=== PATIENT | male | born 1950 | race African-American/Black ===

== ENCOUNTER 2016-12-23 09:39 | Inpatient (IN) | payer MEDICAID, OTHER ==
[~2016-12-23] VITALS: Ht 175.3 cm; Wt 86.2 kg
--- NOTE | 2016-12-23 09:32 | Emergency Room Report ---
History of Present Illness General Source: Medical Record, EMS Present Illness HPI Patient is a 66-year-old male brought in by EMS after increased heart rate. Patient had a prior history of being vent and her trach dependent. Patient was noted to have elevated heart rate which had improved by the time the patient was transferred to the hospital. Patient was noted to have a prior history of COPD as well as prior tracheostomy in the past. Patient was noted to have any fever. Allergies: Coded Allergies: No Known Allergies (Unverified , 11/23/14) Patient History Reviewed Nursing Documentation: PMH: Agreed, PSxH: Agreed Review of Systems All Other Systems: limited - by mental status Physical Exam Sp02 EP Interpretation: reviewed, normal General Appearance: normal inspection, alert, mild distress, Chronically Ill Head: atraumatic ENT: normal ENT inspection, hearing grossly normal, normal voice Neck: normal inspection, supple, no bony tend, tracheotomy Respiratory: normal inspection, no retraction, no wheezing, rhonchi Cardiovascular #1: no edema, tachycardia Gastrointestinal: normal inspection, normal bowel sounds, non tender, soft, no guarding, no hernia Genitourinary: no CVA tenderness Musculoskeletal: normal inspection, back normal, decreased range of motion, other - extension contracture bilateral lower extremities Neurologic: normal inspection, alert, responsive, speech normal Psychiatric: normal inspection, mood/affect normal Skin: no rash, other - decubitus to sacrum Medical Decision Making Diagnostic Impression: Primary Impression: PNA (pneumonia) Additional Impressions: Lactic acidosis Renal calculus ER Course Patient presented for tachycardia. Differential diagnosis included wasn't limited to sepsis, medication withdrawal, thyroid storm, anemia, pulmonary embolism among others.Because of complexity of patient's case laboratory testing and imaging studies were ordered.I laboratory testing was notable for elevated white blood count. The patient's lack gas level is minimally elevated. CT abdomen pelvis was ordered due to the patient's abdominal distention. The CT read by radiology showed nonobstructing renal stone, there bilateral lung infiltrates with questionable underlying mass. Dr. Abrahan Umana was contracted for inpatient management. Labs Test 12/23/16 09:50 12/23/16 11:09 12/23/16 11:58 White Blood Count 12.2 K/UL (4.8-10.8) Red Blood Count 4.73 M/UL (4.70-6.10) Hemoglobin 14.9 G/DL (14.2-18.0) Hematocrit 44.5 % (42.0-52.0) Mean Corpuscular Volume 94 FL (80-99) Mean Corpuscular Hemoglobin 31.6 PG (27.0-31.0) Mean Corpuscular Hemoglobin Concent 33.5 G/DL (32.0-36.0) Red Cell Distribution Width 11.8 % (11.6-14.8) Platelet Count 265 K/UL (150-450) Mean Platelet Volume 7.6 FL (6.5-10.1) Neutrophils (%) (Auto) 77.7 % (45.0-75.0) Lymphocytes (%) (Auto) 13.7 % (20.0-45.0) Monocytes (%) (Auto) 5.4 % (1.0-10.0) Eosinophils (%) (Auto) 1.8 % (0.0-3.0) Basophils (%) (Auto) 1.5 % (0.0-2.0) Sodium Level 136 mEQ/L (135-145) Potassium Level 4.7 mEQ/L (3.4-4.9) Chloride Level 95 mEQ/L (98-107) Carbon Dioxide Level 25 mEQ/L (20-30) Anion Gap 16 (5-15) Blood Urea Nitrogen 19 mg/dL (7-23) Creatinine 0.6 mg/dL (0.7-1.2) Estimat Glomerular Filtration Rate > 60 mL/min (>60) Glucose Level 122 mg/dL (74-106) Calcium Level 9.6 mg/dL (8.6-10.2) Total Bilirubin 0.7 mg/dL (0.0-1.2) Aspartate Amino Transf (AST/SGOT) 111 U/L (5-40) Alanine Aminotransferase (ALT/SGPT) 109 U/L (3-41) Alkaline Phosphatase 144 U/L (40-129) Total Protein 9.1 g/dL (6.6-8.7) Albumin 3.5 g/dL (3.5-5.2) Globulin 5.6 g/dL Albumin/Globulin Ratio 0.6 (1.0-2.7) Lipase 25 U/L (< 60) Urine Color Pale yellow Urine Appearance Turbid Urine pH 8 (4.5-8.0) Urine Specific [place] 1.010 (1.005-1.035) Urine Protein 2+ (NEGATIVE) Urine Glucose (UA) Negative (NEGATIVE) Urine Ketones Negative (NEGATIVE) Urine Occult Blood 4+ (NEGATIVE) Urine Nitrite Positive (NEGATIVE) Urine Bilirubin Negative (NEGATIVE) Urine Urobilinogen 1 MG/DL (0.0-1.0) Urine Leukocyte Esterase 3+ (NEGATIVE) Urine RBC 5-10 /HPF (0 - 0) Urine WBC 10-15 /HPF (0 - 0) Urine Squamous Epithelial Cells Occasional /LPF Urine Bacteria Moderate /HPF (NONE) Lactic Acid Level 1.60 mmol/L (0.66-2.22) EKG Diagnostic Results Rate: normal - 100 Rhythm: NSR ST Segments: no acute changes ASA given to the pt in ED: No Rhythm Strip Diag. Results EP Interpretation: yes Rhythm: NSR, no PVC's, no ectopy Status: unchanged Disposition: ADMITTED INPATIENT Condition: Serious Casey Vann December 23, 2016 09:32
[~2016-12-23 09:39] MED LIST: ACETAMINOP160 MG/52 GT; ALBUTEROL2.5 MG/3 M INH; AMIKACIN MC; ASCORBIC ACID500 M4 GT; ASPIR 8181 MG ORAL; ASPIRIN81 MG GT; BISACODYL5 MG RECTAL; CALCIUM 500 +1 EAC5 GT; CATAPRES0.1 MG GT; CEFEPIME-D1 GM/50 ML IVPB; COLACE100 MG/10 GT; CRANBERRY450 M4 GT; DIFLUCAN100 MG ORAL; DILANTIN100 MG GT; EPOGEN2000 UNIT/ SUBQ; FERROUS SU300 MG/5 M GT; FERROUS SULFAT325 MG HE; FLAGYL500 MG GT; FLEET ENEMA133 ML RECTAL; HEPARIN SO5000 UNIT2 SUBQ; HEPARIN1000 UNIT/ SUBQ; JUVEN PACKET1 EAC1 GT; LISINOPRIL10 MG GT; LISINOPRIL5 MG GT; METOPROLOL TART25 MG GT; MILK OF MA400 MG/51 ORAL; MULTI VITAMIN1 EACH GT; NEXIUM40 MG ORAL; NOVOLOG100 UNIT/3 SUBQ; NS IV; PROTONIX40 M2 GT; SULFAMETHOXAZO473 ML GT; TYLENOL650 MG/20. ORAL; VANCOMYCIN1 GM/2502 IVPB; VITAMIN C500 M1 GT; ZINC SULFATE220 M1 GT; regular insulin
[2016-12-23] MEDS ORDERED: TENORMIN25 MG GT (09:55)
[2016-12-23] MEDS ORDERED: KEPPRA500 M4 GT (09:55)
[2016-12-23] MEDS ORDERED: LOPERAMIDE2 MG GT (09:55)
[2016-12-23] MEDS ORDERED: ATIVAN0.5 MG GT (09:55)
[2016-12-23 10:25] LABS: BASOPHILS % (AUTO) 1.5 % (0.0-2.0); EOSINOPHILS % (AUTO) 1.8 % (0.0-3.0); LYMPHOCYTES % (AUTO) 13.7 % (20.0-45.0); MEAN CORPUSCULAR HEMOGLOBIN 31.6 PG (27.0-31.0); MEAN CORPUSCULAR HGB CONC 33.5 G/DL (32.0-36.0); MEAN CORPUSCULAR VOLUME 94 FL (80-99); MEAN PLATELET VOLUME 7.6 FL (6.5-10.1); MONOCYTES % (AUTO) 5.4 % (1.0-10.0); NEUTROPHILS % (AUTO) 77.7 % (45.0-75.0); PLATELET COUNT 265 K/UL (150-450); RED BLOOD COUNT 4.73 M/UL (4.70-6.10); RED CELL DISTRIBUTION WIDTH 11.8 % (11.6-14.8); WHITE BLOOD COUNT 12.2 K/UL (4.8-10.8)
[2016-12-23 10:38] LABS: ALANINE AMINOTRANSFERASE 109 U/L (3-41); ALBUMIN/GLOBULIN RATIO 0.6 (1.0-2.7); ANION GAP 16 (5-15); ASPARTATE AMINO TRANSFERASE 111 U/L (5-40); CALCIUM 9.6 mg/dL (8.6-10.2); CARBON DIOXIDE 25 mEQ/L (20-30); CHLORIDE 95 mEQ/L (98-107); CREATININE 0.6 mg/dL (0.7-1.2); GLOMERULAR FILTRATION RATE > 60 mL/min (>60); HEMOLYSIS 23; LIPASE 25 U/L (< 60); POTASSIUM 4.7 mEQ/L (3.4-4.9); SODIUM 136 mEQ/L (135-145); TOTAL PROTEIN 9.1 g/dL (6.6-8.7)
[2016-12-23 10:40] LABS: REFLEX LACTIC ACID YES OR NO YES
[2016-12-23 10:51] VITALS: BP 149/98
[2016-12-23] MEDS ORDERED: OYSTER SHELL 51 EAC1 GT (11:06)
[2016-12-23] MEDS ORDERED: PROMOD946 ML GT (11:06)
[2016-12-23 11:50] LABS: APPEARANCE,URINE TURBID; KETONES,URINE NEGATIVE (NEGATIVE); LEUKOCYTE ESTERASE ,URINE 3+ (NEGATIVE); NITRITE,URINE POSITIVE (NEGATIVE); PH,URINE 8 (4.5-8.0); PROTEIN,URINE 2+ (NEGATIVE); UROBILINOGEN,URINE 1 MG/DL (0.0-1.0)
[2016-12-23 12:05] VITALS: BP 106/75
[2016-12-23] MEDS ORDERED: Ampicillin/Sulbactam Sod 3 GM in NS 110 ML IVPB ONE (12:15)
[2016-12-23 12:23] LABS: BACTERIA,URINE MODERATE /HPF; SQUAMOUS EPITHELIAL CELL,UR OCCASIONAL /LPF (NONE/OCC)
--- NOTE | 2016-12-23 13:08 | Diagnostic Imaging Report ---
Clinical Indication: Abdominal pain with abdominal distention gastrostomy site Technique: Patient given enteric contrast. IV administration nonionic contrast. Venous phase spiral acquisition obtained through the abdomen and pelvis. Multiplanar reconstructions were generated. Total dose length product 915 mGycm. CTDIvol(s) 17 mGy. Dose reduction achieved using automated exposure control Comparison: None Findings: There is a gastrostomy in good position, balloon within the gastric body, well apposed to the abdominal wall. There is no infiltration or other abnormality of the surrounding subcutaneous fat. No gastric distention. Stomach and duodenum otherwise grossly unremarkable. Unremarkable distal esophagus. Contrast is seen throughout the entirety of the small bowel and most of the colon. No small bowel distention or small bowel wall thickening is evident. Normal appendix. No evidence of diverticulosis or diverticulitis. No free or loculated intraperitoneal air or fluid is evident. There is diastasis of the rectus abdominis tendon, with anterior protrusion of the midline bowel, but no harshad herniation. There is a Robles catheter within the bladder. The bladder has an unusual appearance, appearing somewhat elongated with a portion of it projecting over the pubic symphysis. There are also some calcifications probably within the posterior bladder wall. These are not intraluminal. The seminal vesicles are unremarkable. No pelvic mass or adenopathy. The liver demonstrates diffuse low attenuation, compatible with fatty change. No focal abnormality. It is mildly enlarged. The gallbladder, pancreas, bile are unremarkable. The spleen is borderline enlarged, measuring 13.4 cm long axis dimension. The adrenals are unremarkable. Left kidney demonstrates a nonobstructive calculus within the upper pole renal sinus. It also demonstrates a subcentimeter low-attenuation lesion in the cortex which is too small to characterize. The right kidney is unremarkable. There is no hydronephrosis. No retroperitoneal or mesenteric mass or adenopathy. There is nonspecific stranding of the fat of the bilateral buttock regions extending laterally. There is thickening of the skin and subcutaneous fat adjacent to the distal sacrum and coccyx, compatible with decubitus changes. No ulceration or definite osseous abnormality is evident. There are degenerative changes of the bilateral hips. Fairly extensive consolidation is seen at both lung bases posteriorly. There are also masslike opacities at both lung bases. No effusions. The heart is upper limits of normal in size. There is prominent pericardial fat. Impression: No acute abnormality. No abnormal findings relatable to the gastrostomy tube Diastasis of the rectus abdominis tendon resulting in anterior protrusion of abdominal contents, without harshad herniation. This probably accounts for the clinically described abdominal distention. No evidence of bowel obstruction. Fairly extensive consolidation at both lung bases posteriorly. Masslike opacities at both lung bases probably represent areas of consolidation as well, followup but is recommended to exclude underlying neoplasm Unusual appearance to the bladder, as described. Apparent posterior wall bladder mural calcifications are probably dystrophic. There is also Robles catheter in place Hypoattenuating liver, compatible with diffuse fatty change. Liver is mildly enlarged Mild decubitus changes of the retrograde sacrococcygeal fat. No harshad ulceration or evidence of osteomyelitis. Correlation with clinical findings is recommended Borderline splenomegaly Nonobstructive left upper pole renal calculus Subcentimeter low-attenuation lesion within the left renal cortex, too small to characterize, most likely benign simple cortical cysts. No further followup necessary Bilateral hip degenerative changes The CT scanner at [facility] is accredited by -- the [place] [employer] and the scans are performed using protocols designed to limit radiation exposure to as low as reasonably achievable to attain images of sufficient resolution adequate for diagnostic evaluation.
[2016-12-23] MEDS ORDERED: Unasyn 3gm Inj ONE (13:14)
[2016-12-23 13:45] VITALS: BP 132/78
[2016-12-23 13:47] VITALS: BP 162/116
[2016-12-23 16:00] VITALS: BP 123/72
[2016-12-23] MEDS ORDERED: LORazepam 0.5mg tab GT PRN (16:15)
[2016-12-23] MEDS ORDERED: Bisacodyl EC 5mg tab ORAL PRN (16:15)
[2016-12-23] MEDS ORDERED: Milk of Magnesia 30ml Ud ORAL PRN (16:15)
[2016-12-23] MEDS ORDERED: Acetaminophen 650mg/20.3ml ORAL SCH (17:00)
[2016-12-23] MEDS: Docusate 100mg/10ml Liq GT SCH (17:53)
[2016-12-23] MEDS: NovoLOG Insulin Flexpen SUBQ SCH (17:54)
[2016-12-23] MEDS ORDERED: Acetaminophen 650mg/20.3ml ORAL PRN (18:30)
[2016-12-23] MEDS ORDERED: LORazepam Inj 2mg/ml 1ml IV PRN (19:00)
[2016-12-23] MEDS: Albuterol ud Inhalation HHN SCH (19:07)
--- NOTE | 2016-12-23 19:24 | Wound Care Consultation ---
Wound Assessment Wound Assessment #1: Wound Present on Admission: Yes New Wound: No Status Change of Wound: No Wound Location Body Site Modif: mid Wound Location Body Site: sacral Wound Type: pressure ulcer Zuleika Test: Does not Zuleika Wound Thickness: Full Thickness - scar tissue Wound Length: 6.0 Wound Width: 7.0 Wound Depth: utd Percent of Wound [place]/Red: 100 Wound Drainage Amount: None Wound Drainage Odor: None/Absent Tissue Surrounding Wound: Intact Wound General Appearance: Asymptomatic, Reddened, Open to air Wound Assessment #2: Wound Number: #2 Wound Present on Admission: Yes New Wound: No Status Change of Wound: No Wound Location Body Site Modif: right Wound Location Body Site: iliac crest Wound Type: pressure ulcer Zule[place] Test: Does not Z[place]ika Wound Thickness: Full Thickness - scar tissue Wound Length: 2.0 Wound Width: 3.0 Wound Depth: utd Percent of Wound [place]/Red: 100 Wound Drainage Amount: None Wound Drainage Odor: None/Absent Tissue Surrounding Wound: Intact Wound General Appearance: Asymptomatic, Reddened Wound Comment #1 Sacral full thickness scar tissue pressure ulcer #2 Right iliac crest full thickness scar tissue pressure ulcer Recommendation -Low air loss mattress -Keep clean and dry -Turn and reposition -Optimize nutrition -Offload both heels -Heel protector on both heels -Assess and f/u accordingly for any changes STEPHANIE WASHBURN RN December 23, 2016 19:24
[2016-12-23 20:00] VITALS: BP 141/82
[2016-12-23] MEDS ORDERED: Vancomycin 1.5 GM in D5W 325 ML IVPB ONE (20:00)
[2016-12-23] MEDS ORDERED: Phenytoin 100mg cap ORAL SCH ×2 (22:00)
[2016-12-23] MEDS: Ferrous Sulfate 300 MG/5 ML UDC GT SCH (22:03)
[2016-12-23] MEDS: levETIRAcetam 500mg/5ml Liquid GT SCH (22:04)
[2016-12-23] MEDS: Heparin 5000 units/ml inj SUBQ SCH (22:05)
[2016-12-23] MEDS: Piperacillin/Tazobactam 3.375 GM in D5W 110 ML IVPB SCH (22:05)
[2016-12-23] MEDS: metroNIDAZOLE 500mg tab GT SCH (22:05)
[2016-12-23] MEDS: Pantoprazole Inj IVP SCH (22:13)
[2016-12-24] VITALS: BP 144/78
--- NOTE | 2016-12-24 01:02 | History and Physical Report ---
DATE OF ADMISSION: 12/23/2016 REASON FOR ADMISSION: Elevated heart rate and respiratory distress. HISTORY OF PRESENT ILLNESS: The patient is a 66-year-old male, brought in for evaluation due to unstable vital signs. The patient is seen and evaluated and noted to have some abdominal pain. The patient's findings discussed with the ER physician. The patient also has evidence of pneumonia and mass-like opacities at both lung bases likely representing consolidation. PAST MEDICAL HISTORY: The patient's past medical history is notable for long standing history of respiratory failure, history of chronic encephalopathy, history of tracheostomy, and history of G-tube. MEDICATIONS: Reviewed. ALLERGIES: Reviewed. SOCIAL HISTORY: The patient resides at a [facility] facility and bedbound. PHYSICAL EXAMINATION: VITAL SIGNS: Noted and reviewed. Blood pressure 123/72, pulse 85, respirations 18, sats 91%, and temperature 97.9 degrees. HEENT: Fairly negative. NECK: Supple. No adenopathy. LUNGS: Clear and symmetric. CARDIAC: S1 and S2. Regular rate and rhythm. ABDOMEN: Soft and nontender. EXTREMITIES: No edema. NEUROLOGIC: Poorly responsive. LABORATORY DATA: Reviewed. IMPRESSION: 1. Evidence of bilateral pneumonia. 2. Elevated liver enzymes of unclear significance. 3. Seizure disorder. 4. Chronic encephalopathy. 5. Tracheostomy. 6. Gastrostomy tube. RECOMMENDATIONS: 1. Ventilatory management. 2. IV antibiotics. 3. Followup cultures. 4. Ventilatory support. 5. Feeding. 6. Resume shelter medications and follow clinically for changes and ongoing recommendations. Abrahan Umana M.D. DR: BROOKS JOB#: [id number] CC:
[2016-12-24] MEDS: Albuterol ud Inhalation HHN SCH ×4 (01:27→19:02)
[2016-12-24 04:00] VITALS: BP 135/78
[2016-12-24 04:28] LABS: ANION GAP 11 (5-15); CALCIUM 8.9 mg/dL (8.6-10.2); CARBON DIOXIDE 28 mEQ/L (20-30); CHLORIDE 100 mEQ/L (98-107); CREATININE 0.6 mg/dL (0.7-1.2); GLOMERULAR FILTRATION RATE > 60 mL/min (>60); HEMOLYSIS 9; POTASSIUM 4.3 mEQ/L (3.4-4.9); SODIUM 139 mEQ/L (135-145)
[2016-12-24 04:36] LABS: BASOPHILS % (AUTO) 1.1 % (0.0-2.0); EOSINOPHILS % (AUTO) 5.5 % (0.0-3.0); LYMPHOCYTES % (AUTO) 20.6 % (20.0-45.0); MEAN CORPUSCULAR HEMOGLOBIN 31.8 PG (27.0-31.0); MEAN CORPUSCULAR HGB CONC 33.8 G/DL (32.0-36.0); MEAN CORPUSCULAR VOLUME 94 FL (80-99); MEAN PLATELET VOLUME 7.5 FL (6.5-10.1); MONOCYTES % (AUTO) 10.7 % (1.0-10.0); PLATELET COUNT 208 K/UL (150-450); RED BLOOD COUNT 4.14 M/UL (4.70-6.10); RED CELL DISTRIBUTION WIDTH 11.7 % (11.6-14.8); WHITE BLOOD COUNT 6.8 K/UL (4.8-10.8)
[2016-12-24] MEDS: NovoLOG Insulin Flexpen SUBQ SCH ×4 (05:59→17:55)
[2016-12-24] MEDS: metroNIDAZOLE 500mg tab GT SCH ×3 (06:00→21:53)
[2016-12-24] MEDS: Piperacillin/Tazobactam 3.375 GM in D5W 110 ML IVPB SCH ×3 (06:00→22:01)
[2016-12-24 08:00] VITALS: BP 126/71
[2016-12-24] MEDS: Docusate 100mg/10ml Liq GT SCH ×2 (09:15→17:53)
[2016-12-24] MEDS: Aspirin Baby 81mg GT SCH (09:15)
[2016-12-24] MEDS: Zinc Sulfate 220mg cap GT SCH (09:16)
[2016-12-24] MEDS: Ascorbic Acid 500mg tab GT SCH (09:16)
[2016-12-24] MEDS: Pantoprazole Inj IVP SCH ×2 (09:17→21:53)
[2016-12-24] MEDS: Ferrous Sulfate 300 MG/5 ML UDC GT SCH ×2 (09:17→21:53)
[2016-12-24] MEDS: Multivitamins W/Minerals 15 ML UDC GT SCH (09:17)
[2016-12-24] MEDS: Heparin 5000 units/ml inj SUBQ SCH ×2 (09:23→21:54)
[2016-12-24] MEDS: Calcium Carbonate 500mg w/Vit D 200iu tab GT SCH (09:26)
[2016-12-24] MEDS: levETIRAcetam 500mg/5ml Liquid GT SCH ×2 (09:27→21:53)
[2016-12-24] MEDS: Fluconazole 100mg tab GT SCH (09:27)
[2016-12-24] MEDS: Atenolol 25mg tab GT SCH (09:27)
--- NOTE | 2016-12-24 09:35 | General Progress Note ---
Assessment/Plan Assessment/Plan IMPRESSION: 1. Evidence of bilateral pneumonia. 2. Elevated liver enzymes of unclear significance. 3. Seizure disorder. 4. Chronic encephalopathy. 5. Tracheostomy. 6. Gastrostomy tube. PLAN antibiotics follow up cultures vent meds follow up imaging and labs impression, plan, and exam edited and reviewed in detail care discussed with RN Subjective ROS Limited/Unobtainable: Yes Allergies: Coded Allergies: No Known Allergies (Unverified , 11/23/14) Subjective poor LOC Objective Last 24 Hour Vital Signs Date Time Temp Pulse Resp B/P Pulse Ox O2 Delivery O2 Flow Rate FiO2 12/24/16 09:27 100 126/71 12/24/16 07:22 105 27 100 Mechanical Ventilator 50 12/24/16 07:04 104 30 100 Mechanical Ventilator 50 12/24/16 07:03 104 30 50 12/24/16 05:25 86 29 50 12/24/16 04:00 88 12/24/16 04:00 97.9 88 25 135/78 100 Mechanical Ventilator 50 12/24/16 04:00 50 12/24/16 03:38 84 23 50 12/24/16 01:39 85 20 99 Mechanical Ventilator 50 12/24/16 01:27 84 22 99 Mechanical Ventilator 50 12/24/16 01:25 84 23 50 12/24/16 00:00 50 12/24/16 00:00 98.7 86 30 144/78 100 Mechanical Ventilator 50 12/24/16 00:00 84 12/23/16 23:24 82 26 50 12/23/16 21:20 79 19 50 12/23/16 20:00 88 12/23/16 20:00 50 12/23/16 20:00 99.0 86 19 141/82 100 Mechanical Ventilator 50 12/23/16 19:23 86 19 99 Mechanical Ventilator 50 12/23/16 19:07 85 19 99 Mechanical Ventilator 50 12/23/16 18:55 86 20 50 12/23/16 18:55 86 20 Mechanical Ventilator 50 12/23/16 16:50 93 26 50 12/23/16 16:00 97.9 85 18 123/72 99 Mechanical Ventilator 50 12/23/16 16:00 89 12/23/16 15:47 50 12/23/16 14:50 91 28 50 12/23/16 14:46 99.8 84 18 132/78 100 Mechanical Ventilator 50 12/23/16 13:45 99.8 84 18 132/78 100 Mechanical Ventilator 50 12/23/16 12:50 93 24 50 12/23/16 12:05 99.8 88 106/75 100 Mechanical Ventilator 50 12/23/16 11:10 86 28 50 12/23/16 10:51 97.9 88 18 149/98 100 Mechanical Ventilator 50 12/23/16 09:40 97 26 50 12/23/16 09:40 97 26 Mechanical Ventilator 50 Intake and Output 12/23/16 12/24/16 19:00 07:00 Intake Total 1265 ml 1662.5 ml Output Total 250 ml 1500 ml Balance 1015 ml 162.5 ml Intake Free Water 100 ml IV Total 100 ml 1662.5 ml Tube Feeding 65 ml Other 1000 ml Output Urine Total 250 ml 1500 ml Laboratory Tests 12/23/16 09:50: White Blood Count 12.2H, Red Blood Count 4.73, Hemoglobin 14.9, Hematocrit 44.5 , Mean Corpuscular Volume 94, Mean Corpuscular Hemoglobin 31.6H, Mean Corpuscular Hemoglobin Concent 33.5, Red Cell Distribution Width 11.8, Platelet Count 265, Mean Platelet Volume 7.6, Neutrophils (%) (Auto) 77.7H, Lymphocytes ( %) (Auto) 13.7L, Monocytes (%) (Auto) 5.4, Eosinophils (%) (Auto) 1.8, Basophils (%) (Auto) 1.5, Sodium Level 136, Potassium Level 4.7, Chloride Level 95L, Carbon Dioxide Level 25, Anion Gap 16H, Blood Urea Nitrogen 19, Creatinine 0.6L, Estimat Glomerular Filtration Rate > 60, Glucose Level 122H, Lactic Acid Level 2.10, Calcium Level 9.6, Total Bilirubin 0.7, Aspartate Amino Transf (AST/ SGOT) 111H, Alanine Aminotransferase (ALT/SGPT) 109H, Alkaline Phosphatase 144H , Total Protein 9.1H, Albumin 3.5, Globulin 5.6, Albumin/Globulin Ratio 0.6L, Lipase 25 12/23/16 11:09: Urine Color Pale yellow, Urine Appearance Turbid, Urine pH 8, Urine Specific [place] 1.010, Urine Protein 2+H, Urine Glucose (UA) Negative, Urine Ketones Negative, Urine Occult Blood 4+H, Urine Nitrite PositiveH, Urine Bilirubin Negative, Urine Urobilinogen 1H, Urine Leukocyte Esterase 3+H, Urine RBC 5-10H, Urine WBC 10-15H, Urine Squamous Epithelial Cells Occasional, Urine Bacteria ModerateH 12/23/16 11:58: Lactic Acid Level 1.60 12/24/16 03:50: White Blood Count 6.8, Red Blood Count 4.14L, Hemoglobin 13.2L, Hematocrit 38.9L , Mean Corpuscular Volume 94, Mean Corpuscular Hemoglobin 31.8H, Mean Corpuscular Hemoglobin Concent 33.8, Red Cell Distribution Width 11.7, Platelet Count 208, Mean Platelet Volume 7.5, Neutrophils (%) (Auto) 62.0, Lymphocytes (% ) (Auto) 20.6, Monocytes (%) (Auto) 10.7H, Eosinophils (%) (Auto) 5.5H, Basophils (%) (Auto) 1.1, Sodium Level 139, Potassium Level 4.3, Chloride Level 100, Carbon Dioxide Level 28, Anion Gap 11, Blood Urea Nitrogen 12, Creatinine 0.6L, Estimat Glomerular Filtration Rate > 60, Glucose Level 118H, Calcium Level 8.9 Height (Feet): 5 Height (Inches): 9.00 Weight (Pounds): 190 Objective HEENT: Fairly negative. NECK: Supple. No adenopathy. LUNGS: Clear and symmetric. CARDIAC: S1 and S2. Regular rate and rhythm. ABDOMEN: Soft and nontender. EXTREMITIES: No edema. NEUROLOGIC: Poorly responsive. PETERSON CALL December 24, 2016 09:35
[2016-12-24 12:00] VITALS: BP 139/73
[2016-12-24 16:15] VITALS: BP 131/78
[2016-12-24 20:00] VITALS: BP 133/71
[2016-12-24] MEDS: Vancomycin 1250mg in D5W 275ml IVPB SCH (20:33)
[2016-12-25] VITALS: BP 131/66
[2016-12-25] MEDS: NovoLOG Insulin Flexpen SUBQ SCH ×4 (01:02→17:44)
[2016-12-25] MEDS: Albuterol ud Inhalation HHN SCH ×4 (01:12→19:03)
[2016-12-25 04:06] VITALS: BP 134/79
[2016-12-25] MEDS: metroNIDAZOLE 500mg tab GT SCH ×3 (06:03→22:49)
[2016-12-25] MEDS: Piperacillin/Tazobactam 3.375 GM in D5W 110 ML IVPB SCH ×3 (06:03→22:30)
[2016-12-25 08:00] VITALS: BP 123/81
--- NOTE | 2016-12-25 08:51 | General Progress Note ---
Assessment/Plan Assessment/Plan IMPRESSION: 1. Evidence of bilateral pneumonia. -GNR 2. Elevated liver enzymes of unclear significance. 3. Seizure disorder. 4. Chronic encephalopathy. 5. Tracheostomy. 6. Gastrostomy tube. PLAN antibiotics as is follow up cultures and sens vent meds follow up imaging and labs hope to dc soon impression, plan, and exam edited and reviewed in detail care discussed with RN Subjective ROS Limited/Unobtainable: Yes Allergies: Coded Allergies: No Known Allergies (Unverified , 11/23/14) Subjective poor LOC Objective Last 24 Hour Vital Signs Date Time Temp Pulse Resp B/P Pulse Ox O2 Delivery O2 Flow Rate FiO2 12/25/16 08:09 50 12/25/16 08:00 98.1 94 24 123/81 100 Mechanical Ventilator 40 12/25/16 06:35 91 28 100 Mechanical Ventilator 40 12/25/16 06:35 90 30 40 12/25/16 06:25 90 28 100 Mechanical Ventilator 40 12/25/16 05:20 83 19 40 12/25/16 04:06 98.1 86 18 134/79 99 Mechanical Ventilator 12/25/16 04:00 87 12/25/16 04:00 50 12/25/16 03:08 81 18 40 12/25/16 02:02 93 22 99 Mechanical Ventilator 40 12/25/16 01:12 80 18 97 Mechanical Ventilator 40 12/25/16 01:00 80 18 40 12/25/16 00:00 97.9 85 18 131/66 97 Mechanical Ventilator 12/25/16 00:00 50 12/24/16 23:36 85 12/24/16 23:12 79 30 40 12/24/16 21:23 81 24 40 12/24/16 20:00 50 12/24/16 20:00 98.4 93 19 133/71 98 Mechanical Ventilator 40 12/24/16 19:14 85 12/24/16 19:13 90 23 40 12/24/16 19:12 90 23 99 Mechanical Ventilator 40 12/24/16 19:03 86 33 96 Mechanical Ventilator 50 12/24/16 17:03 92 32 40 12/24/16 16:15 97.9 92 25 131/78 98 Mechanical Ventilator 40 12/24/16 16:06 50 12/24/16 16:00 99 12/24/16 15:05 90 34 40 12/24/16 13:55 105 25 100 Mechanical Ventilator 40 12/24/16 13:45 90 34 97 Mechanical Ventilator 50 12/24/16 12:55 87 31 40 12/24/16 12:00 88 12/24/16 12:00 98.1 91 139/73 Mechanical Ventilator 50 12/24/16 12:00 50 12/24/16 11:03 70 28 40 12/24/16 09:27 100 126/71 12/24/16 09:17 95 18 40 Intake and Output 12/24/16 12/25/16 19:00 07:00 Intake Total 2185.0 ml 2460.000 ml Output Total 751 ml Balance 1434.0 ml 2460.000 ml Intake Free Water 100 ml 300 ml IV Total 1065.0 ml 1385.000 ml Tube Feeding 780 ml 715 ml Other 240 ml 60 ml Output Urine Total 750 ml Stool Total 1 ml # Bowel Movements 2 3 Height (Feet): 5 Height (Inches): 9.00 Weight (Pounds): 190 Objective HEENT: Fairly negative. NECK: Supple. No adenopathy. LUNGS: Clear and symmetric. CARDIAC: S1 and S2. Regular rate and rhythm. ABDOMEN: Soft and nontender. EXTREMITIES: No edema. NEUROLOGIC: Poorly responsive. PETERSON CALL December 25, 2016 08:51
[2016-12-25] MEDS ORDERED: Fleet's Enema 133ml RECTAL PRN (09:00)
[2016-12-25] MEDS: Aspirin Baby 81mg GT SCH (09:28)
[2016-12-25] MEDS: Multivitamins W/Minerals 15 ML UDC GT SCH (09:29)
[2016-12-25] MEDS: Zinc Sulfate 220mg cap GT SCH (09:29)
[2016-12-25] MEDS: Pantoprazole Inj IVP SCH ×2 (09:29→20:20)
[2016-12-25] MEDS: Calcium Carbonate 500mg w/Vit D 200iu tab GT SCH (09:29)
[2016-12-25] MEDS: Fluconazole 100mg tab GT SCH (09:30)
[2016-12-25] MEDS: Docusate 100mg/10ml Liq GT SCH ×2 (09:30→17:39)
[2016-12-25] MEDS: Ferrous Sulfate 300 MG/5 ML UDC GT SCH ×2 (09:30→20:19)
[2016-12-25] MEDS: Ascorbic Acid 500mg tab GT SCH (09:31)
[2016-12-25] MEDS: Atenolol 25mg tab GT SCH (09:31)
[2016-12-25] MEDS: levETIRAcetam 500mg/5ml Liquid GT SCH ×2 (09:31→20:20)
[2016-12-25] MEDS: Heparin 5000 units/ml inj SUBQ SCH ×2 (09:33→20:22)
[2016-12-25 12:00] VITALS: BP 128/74
[2016-12-25 16:00] VITALS: BP 112/78
[2016-12-25 20:00] VITALS: BP 126/73
[2016-12-25] MEDS: Vancomycin 1250mg in D5W 275ml IVPB SCH (20:19)
[2016-12-26] VITALS: BP 133/85
[2016-12-26] MEDS: NovoLOG Insulin Flexpen SUBQ SCH ×3 (00:33→12:13)
[2016-12-26] MEDS: Albuterol ud Inhalation HHN SCH ×3 (00:39→12:52)
[2016-12-26 04:00] VITALS: BP 128/78
[2016-12-26] MEDS: metroNIDAZOLE 500mg tab GT SCH (06:35)
[2016-12-26] MEDS: Piperacillin/Tazobactam 3.375 GM in D5W 110 ML IVPB SCH (06:35)
[2016-12-26 08:00] VITALS: BP 144/80
[2016-12-26] MEDS: Docusate 100mg/10ml Liq GT SCH (09:08)
[2016-12-26] MEDS: Fluconazole 100mg tab GT SCH (09:08)
[2016-12-26] MEDS: Aspirin Baby 81mg GT SCH (09:08)
[2016-12-26] MEDS: Ascorbic Acid 500mg tab GT SCH (09:09)
[2016-12-26] MEDS: levETIRAcetam 500mg/5ml Liquid GT SCH (09:09)
[2016-12-26] MEDS: Pantoprazole Inj IVP SCH (09:09)
[2016-12-26] MEDS: Ferrous Sulfate 300 MG/5 ML UDC GT SCH (09:09)
[2016-12-26] MEDS: Calcium Carbonate 500mg w/Vit D 200iu tab GT SCH (09:09)
[2016-12-26] MEDS: Atenolol 25mg tab GT SCH (09:10)
--- NOTE | 2016-12-26 09:15 | General Progress Note ---
Assessment/Plan Assessment/Plan IMPRESSION: 1. Evidence of bilateral pneumonia. -GNR 2. Elevated liver enzymes of unclear significance. 3. Seizure disorder. 4. Chronic encephalopathy. 5. Tracheostomy. 6. Gastrostomy tube. PLAN antibiotics to adjust to bactrim reviewed cultures and sens vent meds dc today impression, plan, and exam edited and reviewed in detail care discussed with RN Subjective ROS Limited/Unobtainable: Yes Allergies: Coded Allergies: No Known Allergies (Unverified , 11/23/14) Subjective poor LOC Objective Last 24 Hour Vital Signs Date Time Temp Pulse Resp B/P Pulse Ox O2 Delivery O2 Flow Rate FiO2 12/26/16 08:55 86 20 40 12/26/16 08:18 40 12/26/16 08:00 79 12/26/16 06:50 70 20 40 12/26/16 06:50 70 20 100 Mechanical Ventilator 40 12/26/16 06:40 71 19 100 Mechanical Ventilator 40 12/26/16 05:22 90 25 40 12/26/16 04:00 97.8 81 26 128/78 100 Mechanical Ventilator 40 12/26/16 04:00 81 12/26/16 04:00 40 12/26/16 03:10 90 19 40 12/26/16 01:05 89 21 100 Mechanical Ventilator 40 12/26/16 00:38 88 25 40 12/26/16 00:38 88 29 99 Mechanical Ventilator 40 12/26/16 00:00 98.2 85 27 133/85 100 Mechanical Ventilator 40 12/26/16 00:00 40 12/25/16 23:41 72 12/25/16 21:00 88 19 40 12/25/16 20:00 98.2 86 18 126/73 100 Mechanical Ventilator 40 12/25/16 20:00 50 12/25/16 19:34 81 12/25/16 19:29 88 23 100 Mechanical Ventilator 40 12/25/16 19:03 86 29 99 Mechanical Ventilator 40 12/25/16 19:00 86 29 40 12/25/16 17:04 81 25 40 12/25/16 16:00 87 12/25/16 16:00 98.8 85 32 112/78 99 Mechanical Ventilator 40 12/25/16 16:00 50 12/25/16 15:22 89 35 40 12/25/16 12:40 82 23 100 Mechanical Ventilator 40 12/25/16 12:40 83 30 40 12/25/16 12:30 83 28 100 Mechanical Ventilator 40 12/25/16 12:07 50 12/25/16 12:00 81 12/25/16 12:00 98.2 82 22 128/74 99 Mechanical Ventilator 40 12/25/16 10:49 87 30 40 12/25/16 09:31 92 123/81 12/25/16 09:16 92 29 40 Intake and Output 12/25/16 12/26/16 19:00 07:00 Intake Total 2247.5 ml 2325.000 ml Output Total 1201 ml 2325 ml Balance 1046.5 ml 0 ml Intake Free Water 100 ml 200 ml IV Total 1192.5 ml 1285.000 ml Tube Feeding 715 ml 780 ml Other 240 ml 60 ml Output Urine Total 1200 ml 2325 ml Stool Total 1 ml # Bowel Movements 1 2 Height (Feet): 5 Height (Inches): 9.00 Weight (Pounds): 190 Objective HEENT: Fairly negative. NECK: Supple. No adenopathy. LUNGS: Clear and symmetric. CARDIAC: S1 and S2. Regular rate and rhythm. ABDOMEN: Soft and nontender. EXTREMITIES: No edema. NEUROLOGIC: Poorly responsive. PETERSON CALL December 26, 2016 09:15
[2016-12-26] MEDS: Heparin 5000 units/ml inj SUBQ SCH (09:16)
[2016-12-26] MEDS: Multivitamins W/Minerals 15 ML UDC GT SCH (09:29)
[2016-12-26] MEDS: Zinc Sulfate 220mg cap GT SCH (09:29)
[2016-12-26] MEDS ORDERED: Bactrim DS (160mg/800mg) tab ORAL SCH ×2 (10:00→18:00)
--- NOTE | 2016-12-26 11:09 | Diagnostic Imaging Report ---
Indication: Dyspnea Comparison: 12/23/18 A single view chest radiograph was obtained. Findings: Perihilar infiltrate versus mild edema noted. Please correlate clinically. Heart is borderline enlarged. Tracheostomy noted. Impression: Fluffy perihilar infiltrates versus mild central interstitial edema. Please correlate clinically
[2016-12-26 12:00] VITALS: BP 124/77
--- NOTE | 2016-12-27 08:03 | Cardiology Report ---
APPROVED REPORT EKG Measurement Heart [id number] Normal sinus rhythm Left anterior fascicular block Abnormal ECG
[2016-12-27] MEDS ORDERED: Fluconazole 100mg tab GT SCH (09:00)
--- NOTE | 2016-12-27 10:19 | Consultation ---
Consult Note Consult Note PULMONARY CONSULTATION (asked by primary insurance- [facility]- to follow patient) HISTORY OF PRESENT ILLNESS: The patient is a 66-year-old male, brought in for evaluation due to unstable vital signs. The patient is seen and evaluated and noted to have some abdominal pain. T The patient also has evidence of pneumonia and mass-like opacities at both lung bases likely representing consolidation. PAST MEDICAL HISTORY: The patient's past medical history is notable for long standing history of respiratory failure, history of chronic encephalopathy, history of tracheostomy, and history of G-tube. MEDICATIONS: Reviewed. ALLERGIES: Reviewed. SOCIAL HISTORY: The patient resides at a intermediate facility and bedbound. PHYSICAL EXAMINATION: VITAL SIGNS: Noted and reviewed. Blood pressure 123/72, pulse 85, respirations 18, sats 91%, and temperature 97.9 degrees. HEENT: Fairly negative. NECK: Supple. No adenopathy. LUNGS: Clear and symmetric. CARDIAC: S1 and S2. Regular rate and rhythm. ABDOMEN: Soft and nontender. EXTREMITIES: No edema. NEUROLOGIC: Poorly responsive. LABORATORY DATA: Reviewed. IMPRESSION: 1. Evidence of bilateral pneumonia. 2. Elevated liver enzymes of unclear significance. 3. Seizure disorder. 4. Chronic encephalopathy. 5. Tracheostomy. 6. Gastrostomy tube. RECOMMENDATIONS: 1. Ventilatory management. 2. IV antibiotics. 3. Followup cultures. 4. Ventilatory support. A this point patient is stable and is being discharged back to SNF Ashish Esqueda M.D. Ashish Esqueda MD December 27, 2016 10:19
--- NOTE | 2016-12-28 09:23 | Discharge Summary ---
Discharge Summary Hospital Course Date of Admission December 23, 2016 at 12:40 Date of Discharge December 26, 2016 at 15:30 Admitting Diagnosis tachycardia MAI Felipe is a 66 year old male who was admitted on December 23, 2016 at 12:40 for Tachycardia Hospital Course dc summary #[id number] Discharge Condition Upon Discharge: stable Discharge Disposition Patient was discharged to SNF/Subacute Facility(03) Discharge Diagnoses: Discharge Instructions Discharge Instructions Special Instructions I have been assigned to complete a D/C Summary on this account. I was not involved in the patient management Maisha Raines NP (Vanchtein) December 28, 2016 09:23
--- NOTE | 2016-12-29 01:15 | Discharge Summary 2 SIG ---
DATE OF ADMISSION: 12/23/2016 DATE OF DISCHARGE: 12/26/2016 REASON FOR ADMISSION: The patient is a 66-year-old male, chronically ventilator dependent with tracheostomy, history of G-tube, seizure disorder, chronic encephalopathy, and COPD, was sent to emergency room from a retirement facility with increased heart rate. Workup in the emergency room revealed leukocytosis, WBC 12.2. Chest x-ray revealed bilateral consolidation consistent with bilateral pneumonia. Lactic acid was 1.6. Urinalysis with evidence of UTI, elevated LFT, AST 111, and ALT 109. The patient admitted for further management. ADMITTING DIAGNOSES: 1. Bilateral pneumonia. 2. Ventilator-dependent respiratory failure, tracheostomy status. 3. Elevated liver function test. 4. Dysphagia. 5. Gastrostomy tube. 6. Urinary tract infection. 7. Chronic encephalopathy. 8. Seizure disorder. 9. Chronic obstructive pulmonary disease. HOSPITAL STAY: The patient admitted to ICU. Ventilator support provided. Pulmonary toilet provided. CT of the abdomen and pelvis revealed no acute abnormalities. Blood cultures were negative. Urine culture revealed Providencia and E. coli. Leukocytosis resolved. Strict aspiration precautions were maintained. The patient able to tolerate G-tube feeding. No seizure activity while in the hospital. All retirement facility medications were resumed. Pulmonary it web development consultant per the patient's primary insurance from [employer] [facility] seen the patient and discharged the patient back to retirement facility. The patient needs further investigation in regards of elevated LFT. Possibly change anticonvulsant medication from Keppra to another one, which does not cause LFT elevation. Monitor LFT in the retirement facility. Continue antibiotics for urinary tract infection/pneumonia. Again leukocytosis resolved. No fever. Heart rate stable. The patient was stable for discharge. FINAL DIAGNOSES: 1. Bilateral pneumonia. 2. Ventilator-dependent respiratory failure. 3. Tracheostomy status. 4. Chronic obstructive pulmonary disease. 5. Dysphagia with gastrostomy tube. 6. Elevated liver function test. 7. Seizure disorder. 8. Chronic encephalopathy. 9. Urinary tract infection with Escherichia coli and Providencia, polymicrobial. DISCHARGE MEDICATIONS: List of medications was sent with the patient to retirement facility. DISCHARGE INSTRUCTIONS: The patient discharged to subacute retirement facility. FOLLOWUP: Follow up with the primary doctor and operation research analyst at the facility. Abrahan Umana M.D. I have been assigned to dictate discharge summary on this account and I was not involved in the patient's management. Maisha Raines N.P. (vanchtein) DR: RADHA JOB#: [id number] CC:
== END 2016-12-26 15:30 | DRG 139 ==
LOC: EDBD 09:39 → EMR 09:57 → 2W 12:40 → EDBEDREQ 13:01
PROC: 5A1945Z Respiratory Ventilation, 24-96 Consecutive Hours (ICD-10-PCS; principal; 2016-12-23)
DX: J18.9 Pneumonia, unspecified organism (principal); G93.40 Encephalopathy, unspecified; Z43.0 Encounter for attention to tracheostomy; G40.909 Epilepsy, unspecified, not intractable, without status epilepticus; Z43.1 Encounter for attention to gastrostomy
CPT/HCPCS: 36415; 71010; 74177; 80048; 80053; 81003; 82962; 83605; 83690; 85025; 87040; 87081; 87086; 87181; 93005; 94002; 94003; 94640; 94644; 94664; J1815

== ENCOUNTER 2017-03-12 16:01 | Inpatient (IN) | payer OTHER ==
[2017-03-11 23:00] VITALS: BP 90/69
[2017-03-12] VITALS (8 sets, daily range): BP systolic 90–159; BP diastolic 57–93
[~2017-03-12] VITALS: Ht 170.2 cm; Wt 72.6 kg
[~2017-03-12 16:01] MED LIST changes: +ATIVAN0.5 MG GT; +Cefepime HCl 1 GM in NS 55 ML IV STA; +KEPPRA500 M4 GT; +LOPERAMIDE2 MG GT; +OYSTER SHELL 51 EAC1 GT; +PROMOD946 ML GT; +TENORMIN25 MG GT
[2017-03-12] MEDS ORDERED: DUONEB 0.5-3(2.53 ML HHN (16:34)
[2017-03-12] MEDS ORDERED: dulcolax supp RC (16:34)
[2017-03-12] MEDS ORDERED: VITAMIN C GT (16:34)
--- NOTE | 2017-03-12 16:34 | Emergency Room Report ---
History of Present Illness General Chief Complaint: Male Urogenital Problems Source: Medical Record, EMS Present Illness HPI [id number] sent from SNF for ?1-2 days hematuria. Indwelling Clark. SNF also reporting distended abdomen. No family member bedside No other info available. From EMR: Chronically ventilator dependent with tracheostomy, history of G-tube , seizure disorder, chronic encephalopathy, and COPD. Recent admission for sepsis Urine Cx May: Ecoli and providencia, both with CFU >100K Allergies: Coded Allergies: No Known Allergies (Unverified , 11/23/14) UNABLE TO ASSESS (Unverified , 03/12/17) Patient History Past Medical History: other - see hpi Past Surgical History: other - see hpi Pertinent Family History: unable to obtain Immunizations: UTD Reviewed Nursing Documentation: PMH: Agreed, PSxH: Agreed Nursing Documentation-PMH Hx Hypertension: Yes Hx Pacemaker: No Hx Asthma: No Hx Diabetes: Yes Hx Cancer: No Hx Gastrointestinal Problems: Yes History Of Psychiatric Problem: Yes - Opioid Dependence Hx Neurological Problems: Yes Hx Cerebrovascular Accident: Yes Hx Seizures: Yes Hx Paralysis: Yes Hx Speech Problem: Yes - TRACHD Hx Dysphasia: Yes Review of Systems All Other Systems: limited - trach dependent, non-verbal Physical Exam Vital Signs Date Time Temp Pulse Resp B/P Pulse Ox O2 Delivery O2 Flow Rate FiO2 03/12/17 15:46 Ambu-Bag 15.0 Sp02 EP Interpretation: reviewed, normal General Appearance: normal inspection, well appearing, no apparent distress, alert Head: normocephalic, atraumatic Eyes: bilateral eye EOMI, bilateral eye PERRL ENT: normal ENT inspection, hearing grossly normal, normal voice Neck: normal inspection, full range of motion, supple, no bony tend, tracheotomy Respiratory: normal inspection, lungs clear, normal breath sounds, no respiratory distress, no retraction, no wheezing Cardiovascular #1: regular rate, rhythm, no edema Gastrointestinal: normal inspection, normal bowel sounds, no guarding, no hernia, distended, other - Gtube in place which was connected to suction when patient started vomiting Genitourinary: no CVA tenderness, other - Gross hematuria in clark tubing Musculoskeletal: normal inspection, back normal, normal range of motion, Riki' s Sign negative Neurologic: normal inspection, alert, responsive, speech normal, other - 4 limb movement normal Psychiatric: normal inspection, judgement/insight normal, mood/affect normal Skin: normal inspection, normal color, no rash Procedures Central Line Central Line : Consent: Emergent Central Line Lumen: triple Maximal Sterile Barrier Tech: yes cap, yes mask, yes sterile gown, yes sterile gloves, yes large sterile sheet, yes hand hygiene, yes chlorhexidine prep No Max Barrier Tech Because: emergency insertion Central Line Postion: femoral (R) Anesthesia: Lidocaine Patient Tolerated: Well - 3 Complications: None Progress Unsuccessful placement for right IJ central lumen Unable to place IJ d/t trach Multiple attempts at ultrasound guided-peripheral done, lines "blew" per RN after EDMD placement Right tibial IO placed Will need PICC tomorrow Medical Decision Making Diagnostic Impression: Primary Impression: Hematuria, gross Additional Impressions: Clark catheter in place Bladder distended Hemoperitoneum (nontraumatic) Sepsis Qualified Codes: A41.9 - Sepsis, unspecified organism ER Course Tachycardia, hypotensive, febrile Gross hematuria CXR negative for PNA UA with blood. Not an obvious UTI Labs: leuks 22k. Given abd distention and no clear source of sepsis, CTAP was done to eval for source CT: Severely distended bladder with Clark, ?catheter malfunction, clots in bladder Clark was replaced with 3-way 22F clark in ED and bladder irrigation was done - 2L was infused into bladder by RN without telling MD - there was minimal output Consulted Dr Sterling who recommended manual irrigation of Clark and 3L blood was drained from bladder via periodic clearance of clots Abd less distended after 3L blood clearance. I also spoke to Dr Sterling about concern for bladder rupture given small amount of hemoperitoneum noted on CT - he advised leaving existing Clark to gravity drainage and will see patient in morning Serial H&Hs are stable. No need for transfusion. Empiric Abx were given for infection Blood and Urine Cx pending Endorsed to Dr Palacio for Dr Esqueda as insurance capitated patient for ICU at 830pm EKG Diagnostic Results Rate: tachycardiac Rhythm: NSR ST Segments: no acute changes ASA given to the pt in ED: No Rhythm Strip Diag. Results EP Interpretation: yes Rate: 105 Rhythm: NSR, other - LAFB Chest X-Ray Diagnostic Results Chest X-Ray Diagnostic Results : Chest X-Ray Ordered: Yes # of Views/Limited/Complete: 1 View Indication: Other - Sepsis EP Interpretation: Yes Interpretation: no consolidation, no effusion, no pneumothorax, no acute cardiopulmonary disease, other - Resolution of previosly seen perihilar infiltrate/central edema Impression: No acute disease Interpreting ER Provider: Electronically signed by Dr Camargo Last Vital Signs Date Time Temp Pulse Resp B/P Pulse Ox O2 Delivery O2 Flow Rate FiO2 03/12/17 15:46 Ambu-Bag 15.0 Status: improved Disposition: ADMITTED INPATIENT Condition: Serious HAYLIE CAMARGO M.D. Mar 12, 2017 16:34
[2017-03-12 16:41] LABS: APPEARANCE,URINE CLOUDY; KETONES,URINE 2+ (NEGATIVE); LEUKOCYTE ESTERASE ,URINE NEGATIVE (NEGATIVE); MEAN CORPUSCULAR HEMOGLOBIN 34.6 PG (27.0-31.0); MEAN CORPUSCULAR HGB CONC 36.4 G/DL (32.0-36.0); MEAN CORPUSCULAR VOLUME 95 FL (80-99); NITRITE,URINE NEGATIVE (NEGATIVE); PH,URINE 8 (4.5-8.0); PLATELET COUNT 429 K/UL (150-450); PROTEIN,URINE 4+ (NEGATIVE); RED BLOOD COUNT 3.73 M/UL (4.70-6.10); RED CELL DISTRIBUTION WIDTH 11.6 % (11.6-14.8); UROBILINOGEN,URINE NORMAL MG/DL (0.0-1.0)
[2017-03-12 16:44] LABS: WHITE BLOOD COUNT 22.2 K/UL (4.8-10.8)
[2017-03-12] MEDS ORDERED: Cefepime 1gm vial ONE (17:01)
[2017-03-12 17:18] LABS: BACTERIA,URINE FEW /HPF
[2017-03-12 17:20] LABS: TROPONIN I < 0.30 ng/mL (<=0.30)
[2017-03-12 17:23] LABS: ALANINE AMINOTRANSFERASE 81 U/L (3-41); ALBUMIN/GLOBULIN RATIO 0.6 (1.0-2.7); ANION GAP 25 (5-15); ASPARTATE AMINO TRANSFERASE 81 U/L (5-40); CALCIUM 9.9 mg/dL (8.6-10.2); CARBON DIOXIDE 14 mEQ/L (20-30); CHLORIDE 92 mEQ/L (98-107); CREATININE 1.3 mg/dL (0.7-1.2); GLOMERULAR FILTRATION RATE > 60 mL/min (>60); HEMOLYSIS 2; LIPASE 23 U/L (< 60); POTASSIUM 5.6 mEQ/L (3.4-4.9); SODIUM 131 mEQ/L (135-145); TOTAL PROTEIN 8.8 g/dL (6.6-8.7)
[2017-03-12 17:29] LABS: REFLEX LACTIC ACID YES OR NO YES
[2017-03-12] MEDS ORDERED: Acetaminophen 650 MG SUPP RECTAL ONE (17:30)
[2017-03-12 17:34] LABS: CKMB 2.1 ng/mL (< 6.7)
[2017-03-12] MEDS ORDERED: Albuterol ud Inhalation HHN ONE (17:45)
[2017-03-12] MEDS ORDERED: Calcium Gluconate 1gm/10ml vial IVP ONE (17:45)
[2017-03-12] MEDS ORDERED: Piperacillin/Tazobactam 3.375 GM in NS 110 ML IVPB ONE (17:45)
[2017-03-12] MEDS ORDERED: Sodium Polystyrene Sulfonate 15gm Powder ORAL ONE (17:45)
[2017-03-12 18:04] LABS: BAND NEUTROPHILS % (MANUAL) 3 % (0-8); LYMPHOCYTES % (MANUAL) 16 % (20-45); NEUTROPHILS % (MANUAL) 71 % (45-75); TOTAL CELLS COUNTED 100
[2017-03-12 18:05] LABS: BASOPHILS % (MANUAL) 0 % (0-2); EOSINOPHILS % (MANUAL) 0 % (0-3); PLATELET ESTIMATE ADEQUATE; PLATELET MORPHOLOGY NORMAL
[2017-03-12] MEDS ORDERED: Zosyn 3.375gm inj ONE (18:12)
[2017-03-12] MEDS ORDERED: Metoclopramide 10mg/2ml Inj IVP PRN (20:00)
[2017-03-12] MEDS ORDERED: Nystatin Powder 100,000 units/gm 15gm TOPIC SCH (20:00)
[2017-03-12 20:49] LABS: MEAN CORPUSCULAR HEMOGLOBIN 33.5 PG (27.0-31.0); MEAN CORPUSCULAR HGB CONC 34.1 G/DL (32.0-36.0); MEAN CORPUSCULAR VOLUME 98 FL (80-99); MEAN PLATELET VOLUME 6.2 FL (6.5-10.1); PLATELET COUNT 427 K/UL (150-450); RED BLOOD COUNT 3.61 M/UL (4.70-6.10)
[2017-03-12 20:54] LABS: WHITE BLOOD COUNT 23.2 K/UL (4.8-10.8)
[2017-03-12] MEDS ORDERED: NovoLOG Insulin Flexpen SUBQ SCH (21:00)
[2017-03-12] MEDS ORDERED: DuoNeb 0.5-3(2.5)mg/3ml neb HHN SCH (21:00)
[2017-03-12 21:23] LABS: PROTHROMBIN TIME 10.5 SEC (9.30-11.50)
[2017-03-12 21:26] LABS: BAND NEUTROPHILS % (MANUAL) 5 % (0-8); EOSINOPHILS % (MANUAL) 1 % (0-3); LYMPHOCYTES % (MANUAL) 13 % (20-45); NEUTROPHILS % (MANUAL) 75 % (45-75); TOTAL CELLS COUNTED 100
[2017-03-12 21:27] LABS: BASOPHILS % (MANUAL) 0 % (0-2); PLATELET ESTIMATE ADEQUATE; PLATELET MORPHOLOGY NORMAL
[2017-03-12] MEDS: D5NS 1,000 ML IV SCH (21:36)
[2017-03-12] MEDS ORDERED: Piperacillin/Tazobactam 3.375 GM in D5W 110 ML IVPB SCH (22:00)
[2017-03-12] MEDS: levETIRAcetam 500mg/NS100ml 100 ML IVPB SCH (22:55)
[2017-03-12] MEDS ORDERED: Vancomycin 1.5gm/D5W 250ml 250 ML IVPB SCH (23:00)
[2017-03-12] MEDS: NovoLOG Insulin Flexpen SUBQ SCH (23:13)
[2017-03-12] MEDS: DuoNeb 0.5-3(2.5)mg/3ml neb HHN SCH (23:25)
[2017-03-13] VITALS (24 sets, daily range): BP systolic 80–136; BP diastolic 54–88
[2017-03-13] MEDS ORDERED: LORazepam Inj 2mg/ml 1ml ONE (02:14)
[2017-03-13] MEDS: LORazepam Inj 2mg/ml 1ml IV PRN ×2 (02:21→17:01)
[2017-03-13] MEDS: DuoNeb 0.5-3(2.5)mg/3ml neb HHN SCH ×5 (03:00→19:59)
--- NOTE | 2017-03-13 05:00 | History and Physical Report ---
DATE OF ADMISSION: 03/12/2017 PULMONARY CRITICAL CARE HISTORY AND PHYSICAL REASON FOR ADMISSION: Ventilator-dependent respiratory failure and septic shock. HISTORY OF PRESENT ILLNESS: The patient is an elderly gentleman, who was admitted to the medical center through the emergency room from the custodial with a transfer diagnosis of encephalopathy. Upon entering the emergency room, the patient was noted to have hematuria, bright red blood per rectum, distended abdomen, and recurrent episodes of vomiting. His G-tube was placed to suction with minimal output. His Robles was changed to a three-way and continuous bladder irrigation was ordered. He was given broad-spectrum antibiotics. A CT scan of his abdomen and pelvis is pending. His chest x-ray was essentially normal. He is on a trach and vent and his settings were continued. He was awake. They were unable to obtain IV access and an IO was placed. He was given one liter of fluid with improvement of his blood pressure. He has had no fever here in the emergency room. His history is obtained from these transferred medical records. He is not able to communicate at this time. Of note, the patient is having gross hematuria as stated and GI bleeding. PAST MEDICAL HISTORY: Per his medical record includes G-tube, diabetes, obstructive uropathy, sacral pressure ulcer, COPD, coronary artery disease, hyponatremia, DVT, PE, anxiety, CVA, tracheostomy, diabetes, and hypertension. PAST SURGICAL HISTORY: Trach and PEG. MEDICATIONS: Pre-hospital medications reviewed, reconciled, and documented in electronic medical record on dose, frequency and route. SOCIAL HISTORY: Unavailable. FAMILY HISTORY: Unavailable. REVIEW OF SYSTEMS: Unavailable due to current condition. PHYSICAL EXAMINATION: VITAL SIGNS: Currently, he is afebrile. His pulse is 90 and respirations are 34. He is on a ventilator with current settings AC 500, 5 PEEP, and 40% FiO2. HEENT: His oropharynx is moist. Nasal mucosa is moist. NECK: Supple without lymphadenopathy. Trach is clean, dry, and intact. LUNGS: Have scant rhonchi. HEART: Regular rate and rhythm with an audible murmur. ABDOMEN: Distended, tense, and tender to palpation. EXTREMITIES: There is no lower extremity edema. He moves extremities, but does not follow commands consistently. LABORATORY VALUES: Pending at this time. White count 22.2, hemoglobin 12.9, and platelets are 429,000. His chemistries had a sodium 131, potassium 5.6, chloride 92, bicarbonate 14, BUN 36, creatinine 13, and glucose is 294. Mag is 1.5. AST and ALT are 81 2019. Lipase is 23. TSH is 1.4. Urinalysis was obtained. Leukocyte esterase was negative. ASSESSMENT AND PLAN: 1. Ventilator-dependent respiratory failure. 2. Septic shock. 3. Profuse hematuria. 4. Gastrointestinal bleed with acute abdomen. 5. No evidence of pneumonia on current x-ray. 6. History of deep venous thrombosis, chronic obstructive pulmonary disease, and cerebrovascular accident. Plan for the patient, he is being transferred directly to the intensive care unit. The ER was unable to place a triple-lumen catheter in his groin and did not attempt in the subclavian or IJ due to his trach. He has been placed on broad-spectrum antibiotics, which will be continued. Tube feeds will be held at this time. STAT CT of the abdomen and pelvis is pending at this time as well and pending the results of the study. Surgical intervention will be requested. We will follow up with Urology recommendations as well. The patient is not on anticoagulants at home. We will check cardiac troponins q.8 h. and a 2D echocardiogram as well. Again, a triple-lumen or PICC line will need to be placed as the services are currently not available at [facility]. Greater than 35 minutes of critical care time spent with reviewing the patient's medical records, which were brief that were provided from [facility] and discussed with the emergency room physician. The patient remains critically ill. Cherry Dunn D.O. : Ke JOB#: [id number] CC:
[2017-03-13 05:13] LABS: MEAN CORPUSCULAR HEMOGLOBIN 33.7 PG (27.0-31.0); MEAN CORPUSCULAR VOLUME 96 FL (80-99); MEAN PLATELET VOLUME 6.2 FL (6.5-10.1); PLATELET COUNT 282 K/UL (150-450); RED BLOOD COUNT 3.15 M/UL (4.70-6.10); RED CELL DISTRIBUTION WIDTH 11.5 % (11.6-14.8)
[2017-03-13 05:23] LABS: WHITE BLOOD COUNT 25.3 K/UL (4.8-10.8)
[2017-03-13] MEDS: D5NS 1,000 ML IV SCH ×3 (05:30→20:14)
[2017-03-13 05:40] LABS: REFLEX LACTIC ACID YES OR NO YES
[2017-03-13 05:51] LABS: ALANINE AMINOTRANSFERASE 212 U/L (3-41); ALBUMIN/GLOBULIN RATIO 0.6 (1.0-2.7); ANION GAP 21 (5-15); ASPARTATE AMINO TRANSFERASE 384 U/L (5-40); CALCIUM 9.1 mg/dL (8.6-10.2); CARBON DIOXIDE 16 mEQ/L (20-30); CHLORIDE 100 mEQ/L (98-107); CREATININE 1.1 mg/dL (0.7-1.2); GLOMERULAR FILTRATION RATE > 60 mL/min (>60); HEMOLYSIS 35; PHOSPHORUS 5.1 mg/dL (2.5-4.8); POTASSIUM 4.9 mEQ/L (3.4-4.9); SODIUM 137 mEQ/L (135-145); TOTAL PROTEIN 7.6 g/dL (6.6-8.7)
[2017-03-13] MEDS: NovoLOG Insulin Flexpen SUBQ SCH ×4 (06:08→23:09)
[2017-03-13 06:11] LABS: TROPONIN I < 0.30 ng/mL (<=0.30)
[2017-03-13 07:08] LABS: BAND NEUTROPHILS % (MANUAL) 2 % (0-8); BASOPHILS % (MANUAL) 0 % (0-2); EOSINOPHILS % (MANUAL) 0 % (0-3); HYPOCHROMASIA 1+; LYMPHOCYTES % (MANUAL) 14 % (20-45); NEUTROPHILS % (MANUAL) 79 % (45-75); PLATELET ESTIMATE ADEQUATE; PLATELET MORPHOLOGY NORMAL; TOTAL CELLS COUNTED 100
[2017-03-13 08:31] LABS: ABG ALLEN TEST POSITIVE; ABG BASE EXCESS -3.7; ABG PCO2 25.1 mmHg (35.0-45.0)
[2017-03-13] MEDS: Artificial Tears 1.4% Op Soln BOTH EYES SCH ×3 (08:38→16:59)
[2017-03-13] MEDS: levETIRAcetam 500mg/NS100ml 100 ML IVPB SCH ×2 (08:38→20:23)
[2017-03-13] MEDS: Nystatin Powder 100,000 units/gm 15gm TOPIC SCH ×3 (08:38→16:59)
[2017-03-13] MEDS: Cefepime HCl 1 GM in D5W 55 ML IVPB SCH ×2 (08:39→20:22)
[2017-03-13] MEDS ORDERED: Dyna-Hex 2% Top Sol 8oz TOPIC SCH (09:00)
[2017-03-13] MEDS ORDERED: Heparin 2000 units/Ns 1000ml INJ ONE ×2 (09:00→15:00)
--- NOTE | 2017-03-13 09:47 | Diagnostic Imaging Report ---
Indication: PAIN, hematuria, mild respiratory distress Technique: Spiral acquisitions obtained through the abdomen and pelvis. No oral contrast utilized, per emergency room physician request No IV contrast utilized, per emergency room physician request.. Multiplanar reconstructions were generated. Total dose length product 904 mGycm. CTDIvol(s) 17 mGy. Dose reduction achieved using automated exposure control Comparison: 12/23/2016 contrast study Findings: The bladder is massively distended, extending well into the lower abdomen, despite the presence of a Robles catheter. Dense material is seen dependently within the bladder, appears to be to some extent layering, likely blood or mixture of blood and tumor. Even denser material is seen in the most dependent portion of the bladder. This may presumably represent calcifications, is also evident on prior CT. These appear more dispersed than on the prior study, were more conglomerated on the previous exam Air is seen within the bladder. There is no infiltration of the perivesical fat. A small amount of fluid is seen within the pelvis. There is denser material layering posteriorly within the fluid, suggesting fat fluid is bloody. There is also dense fluid, presumably blood, within the mesenteric root and paracolic gutters. There is mild fullness of the right renal collecting system. There is mild left hydronephrosis and proximal hydroureter. Lack of IV contrast limits assessment of the renal parenchyma subcentimeter low-attenuation lesion is again demonstrated in the interpolar region left kidney, too small to characterize. Previously demonstrated left calyceal calculus is visible, but less conspicuous than on the prior study. Lack of IV contrast limits assessment of the other solid organs. The liver is diffusely hypoattenuating, consistent with fatty change. The gallbladder is poorly visualized, isoattenuating with adjacent liver. Bile ducts, pancreas, spleen, adrenals are unremarkable. No mesenteric or retroperitoneal mass or adenopathy. There is a gastrostomy again demonstrated, in satisfactory position. The stomach is fluid-filled. Duodenum is unremarkable. No small bowel dilatation. The sigmoid colon is compressed by the distended bladder. There is no evidence of diverticulosis or diverticulitis. The appendix is not clearly demonstrated, but no findings to suggest acute appendicitis are evident. The lung bases demonstrate bilateral opacities which appear similar to the previous study, may represent areas of scarring, particularly as d are associated with bronchiectasis. However there is slightly less extensive than on the prior exam indicating there may have been an acute component previously. The bones demonstrate degenerative spondylosis change Impression: Severely distended bladder, despite the presence of a Robles catheter. Catheter malfunction suspected, possibly occluded by the material within the bladder. Dense material within the bladder lumen dependently suggesting presence of blood. Underlying neoplasm also suspected. There are also calcifications, evident previously, significance uncertain Small amount of dense intraperitoneal fluid, concerning for pneumoperitoneum, etiology uncertain. Mild left hydronephrosis and right renal collecting system fullness, presumably related to the bladder distention Bilateral basilar pulmonary parenchymal opacities, likely mostly on the basis of chronic fibrotic change. However, acute infiltrates or masses not excludable Gastrostomy in good position This agrees with the preliminary interpretation provided overnight by [facility] teleradiology service. The CT scanner at [facility] is accredited by the [employer] and the scans are performed using protocols designed to limit radiation exposure to as low as reasonably achievable to attain images of sufficient resolution adequate for diagnostic evaluation.
--- NOTE | 2017-03-13 11:34 | Diagnostic Imaging Report ---
Indication: SOB Technique: One view of the chest Comparison: none Findings: Right midlung opacity is stable, likely reflects pleural thickening within the minor fissure. Previously demonstrated perihilar opacities are no longer evident. There is some left perihilar atelectasis or scarring. Pleural spaces are clear Impression: No definite acute process. Findings as noted
--- NOTE | 2017-03-13 12:10 | Pulmonolgy Critical Care Note ---
Critical Care - Asmt/Plan Assessment/Plan: 1. Ventilator-dependent respiratory failure. 2. Septic shock. 3. Gross hematuria. 4. Gastrointestinal bleed 5. Bronchiectasis 6. History of deep venous thrombosis, 7. chronic obstructive pulmonary disease 8. s/p cerebrovascular accident. Urology called to see irrigate bladder cont abx, IVF not stable for transfer Infectious Disease: check cultures, continue antibiotics Gastrointestinal: hold feedings Prophylaxis: SCDs Critical Care - Objective Last 24 Hour Vital Signs Date Time Temp Pulse Resp B/P Pulse Ox O2 Delivery O2 Flow Rate FiO2 03/13/17 11:05 111 45 40 03/13/17 11:00 112 40 97/66 100 Mechanical Ventilator 40 03/13/17 10:00 99.2 115 35 94/56 100 Mechanical Ventilator 40 03/13/17 09:40 99.2 03/13/17 09:35 115 47 40 03/13/17 09:00 116 40 106/59 100 Mechanical Ventilator 40 03/13/17 08:00 40 03/13/17 08:00 99.9 112 30 89/64 100 Mechanical Ventilator 40 03/13/17 08:00 117 03/13/17 07:01 111 42 99 Mechanical Ventilator 03/13/17 07:00 114 37 96/58 100 Mechanical Ventilator 40 03/13/17 06:52 113 42 100 Mechanical Ventilator 40 03/13/17 06:47 114 41 40 03/13/17 06:00 115 45 80/55 100 Mechanical Ventilator 40 03/13/17 05:24 117 45 40 03/13/17 05:00 119 47 89/56 100 Mechanical Ventilator 40 03/13/17 04:07 Mechanical Ventilator 03/13/17 04:07 128 Mechanical Ventilator 03/13/17 04:06 128 56 40 03/13/17 04:00 98.7 122 52 97/54 100 Mechanical Ventilator 40 03/13/17 03:28 124 03/13/17 03:00 124 52 83/65 100 Mechanical Ventilator 40 03/13/17 02:01 128 53 40 03/13/17 02:00 124 54 101/69 100 Mechanical Ventilator 40 03/13/17 01:00 125 49 116/79 100 Mechanical Ventilator 40 03/13/17 00:39 118 03/13/17 00:39 40 03/13/17 00:00 99.0 120 41 104/65 100 Mechanical Ventilator 40 03/12/17 23:28 Mechanical Ventilator 03/12/17 23:27 120 Mechanical Ventilator 03/12/17 23:26 120 47 40 03/12/17 23:00 116 42 105/68 100 Mechanical Ventilator 40 03/12/17 22:32 120 03/12/17 22:29 40 03/12/17 22:15 97.7 120 40 90/69 100 Mechanical Ventilator 40 03/12/17 21:58 100.8 114 45 100/79 100 Mechanical Ventilator 15.0 40 03/12/17 21:38 106 45 40 03/12/17 21:00 114 46 100/79 100 Mechanical Ventilator 40 03/12/17 20:00 100.8 114 46 95/57 100 Mechanical Ventilator 40 03/12/17 19:05 116 42 40 03/12/17 19:04 102 38 100 Mechanical Ventilator 40 03/12/17 19:03 100 36 100 Mechanical Ventilator 40 03/12/17 19:00 109 37 128/61 100 Mechanical Ventilator 40 03/12/17 18:50 100.8 03/12/17 18:00 113 36 159/93 100 Mechanical Ventilator 40 03/12/17 17:10 99 40 40 03/12/17 17:00 96 40 102/71 100 Mechanical Ventilator 40 03/12/17 16:30 15.0 40 03/12/17 16:30 102.2 119 34 95/68 98 Mechanical Ventilator 40 03/12/17 15:46 Ambu-Bag 15.0 03/12/17 15:46 112 47 40 03/12/17 15:46 112 45 Mechanical Ventilator 40 Status: awake Condition: critical Lungs: rhonchi Heart: HR/BP stable Abdomen: soft, non-tender Extremities: no C/C/E Objective: Robles w gross blood Accucheck: 186 Critical Care - Subjective ROS Limited/Unobtainable: Yes Condition: critical FI02: 40 Vent Support Breath Rate: 18 Vent Support Mode: AC Vent Tidal Volume: 500 Sputum Amount: Scant PEEP: 5.0 PIP: 46 Tube Feeding Amount: 0 I&O: Intake and Output 03/12/17 03/13/17 19:00 07:00 Intake Total 1055 ml 1520 ml Output Total 50 ml 3550 ml Balance 1005 ml -2030 ml Intake IV Total 1055 ml 1520 ml Tube Feeding 0 ml Output Urine Total 50 ml 3550 ml # Bowel Movements 2 HAYLIE URIARTE Mar 13, 2017 12:10
--- NOTE | 2017-03-13 12:13 | Diagnostic Imaging Report ---
Indication: Shortness of breath Technique: One view of the chest Comparison: 03/12/2017 Findings: Stable linear opacity in the right perihilar region and left infrahilar region. There is decreased left perihilar atelectasis overall. Lungs and pleural spaces are otherwise clear. Heart size is normal. Tracheostomy remains. Impression: Decreased left perihilar atelectasis. Otherwise little bung remover one day
--- NOTE | 2017-03-13 13:06 | Diagnostic Imaging Report ---
Indications: Needs long-term IV access Technique: Procedure performed at bedside. Procedural timeout performed. Ultrasound confirms patent compressible left basilic vein. Total sterile technique, including sterile probe cover and sterile gel, sterile gloves, hand hygiene, hat, mask,, sterile gown, large sterile drape, and preparation with 2% chlorhexidine utilized. Local anesthesia with 1% lidocaine. Under real-time ultrasound guidance, puncture basilic vein using 21-gauge needle, passage 0.018 guidewire, exchange for 5 Croatian peel-away sheath. 5 Croatian Bard dual-lumen power PICC cut to cm. It was inserted through the peel-away sheath. Peel-away sheath and guidewire removed. Catheter fixed to the skin. Both catheter ports aspirated and flushed. Patient tolerated procedure well, without immediate complication. Followup chest x-ray obtained, documents catheter tip position at the high right atrium Impression: Successful bedside placement of left arm PICC under sonographic guidance, as described above.
[2017-03-13] MEDS ORDERED: Lidocaine 1% Plain 30 ml INJ ONE (15:00)
[2017-03-13] MEDS ORDERED: NS Irrig 1000ml ONE (16:20)
[2017-03-13] MEDS ORDERED: NS Irrig 4000ml IRRIG ONE (16:20)
[2017-03-13 16:41] LABS: REFLEX LACTIC ACID YES OR NO YES
[2017-03-13] MEDS: Dyna-Hex 2% Top Sol 8oz TOPIC SCH (20:22)
--- NOTE | 2017-03-13 21:00 | Consultation ---
DATE OF CONSULTATION: 03/13/2017 REASON FOR CONSULTATION: Gross hematuria. HISTORY OF PRESENT ILLNESS: I was asked to see the patient who was on the ventilator and transferred with a diagnosis of encephalopathy. The patient developed gross hematuria and had a Robles catheter placed yesterday with more than two liters of urine removed from the bladder with multiple clots, which was manually irrigated and currently there is no obstruction to the flow. He is currently having a 22-Kinyarwanda Robles catheter three-way. CT scan of the abdomen and pelvis was done showing distended bladder and he was hydrated over night. His hematocrit yesterday was 32.5. PAST MEDICAL HISTORY: From the records, status post G-tube, diabetes, obstructive uropathy, sacral pressure ulcer, COPD, and coronary artery disease. PAST SURGICAL HISTORY: Tracheostomy and PEG. MEDICATIONS: Pre-hospital medication reviewed and reconciled. SOCIAL HISTORY: Unavailable. FAMILY HISTORY: Unavailable. REVIEW OF SYSTEMS: Unavailable. PHYSICAL EXAMINATION: VITAL SIGNS: He is stable, pulse 95, respirations 30 on the ventilator current setting. HEENT: His oropharynx is moist. NECK: Supple. LUNGS: Decreased bilateral breath sounds. HEART: Regular rate and rhythm. ABDOMEN: Slightly distended. No suprapubic tenderness. LABORATORY AND DIAGNOSTIC DATA: Laboratory data was reviewed. His current laboratories from this morning, his white count 25.3 and hematocrit is 30.3. Creatinine is 1.1. CT of the abdomen and pelvis was done yesterday showed mild left and right hydronephrosis, most likely just fullness of the collecting system due to the bladder distention. ASSESSMENT AND PLAN: The patient has gross hematuria, most likely infectious in etiology, possible bladder mass. I irrigated his bladder today again with five liters of normal saline to clear residual clots. We will start continuous irrigation and watch the patient conservative in later dates and and hopefully hematuria will resolve. Thank you for entrusting in the care of this patient. We will follow this patient with you. William Sterling M.D. DR: RILEY JOB#: [id number] CC:
[2017-03-13] MEDS: Vancomycin 1250mg/D5W 250ml 250 ML IVPB SCH (23:06)
[2017-03-14] VITALS (26 sets, daily range): BP systolic 81–126; BP diastolic 44–71
[2017-03-14] MEDS: D5NS 1,000 ML IV SCH ×3 (00:21→17:08)
[2017-03-14] MEDS: DuoNeb 0.5-3(2.5)mg/3ml neb HHN SCH ×6 (00:45→18:55)
[2017-03-14] MEDS: NovoLOG Insulin Flexpen SUBQ SCH ×3 (05:27→17:07)
[2017-03-14] MEDS: Nystatin Powder 100,000 units/gm 15gm TOPIC SCH ×3 (09:00→17:08)
[2017-03-14] MEDS: Artificial Tears 1.4% Op Soln BOTH EYES SCH ×3 (09:00→17:07)
[2017-03-14] MEDS: Cefepime HCl 1 GM in D5W 55 ML IVPB SCH ×2 (09:00→20:20)
[2017-03-14] MEDS: levETIRAcetam 500mg/NS100ml 100 ML IVPB SCH ×2 (09:00→20:20)
--- NOTE | 2017-03-14 10:35 | Diagnostic Imaging Report ---
Indication: DYSPNEA Technique: One view of the chest Comparison: 03/13/2017 Findings: Left arm PICC again demonstrated, tip deep within the right atrium. Questionable developing right infrahilar infiltrate. Tracheostomy remains. Heart size is normal. The pleural spaces are clear. Band of atelectasis or scarring is seen in the left perihilar region Impression: Questionable developing right infrahilar infiltrate. Followup radiograph recommended Somewhat too deep position of PICC. This will be adjusted
--- NOTE | 2017-03-14 11:52 | Diagnostic Imaging Report ---
Indication: Post PICC adjustment Technique: One view of the chest Comparison: 03/13/2017 Findings: Lungs and pleural spaces are clear. Heart size is normal. Interim retraction of PICC, tip now in good position at the level right atrium. Tracheostomy remain Impression: Improved position of PICC, as described
--- NOTE | 2017-03-14 13:01 | Pulmonolgy Critical Care Note ---
Critical Care - Asmt/Plan Assessment/Plan: 1. Ventilator-dependent respiratory failure. 2. Septic shock. 3. Gross hematuria. 4. Gastrointestinal bleed 5. Bronchiectasis 6. History of deep venous thrombosis, 7. chronic obstructive pulmonary disease 8. s/p cerebrovascular accident. Urology help appreciated irrigate bladder, improving cont abx, IVF TERRA stable for transfer if requested by ins Critical Care - Objective Last 24 Hour Vital Signs Date Time Temp Pulse Resp B/P Pulse Ox O2 Delivery O2 Flow Rate FiO2 03/14/17 12:00 40 03/14/17 12:00 98 03/14/17 12:00 97.6 99 24 104/44 100 Mechanical Ventilator 40 03/14/17 11:01 95 28 108/68 100 Mechanical Ventilator 40 03/14/17 10:54 103 36 100 Mechanical Ventilator 40 03/14/17 10:52 98 25 40 03/14/17 10:45 86 18 100 Mechanical Ventilator 40 03/14/17 10:01 96 25 102/56 100 Mechanical Ventilator 40 03/14/17 09:04 101 38 40 03/14/17 09:00 90 26 99/71 100 Mechanical Ventilator 40 03/14/17 08:00 98.2 93 30 91/57 100 Mechanical Ventilator 40 03/14/17 08:00 92 03/14/17 08:00 40 03/14/17 07:32 88 25 100 Mechanical Ventilator 40 03/14/17 07:28 87 20 40 03/14/17 07:20 87 28 100 Mechanical Ventilator 40 03/14/17 07:00 88 26 102/64 100 Mechanical Ventilator 40 03/14/17 06:00 98 28 105/62 99 Mechanical Ventilator 40 03/14/17 06:00 98 28 105/62 99 Mechanical Ventilator 40 03/14/17 05:00 92 30 109/68 100 Mechanical Ventilator 40 03/14/17 05:00 92 30 109/68 100 Mechanical Ventilator 40 03/14/17 05:00 93 29 40 03/14/17 04:00 96 03/14/17 04:00 40 03/14/17 04:00 98.3 110 29 105/61 99 Mechanical Ventilator 40 03/14/17 03:45 104 37 98 Mechanical Ventilator 40 03/14/17 03:30 91 39 40 03/14/17 03:30 100 43 96 Mechanical Ventilator 40 03/14/17 03:00 107 32 92/71 100 Mechanical Ventilator 40 03/14/17 02:00 108 42 81/54 100 Mechanical Ventilator 40 03/14/17 01:00 109 38 98/62 100 Mechanical Ventilator 40 03/14/17 00:53 100 18 40 03/14/17 00:00 98.1 103 27 93/58 100 Mechanical Ventilator 40 03/14/17 00:00 105 03/14/17 00:00 40 03/13/17 23:45 108 34 100 Mechanical Ventilator 40 03/13/17 23:30 102 28 40 03/13/17 23:30 98 37 100 Mechanical Ventilator 40 03/13/17 23:00 108 32 136/88 100 Mechanical Ventilator 40 03/13/17 22:00 109 32 90/72 100 Mechanical Ventilator 40 03/13/17 21:30 110 27 40 03/13/17 21:00 110 32 83/68 100 Mechanical Ventilator 40 03/13/17 20:00 40 03/13/17 20:00 108 03/13/17 20:00 97.2 108 31 84/62 100 Mechanical Ventilator 40 03/13/17 19:40 114 30 100 Mechanical Ventilator 03/13/17 19:30 108 29 40 03/13/17 19:30 108 30 100 Mechanical Ventilator 03/13/17 19:00 109 34 83/56 100 Mechanical Ventilator 40 03/13/17 18:00 112 34 83/61 100 Mechanical Ventilator 40 03/13/17 17:00 110 38 91/64 100 Mechanical Ventilator 40 03/13/17 16:50 107 46 40 03/13/17 16:00 40 03/13/17 16:00 98.9 112 30 100/75 97 Mechanical Ventilator 40 03/13/17 16:00 117 03/13/17 15:00 110 30 103/65 97 Mechanical Ventilator 40 03/13/17 14:59 Mechanical Ventilator 03/13/17 14:58 115 48 100 Mechanical Ventilator 03/13/17 14:57 127 41 40 03/13/17 14:00 112 32 94/55 97 Mechanical Ventilator 40 03/13/17 13:00 109 30 92/59 100 Mechanical Ventilator 40 Status: somnolent HEENT: atraumatic Lungs: clear Heart: HR/BP stable Abdomen: soft, non-tender Objective: Robles w less blood Micro: Microbiology Date/Time Source Procedure Growth Status 03/12/17 16:15 Blood Blood Culture - Preliminary NO GROWTH AFTER 24 HOURS Resulted 03/12/17 16:10 Blood Blood Culture - Preliminary NO GROWTH AFTER 24 HOURS Resulted 03/12/17 19:00 Nasal Nares MRSA Culture - Final NO METHICILLIN RESISTANT STAPH AUREUS... Complete Accucheck: 109 Critical Care - Subjective ROS Limited/Unobtainable: Yes Condition: improving EKG Rhythm: Sinus Rhythm FI02: 40 Vent Support Breath Rate: 18 Vent Support Mode: AC Vent Tidal Volume: 500 Sputum Amount: Moderate PEEP: 5.0 PIP: 24 Tube Feeding Amount: 0 I&O: Intake and Output 03/13/17 03/14/17 19:00 07:00 Intake Total 5810 ml 1593 ml Output Total 4910 ml 500 ml Balance 900 ml 1093 ml Intake IV Total 1610 ml 1593 ml Other 4200 ml Output Urine Total 310 ml 500 ml Gastric Drainage Total 250 ml Other 4350 ml HAYLIE URIARTE Mar 14, 2017 13:01
[2017-03-14 14:22] LABS: ANION GAP 10 (5-15); CALCIUM 7.7 mg/dL (8.6-10.2); CARBON DIOXIDE 23 mEQ/L (20-30); CHLORIDE 114 mEQ/L (98-107); CREATININE 0.5 mg/dL (0.7-1.2); GLOMERULAR FILTRATION RATE > 60 mL/min (>60); HEMOLYSIS 0; POTASSIUM 3.4 mEQ/L (3.4-4.9); SODIUM 147 mEQ/L (135-145)
[2017-03-14] MEDS ORDERED: NS 275ml ONE ×2 (15:18→15:23)
[2017-03-14] MEDS ORDERED: Tubing IV Secondary IV ONE (15:18)
[2017-03-14] MEDS ORDERED: D5NS 1000ml IV ONE (15:23)
[2017-03-14] MEDS ORDERED: NS Irrig 4000ml IRRIG ONE (15:23)
[2017-03-14] MEDS: Dyna-Hex 2% Top Sol 8oz TOPIC SCH (20:19)
--- NOTE | 2017-03-14 21:01 | Wound Care Consultation ---
Wound Assessment Wound Assessment #1: Wound Number: #1 Wound Present on Admission: Yes New Wound: No Status Change of Wound: No Wound Location Body Site Modif: mid Wound Location Body Site: sacral Wound Type: pressure ulcer Zuleika Test: Does not Zuleika Pressure Ulcer Stage: III Wound Thickness: Full Thickness Wound Length: 0.5 Wound Width: 0.5 Wound Depth: 0.2 Percent of Wound [place]/Red: 100 Wound Drainage Description: Serosanguineous Wound Drainage Amount: Scant Wound Drainage Odor: None/Absent Tissue Surrounding Wound: extensive full thickness scar tissue Wound General Appearance: Reddened Wound Assessment #2: Wound Number: #2 Wound Present on Admission: Yes New Wound: No Status Change of Wound: No Wound Location Body Site: perineal area Wound Type: chemical burn - with erosion Zuleika Test: Does not [place]ule[place] Percent of Wound [place]/Red: 100 Wound Drainage Description: Serosanguineous Wound Drainage Amount: Scant Wound Drainage Odor: None/Absent Tissue Surrounding Wound: Erythemic Wound General Appearance: Reddened Wound Assessment #3: Wound Number: #3 Wound Present on Admission: Yes New Wound: No Status Change of Wound: No Wound Location Body Site Modif: mid, lower Wound Location Body Site: abdomen Zuleika Test: Does not Zuleika Blisters: Denuded Blister Wound Thickness: Partial Thickness Wound Length: 0.5 Wound Width: 1.5 Wound Depth: less than 0.1 Percent of Wound [place]/Red: 100 Wound Drainage Description: Serosanguineous Wound Drainage Amount: Scant Wound Drainage Odor: None/Absent Tissue Surrounding Wound: Intact Wound General Appearance: Reddened Wound Comment #1 Sacral stage III pressure ulcer with extensive full thickness scar tissue on surrounding area #2 Chemical burn on perineal area #3 Abdominal area with denuded skin Recommendation -Local wound care per protocol -Turn and reposition -Keep clean and dry -Low air loss mattress -Offload both heels -Heel protector on both heels -Optimize nutrition -Assess and f/u accordingly for any changes STEPHANIE WASHBURN RN Mar 14, 2017 21:01
[2017-03-14] MEDS: Vancomycin 1250mg/D5W 250ml 250 ML IVPB SCH (23:30)
[2017-03-15] VITALS (12 sets, daily range): BP systolic 105–130; BP diastolic 51–71
[2017-03-15] MEDS: DuoNeb 0.5-3(2.5)mg/3ml neb HHN SCH ×4 (00:31→11:17)
[2017-03-15 05:33] LABS: ANION GAP 9 (5-15); CALCIUM 8.2 mg/dL (8.6-10.2); CARBON DIOXIDE 24 mEQ/L (20-30); CHLORIDE 113 mEQ/L (98-107); CREATININE 0.5 mg/dL (0.7-1.2); GLOMERULAR FILTRATION RATE > 60 mL/min (>60); HEMOLYSIS 0; POTASSIUM 3.4 mEQ/L (3.4-4.9); SODIUM 146 mEQ/L (135-145)
[2017-03-15] MEDS: D5NS 1,000 ML IV SCH (05:46)
[2017-03-15] MEDS: NovoLOG Insulin Flexpen SUBQ SCH ×2 (05:47)
[2017-03-15 05:52] LABS: MEAN CORPUSCULAR HGB CONC 33.1 G/DL (32.0-36.0); MEAN CORPUSCULAR VOLUME 100 FL (80-99); MEAN PLATELET VOLUME 5.9 FL (6.5-10.1); PLATELET COUNT 164 K/UL (150-450); RED BLOOD COUNT 1.95 M/UL (4.70-6.10); RED CELL DISTRIBUTION WIDTH 12.3 % (11.6-14.8); WHITE BLOOD COUNT 6.5 K/UL (4.8-10.8)
[2017-03-15] MEDS: Cefepime HCl 1 GM in D5W 55 ML IVPB SCH (08:43)
[2017-03-15] MEDS: levETIRAcetam 500mg/NS100ml 100 ML IVPB SCH (08:44)
[2017-03-15] MEDS: Artificial Tears 1.4% Op Soln BOTH EYES SCH (08:44)
[2017-03-15] MEDS: Nystatin Powder 100,000 units/gm 15gm TOPIC SCH (08:44)
[2017-03-15] MEDS: Dyna-Hex 2% Top Sol 8oz TOPIC SCH (08:45)
--- NOTE | 2017-03-15 09:12 | Pulmonology Progress Note ---
Assessment/Plan Assessment/Plan 1. Ventilator-dependent respiratory failure. 2. Septic shock. 3. Gross hematuria. 4. Gastrointestinal bleed 5. Bronchiectasis 6. History of deep venous thrombosis, 7. chronic obstructive pulmonary disease 8. s/p cerebrovascular accident. Urology help appreciated irrigate bladder, improving cont abx, IVF Transfuse prn TERRA stable for transfer Subjective Interval Events: being discharged to [facility] Constitutional: Reports: no symptoms HEENT: Repors: no symptoms Respiratory: Reports: no symptoms Cardiovascular: Reports: no symptoms Gastrointestinal/Abdominal: Reports: no symptoms Allergies: Coded Allergies: No Known Allergies (Unverified , 11/23/14) UNABLE TO ASSESS (Unverified , 03/12/17) Objective Last 24 Hour Vital Signs Date Time Temp Pulse Resp B/P Pulse Ox O2 Delivery O2 Flow Rate FiO2 03/15/17 08:00 97.8 98 34 119/62 100 Mechanical Ventilator 40 03/15/17 08:00 40 03/15/17 07:55 100 36 100 Mechanical Ventilator 40 03/15/17 07:36 105 40 100 Mechanical Ventilator 40 03/15/17 07:36 40 03/15/17 07:29 98 40 40 03/15/17 07:00 86 21 113/62 100 Mechanical Ventilator 40 03/15/17 06:00 101 21 113/63 100 Mechanical Ventilator 40 03/15/17 05:28 111 40 40 03/15/17 05:00 105 21 127/63 100 Mechanical Ventilator 40 03/15/17 04:00 40 03/15/17 04:00 98 03/15/17 04:00 97.9 98 22 116/59 100 Mechanical Ventilator 40 03/15/17 03:36 94 20 100 Mechanical Ventilator 40 03/15/17 03:23 97 35 100 Mechanical Ventilator 40 03/15/17 03:23 40 03/15/17 03:21 97 35 40 03/15/17 03:00 109 21 114/57 100 Mechanical Ventilator 40 03/15/17 02:00 109 21 114/57 100 Mechanical Ventilator 40 03/15/17 01:00 105 21 108/69 100 Mechanical Ventilator 40 03/15/17 00:46 91 22 40 03/15/17 00:00 91 03/15/17 00:00 98.0 94 21 105/51 100 Mechanical Ventilator 40 8/16/17 00:00 40 8/15/17 23:40 88 23 100 Mechanical Ventilator 40 8/15/17 23:30 88 23 100 Mechanical Ventilator 40 8/15/17 23:30 40 8/15/17 23:25 88 23 40 8/15/17 23:00 91 23 103/61 100 Mechanical Ventilator 40 8/15/17 22:00 98 20 126/71 100 Mechanical Ventilator 40 8/15/17 21:25 120 32 40 8/15/17 21:00 104 24 126/71 100 Mechanical Ventilator 40 8/15/17 20:00 101 8/15/17 20:00 40 8/15/17 20:00 98.0 102 23 108/57 100 Mechanical Ventilator 40 8/15/17 19:05 96 26 100 Mechanical Ventilator 40 8/15/17 19:00 90 18 108/57 100 Mechanical Ventilator 40 8/15/17 18:55 40 8/15/17 18:54 97 27 100 Mechanical Ventilator 40 8/15/17 18:53 97 27 40 8/15/17 18:00 100 22 104/58 100 Mechanical Ventilator 40 815/17 17:12 101 21 40 8/15/17 17:00 103 24 97/60 100 Mechanical Ventilator 40 8/15/17 16:00 40 8/15/17 16:00 102 8/15/17 16:00 98.0 102 23 94/62 100 Mechanical Ventilator 40 8/15/17 15:26 94 18 100 Mechanical Ventilator 40 8/15/17 15:23 97 18 40 8/15/17 15:10 94 18 100 Mechanical Ventilator 40 8/15/17 15:00 95 27 100/60 100 Mechanical Ventilator 40 8/15/17 14:01 93 20 109/60 100 Mechanical Ventilator 40 8/15/17 13:28 111 35 40 8/15/17 13:00 97 25 99/63 100 Mechanical Ventilator 40 8/15/17 12:00 40 8/15/17 12:00 98 8/15/17 12:00 97.6 99 24 104/44 100 Mechanical Ventilator 40 8/15/17 11:01 95 28 108/68 100 Mechanical Ventilator 40 8/15/17 10:54 103 36 100 Mechanical Ventilator 40 8/15/17 10:52 98 25 40 8/15/17 10:45 86 18 100 Mechanical Ventilator 40 8/15/17 10:01 96 25 102/56 100 Mechanical Ventilator 40 Intake and Output 03/14/17 03/15/17 19:00 07:00 Intake Total 1530 ml 1405.000 ml Output Total 6450 ml 3750 ml Balance -4920 ml -2345.000 ml IV Total 1530 ml 1405.000 ml Output Urine Total 3450 ml 2750 ml Other 3000 ml 1000 ml General Appearance: no acute distress HEENT: normocephalic Respiratory/Chest: chest wall non-tender, lungs clear Cardiovascular: normal peripheral pulses, normal rate Abdomen: normal bowel sounds, soft, non tender Microbiology Date/Time Source Procedure Growth Status 03/12/17 16:15 Blood Blood Culture - Preliminary NO GROWTH AFTER 48 HOURS Resulted 03/12/17 16:10 Blood Blood Culture - Preliminary NO GROWTH AFTER 48 HOURS Resulted 03/12/17 19:00 Nasal Nares MRSA Culture - Final NO METHICILLIN RESISTANT STAPH AUREUS... Complete Laboratory Tests 03/14/17 13:35: Sodium Level 147H, Potassium Level 3.4, Chloride Level 114H, Carbon Dioxide Level 23, Anion Gap 10, Blood Urea Nitrogen 25H, Creatinine 0.5#L, Estimat Glomerular Filtration Rate > 60, Glucose Level 426#H, Calcium Level 7.7L 03/15/17 04:30: Sodium Level 146H, Potassium Level 3.4, Chloride Level 113H, Carbon Dioxide Level 24, Anion Gap 9, Blood Urea Nitrogen 19, Creatinine 0.5L, Estimat Glomerular Filtration Rate > 60, Glucose Level 122#H, Calcium Level 8.2L, White Blood Count 6.5, Red Blood Count 1.95L, Hemoglobin 6.4*L, Hematocrit 19.5L, Mean Corpuscular Volume 100H, Mean Corpuscular Hemoglobin 33.0H, Mean Corpuscular Hemoglobin Concent 33.1, Red Cell Distribution Width 12.3, Platelet Count 164, Mean Platelet Volume 5.9L, Neutrophils (%) (Auto) , Lymphocytes (%) ( Auto) , Monocytes (%) (Auto) , Eosinophils (%) (Auto) , Basophils (%) (Auto) , Neutrophils % (Manual) [Pending], Lymphocytes % (Manual) [Pending], Platelet Estimate [Pending], Platelet Morphology [Pending] Current Medications Medications (Trade) Dose Ordered Sig/Latoya Route PRN Reason Start Time Stop Time Status Last Admin Dose Admin Acetaminophen (Tylenol) 650 mg Q4H PRN ORAL Fever 03/12/17 20:00 04/11/17 19:59 03/13/17 08:43 Albuterol/ Ipratropium 3 ml 3 ml Q4HRT HHN 03/12/17 23:00 03/17/17 22:59 03/15/17 07:52 Artificial Tears (Akwa-Tears) 1 drop THREE TIMES A DAY BOTH EYES 03/13/17 09:00 04/12/17 08:59 03/15/17 08:44 Cefepime HCl/ Dextrose (Maxipime/D5W) 55 ml @ 110 mls/hr EVERY 12 HOURS IVPB 03/13/17 09:00 03/20/17 08:59 03/15/17 08:43 Chlorhexidine Gluconate (Rosa-Hex 2%) 1 applic DAILY TOPIC 03/13/17 21:00 04/12/17 20:59 03/14/17 20:19 Dextrose STAT PRN IV Hypoglycemia 03/12/17 20:00 04/11/17 19:59 Dextrose/Sodium Chloride (D5ns) 1,000 ml @ 125 mls/hr Q8H IV 03/12/17 21:30 04/11/17 21:29 03/15/17 05:46 Insulin Aspart Q6HR SUBQ 03/12/17 22:00 04/11/17 21:59 03/15/17 05:47 Levetiracetam (Keppra 500mg Premix) 100 ml @ 400 mls/hr Q12HR IVPB 03/12/17 23:00 04/11/17 22:59 03/15/17 08:44 Lorazepam (Ativan 2mg/ml 1ml) 0.5 mg Q4H PRN IV For Anxiety 03/13/17 02:15 03/20/17 02:14 03/13/17 17:01 Metoclopramide HCl (Reglan) 10 mg Q6H PRN IVP Nausea & Vomiting 03/12/17 20:00 04/11/17 19:59 Nystatin (Nystop Powder) 1 applic THREE TIMES A DAY TOPIC 03/13/17 09:00 04/12/17 08:59 03/15/17 08:44 Ondansetron HCl (Zofran) 4 mg Q6H PRN IVP Nausea & Vomiting 03/12/17 20:00 04/11/17 19:59 Vancomycin HCl (Vanco rx to dose) 1 ea DAILY PRN MISC PRN RX PROTOCOL 03/12/17 21:45 04/11/17 21:44 Vancomycin HCl/ Dextrose (Vancomycin 1250mg/D5W 250ml) 250 ml @ 166.667 mls/hr Q24H IVPB 03/13/17 23:00 03/18/17 22:59 03/14/17 23:30 Ashish Esqueda MD Mar 15, 2017 09:12
[2017-03-15 09:57] LABS: BAND NEUTROPHILS % (MANUAL) 0 % (0-8); BASOPHILS % (MANUAL) 0 % (0-2); EOSINOPHILS % (MANUAL) 4 % (0-3); LYMPHOCYTES % (MANUAL) 21 % (20-45); NEUTROPHILS % (MANUAL) 72 % (45-75); PLATELET ESTIMATE ADEQUATE; PLATELET MORPHOLOGY NORMAL; TOTAL CELLS COUNTED 100
[2017-03-15] MEDS ORDERED: D5NS 1000ml IV ONE ×2 (10:03→12:11)
[2017-03-15] MEDS ORDERED: Tubing IV Secondary IV ONE (12:11)
[2017-03-15] MEDS ORDERED: Tubing Blood Filter IV ONE (12:11)
[2017-03-15] MEDS ORDERED: NS Irrig 4000ml IRRIG ONE (12:11)
[2017-03-15] MEDS ORDERED: D5 1/2NS 1000ml IV ONE (12:11)
[2017-03-15] MEDS ORDERED: NS 275ml ONE ×2 (12:11)
--- NOTE | 2017-03-16 12:40 | Cardiology Report ---
APPROVED REPORT EKG Measurement Heart [id number] Sinus tachycardia Biatrial enlargement Pulmonary disease pattern Left anterior fascicular block Nonspecific ST abnormality Abnormal ECG
--- NOTE | 2017-03-16 14:37 | Cardiology Report ---
APPROVED REPORT EKG Measurement Heart [id number] Sinus tachycardia Left anterior fascicular block Nonspecific ST abnormality Abnormal ECG
--- NOTE | 2017-03-16 15:58 | Discharge Summary ---
Discharge Summary Hospital Course Date of Admission Mar 12, 2017 at 20:49 Date of Discharge Mar 15, 2017 at 12:12 Admitting Diagnosis ALTERTED MENTAL STATUS HPI Sergei Felipe is a 66 year old male who was admitted on Mar 12, 2017 at 20:49 for Altered Mental Status Hospital Course [id number] Discharge Discharge Disposition Patient was discharged to Discharge Diagnoses: Mary Kay Dowling NP Mar 16, 2017 15:58
--- NOTE | 2017-03-17 02:46 | Discharge Summary 2 SIG ---
DATE OF ADMISSION: 03/12/2017 DATE OF DISCHARGE: 03/15/2017 BRIEF HOSPITAL COURSE: The patient is a 66-year-old male from longterm facility was taken to ED for transfer diagnosis of encephalopathy. On arrival to ED, he was noted to have hematuria and bright red blood per rectum with distended abdomen and had recurrent episodes of vomiting. The G-tube was placed to suction and Robles was changed to a 3 way catheter. He has chronic respiratory failure and is on trach and vent. Attempt to place the central line was unsuccessful. The patient then underwent intraosseous on the right tibia. Laboratories showed elevated WBC at 22 and a CAT scan of the abdomen showed severely distended bladder despite Robles catheter. The catheter malfunction suspected and dense material within the bladder lumen was seen suggesting presence of blood. There was also concern for pneumoperitoneum. Urology was consulted who recommended non-irrigation of Robles and bladder irrigation was done. The patient was unstable for transfer and was admitted to ICU for septic shock, gross hematuria and gastrointestinal bleed. He was given IV cefepime, vancomycin, and Zosyn. Hemoglobin dropped to 6.4 and was given one unit packed RBC blood transfusion. He came in with sacral stage III pressure ulcer and chemical rinaldi on the perineal area. Wound care was rendered. He was eventually transferred to [facility]. FINAL DIAGNOSES: 1. Ventilator-dependent respiratory failure. 2. Septic shock. 3. Gross hematuria. 4. Gastrointestinal bleed. 5. Acute anemia requiring blood transfusion. 6. Bronchiectasis. 7. History of deep vein thrombosis. 8. Chronic obstructive pulmonary disease. 9. Old cerebrovascular accident. 10. Stage III sacral pressure ulcer and chemical burn on perineal area, present on admission. DISPOSITION: The patient was transferred to contracted facility [facility]. Ashish Esqueda M.D. I have been assigned to dictate discharge summary on this account and I was not involved in the patient's management. Mary Kay Dowling N.P. DR: DUKE JOB#: [id number] CC:
== END 2017-03-15 12:12 | disposition short-term general hospital (02) | DRG 720 ==
LOC: EDBD 16:01 → EMR 16:11 → EDBEDREQ 16:17 → EDBEDREQSVC 18:00 → EDBEDREQ 18:21 → EDBEDREQSVC 19:23 → EDBEDREQ 19:24 → ICU 20:49
PROC: 5A1945Z Respiratory Ventilation, 24-96 Consecutive Hours (ICD-10-PCS; principal; 2017-03-12)
PROC: 02H633Z Insertion of Infusion Device into Right Atrium, Percutaneous Approach (ICD-10-PCS; 2017-03-13)
PROC: 30233N1 Transfusion of Nonautologous Red Blood Cells into Peripheral Vein, Percutaneous Approach (ICD-10-PCS; 2017-03-15)
DX: A41.9 Sepsis, unspecified organism (principal); R65.21 Severe sepsis with septic shock; Z99.11 Dependence on respirator [ventilator] status; G93.49 Other encephalopathy; J96.10 Chronic respiratory failure, unspecified whether with hypoxia or hypercapnia; L89.153 Pressure ulcer of sacral region, stage 3; Z43.0 Encounter for attention to tracheostomy; K92.2 Gastrointestinal hemorrhage, unspecified; R31.0 Gross hematuria; Z86.73 Personal history of transient ischemic attack (TIA), and cerebral infarction without residual deficits; Z86.718 Personal history of other venous thrombosis and embolism; Z79.01 Long term (current) use of anticoagulants; J47.9 Bronchiectasis, uncomplicated; Z43.1 Encounter for attention to gastrostomy; E11.9 Type 2 diabetes mellitus without complications; J44.9 Chronic obstructive pulmonary disease, unspecified; Z86.711 Personal history of pulmonary embolism; I25.10 Atherosclerotic heart disease of native coronary artery without angina pectoris; I10 Essential (primary) hypertension; D62 Acute posthemorrhagic anemia
CPT/HCPCS: 36415; 36569; 36600; 51702; 71010; 74176; 76937; 80048; 80053; 81003; 82550; 82553; 82803; 82962; 83036; 83605; 83690; 83735; 83880; 84100; 84484; 85007; 85025; 85610; 86850; 86900; 86901; 86920; 87040; 87081; 93005; 93970; 94002; 94003; 94640; 94664; 96360; 96361; 96375; J1815; J7620

== ENCOUNTER 2017-09-05 23:12 | Inpatient (IN) | payer OTHER ==
[~2017-09-05] VITALS: Ht 177.8 cm; Wt 61.7 kg
[~2017-09-05 23:12] MED LIST changes: -Cefepime HCl 1 GM in NS 55 ML IV STA; +DUONEB 0.5-3(2.53 ML HHN; +VITAMIN C GT; +dulcolax supp RC
[2017-09-06] VITALS (7 sets, daily range): BP systolic 91–151; BP diastolic 60–90
[2017-09-06 00:20] LABS: BILIRUBIN, URINE NEGATIVE (NEGATIVE); COLOR,URINE RED; GLUCOSE, URINE (UA) NEGATIVE (NEGATIVE); KETONES,URINE 1+ (NEGATIVE); NITRITE,URINE NEGATIVE (NEGATIVE); PH,URINE 8 (4.5-8.0); PROTEIN,URINE 4+ (NEGATIVE); UROBILINOGEN,URINE NORMAL MG/DL (0.0-1.0)
[2017-09-06 00:26] LABS: BASOPHILS % (AUTO) 0.8 % (0.0-2.0); HEMATOCRIT 41.5 % (42.0-52.0); HEMOGLOBIN 15.2 G/DL (14.2-18.0); LYMPHOCYTES % (AUTO) 10.8 % (20.0-45.0); MEAN CORPUSCULAR VOLUME 93 FL (80-99); MONOCYTES % (AUTO) 4.3 % (1.0-10.0); PLATELET COUNT 244 K/UL (150-450); RED BLOOD COUNT 4.45 M/UL (4.70-6.10); RED CELL DISTRIBUTION WIDTH 10.6 % (11.6-14.8); WHITE BLOOD COUNT 11.4 K/UL (4.8-10.8)
[2017-09-06 00:29] LABS: ANION GAP 9 mmol/L (5-15); BLOOD UREA NITROGEN 15 mg/dL (7-18); CALCIUM 9.9 MG/DL (8.5-10.1); CARBON DIOXIDE 27 MMOL/L (21-32); CHLORIDE 98 MMOL/L (98-107); CREATININE 0.5 MG/DL (0.55-1.30); POTASSIUM 4.8 MMOL/L (3.5-5.1); SODIUM 134 MMOL/L (136-145)
[2017-09-06 00:34] LABS: APPEARANCE,URINE CLOUDY; LEUKOCYTE ESTERASE ,URINE 2+ (NEGATIVE)
[2017-09-06 00:43] LABS: ALANINE AMINOTRANSFERASE 84 U/L (12-78); ALBUMIN 3.5 G/DL (3.4-5.0); ALBUMIN/GLOBULIN RATIO 0.6 (1.0-2.7); ALKALINE PHOSPHATASE 130 U/L (46-116); ASPARTATE AMINO TRANSFERASE 90 U/L (15-37); BILIRUBIN,TOTAL 0.9 MG/DL (0.2-1.0); CKMB 2.6 NG/ML (0.0-3.6); CREATINE KINASE 178 U/L (26-308)
[2017-09-06] MEDS ORDERED: cefTRIAXone 1 GM in D5W 55 ML IVPB ONE (01:00)
[2017-09-06] MEDS ORDERED: METOPROLOL TART25 MG ORAL (01:29)
[2017-09-06] MEDS ORDERED: XARELTO10 MG ORAL (01:29)
[2017-09-06] MEDS ORDERED: MULTIVITAMINS1 EAC2 ORAL (01:29)
--- NOTE | 2017-09-06 01:40 | Emergency Room Report ---
History of Present Illness General Chief Complaint: Male Urogenital Problems Source: Patient Present Illness HPI 67-year-old male presents to ED for evaluation of hematuria. Noted today by nursing staff at his nursing home facility. Patient has prior history of hematuria. His trach/ventilator dependent. Has G-tube. Upon arrival patient showing no signs of distress. Unable to provide any additional history at this time. Afebrile. No other aggravating relieving factors. No other associated symptoms Allergies: Coded Allergies: No Known Allergies (Unverified , 11/23/14) UNABLE TO ASSESS (Unverified , 03/12/17) Patient History Past Medical History: DM, HTN, COPD, GERD, seizures, other - trach/vent Past Surgical History: none Pertinent Family History: none Social History: Denies: smoking, alcohol use, drug use Immunizations: UTD Reviewed Nursing Documentation: PMH: Agreed, PSxH: Agreed Nursing Documentation-PMH Hx Cardiac Problems: Yes - sepsis Hx Hypertension: Yes Hx Pacemaker: No Hx Asthma: No Hx COPD: Yes - Acute respiratory failure, pneumonia Hx Diabetes: Yes - mcfp use if insulin Hx Cancer: No Hx Gastrointestinal Problems: Yes - hematuria, obstructive and reflux uropahty Hx Neurological Problems: Yes Hx Cerebrovascular Accident: Yes Hx Seizures: Yes - epilepsy Hx Paralysis: Yes Hx Concentration Difficulty: Yes Hx Speech Problem: Yes Hx Dysphasia: Yes Hx Weakness: Yes Review of Systems All Other Systems: limited Physical Exam Vital Signs Date Time Temp Pulse Resp B/P (MAP) Pulse Ox O2 Delivery O2 Flow Rate FiO2 09/05/17 23:13 97.3 115 18 158/97 100 Room Air 09/05/17 23:45 60.0 40 Sp02 EP Interpretation: reviewed, normal General Appearance: no apparent distress, other - nonverbal Head: normocephalic Eyes: bilateral eye normal inspection, bilateral eye PERRL ENT: normal ENT inspection Neck: tracheotomy Respiratory: chest non-tender, lungs clear, normal breath sounds, speaking full sentences Cardiovascular #1: regular rate, rhythm, no edema Gastrointestinal: normal bowel sounds, non tender, soft, non-distended, no guarding, no rebound, other - Gtube Rectal: deferred Genitourinary: no CVA tenderness Musculoskeletal: normal inspection Neurologic: other - nonverbal Psychiatric: other - nonverbal Skin: normal inspection Lymphatic: normal inspection Medical Decision Making Diagnostic Impression: Primary Impression: Hematuria Qualified Codes: R31.9 - Hematuria, unspecified Additional Impression: UTI (urinary tract infection) Qualified Codes: N39.0 - Urinary tract infection, site not specified; R31.9 - Hematuria, unspecified ER Course Hospital Course 67-year-old male presents to ED with hematuria Differential diagnoses include: sepsis, UTI, blood clots Clinical course Patient placed on stretcher. On gambling monitor with tachycardia. After initial history and physical, I ordered labs, IV fluids, EKG, chest x-ray, blood cultures, UA. Labs - electrolytes ok, minimal leukocytosis, troponins negative, UA grossly positive for UTI, + blood, lactate ok EKG - sinus tachycardia CXR - possible RLL infiltrate when compared to prior CXR Robles irrigated with saline and flushed Abx given. Case discussed with Dr Call and they agreed to admit patient to their service for further care and support I feel this is a highly complex case requiring extensive working including EKG/ Rhythm strip, Xray/CT/US, Blood/urine lab work, repeat exams while in ED, and administration of strong opiates/narcotics for pain control, admission to hospital or close patient follow up. Diagnosis - hematuria, UTI Patient admitted to [facility] in serious condition Labs Test 09/05/17 23:35 09/05/17 23:47 White Blood Count 11.4 K/UL (4.8-10.8) Red Blood Count 4.45 M/UL (4.70-6.10) Hemoglobin 15.2 G/DL (14.2-18.0) Hematocrit 41.5 % (42.0-52.0) Mean Corpuscular Volume 93 FL (80-99) Mean Corpuscular Hemoglobin 34.2 PG (27.0-31.0) Mean Corpuscular Hemoglobin Concent 36.7 G/DL (32.0-36.0) Red Cell Distribution Width 10.6 % (11.6-14.8) Platelet Count 244 K/UL (150-450) Mean Platelet Volume 7.1 FL (6.5-10.1) Neutrophils (%) (Auto) 84.0 % (45.0-75.0) Lymphocytes (%) (Auto) 10.8 % (20.0-45.0) Monocytes (%) (Auto) 4.3 % (1.0-10.0) Eosinophils (%) (Auto) 0.0 % (0.0-3.0) Basophils (%) (Auto) 0.8 % (0.0-2.0) Sodium Level 134 MMOL/L (136-145) Potassium Level 4.8 MMOL/L (3.5-5.1) Chloride Level 98 MMOL/L (98-107) Carbon Dioxide Level 27 MMOL/L (21-32) Anion Gap 9 mmol/L (5-15) Blood Urea Nitrogen 15 mg/dL (7-18) Creatinine 0.5 MG/DL (0.55-1.30) Estimat Glomerular Filtration Rate > 60 mL/min (>60) Glucose Level 131 MG/DL (74-106) Lactic Acid Level 1.40 mmol/L (0.66-2.22) Calcium Level 9.9 MG/DL (8.5-10.1) Total Bilirubin 0.9 MG/DL (0.2-1.0) Aspartate Amino Transf (AST/SGOT) 90 U/L (15-37) Alanine Aminotransferase (ALT/SGPT) 84 U/L (12-78) Alkaline Phosphatase 130 U/L (46-116) Total Creatine Kinase 178 U/L (26-308) Creatine Kinase MB 2.6 NG/ML (0.0-3.6) Creatine Kinase MB Relative Index 1.4 Troponin I 0.035 ng/mL (0.000-0.056) Pro-B-Type Natriuretic Peptide 1410 pg/mL (0-125) Total Protein 9.8 G/DL (6.4-8.2) Albumin 3.5 G/DL (3.4-5.0) Globulin 6.3 g/dL Albumin/Globulin Ratio 0.6 (1.0-2.7) Urine Color Red Urine Appearance Cloudy Urine pH 8 (4.5-8.0) Urine Specific [place] 1.010 (1.005-1.035) Urine Protein 4+ (NEGATIVE) Urine Glucose (UA) Negative (NEGATIVE) Urine Ketones 1+ (NEGATIVE) Urine Occult Blood 5+ (NEGATIVE) Urine Nitrite Negative (NEGATIVE) Urine Bilirubin Negative (NEGATIVE) Urine Urobilinogen Normal MG/DL (0.0-1.0) Urine Leukocyte Esterase 2+ (NEGATIVE) Urine RBC Tntc /HPF (0 - 0) Urine WBC 20-30 /HPF (0 - 0) Urine Squamous Epithelial Cells None /LPF (NONE/OCC) Urine Triple Phosphate Crystals Few /LPF (NONE) Urine Bacteria Few /HPF (NONE) EKG Diagnostic Results Rate: tachycardiac Rhythm: NSR ST Segments: no acute changes ASA given to the pt in ED: No Rhythm Strip Diag. Results EP Interpretation: yes Rhythm: NSR, no PVC's, no ectopy Chest X-Ray Diagnostic Results Chest X-Ray Diagnostic Results : Chest X-Ray Ordered: Yes # of Views/Limited/Complete: 1 View Indication: Other - ams EP Interpretation: Yes Interpretation: no pneumothorax, other - RLL infiltrate Impression: Other - ?PNA Electronically Signed by: Electronically signed by Jeferson Cervantes MD Last Vital Signs Date Time Temp Pulse Resp B/P (MAP) Pulse Ox O2 Delivery O2 Flow Rate FiO2 09/06/17 01:09 78 24 40 09/05/17 23:45 Mechanical Ventilator 60.0 09/05/17 23:13 97.3 158/97 100 Status: improved Disposition: ADMITTED INPATIENT Condition: Serious Referrals: PETERSON CALL (PCP) JEFERSON CERVANTES M.D. Sep 06, 2017 01:40
[2017-09-06] MEDS ORDERED: Bisacodyl EC 5mg tab ORAL PRN (06:00)
[2017-09-06] MEDS ORDERED: Milk of Magnesia 30ml Ud ORAL PRN (06:00)
[2017-09-06] MEDS ORDERED: Fleet's Enema 133ml RECTAL PRN (06:00)
[2017-09-06] MEDS: Albuterol ud Inhalation HHN SCH ×3 (07:40→18:55)
--- NOTE | 2017-09-06 08:59 | History & Physical ---
History and Physical History & Physicial 67-year-old male presents to ED for evaluation of hematuria, which was persistent at the SNF. His trach/ventilator dependent. Has G-tube. Upon arrival patient showing no signs of distress. Unable to provide any additional history and admitted for the above Allergies: reviewed Past Medical History: DM, HTN, COPD, GERD, seizures, trach/vent, prior sepsis, obstructive uropathy Past Surgical History: trach and gt Pertinent Family History: none Social History: Denies: smoking, alcohol use, drug use; SNF patient Reviewed of systems: unabel Physical WDWN chronically ill trach clear breath sounds bilaterally without rhonchi or wheeze [id number] without MRG NABS nontender no HSM; GT no CCE noted hematuria Laboratory Tests Test 09/05/17 23:35 09/05/17 23:47 White Blood Count 11.4 K/UL (4.8-10.8) H Red Blood Count 4.45 M/UL (4.70-6.10) L Hemoglobin 15.2 G/DL (14.2-18.0) Hematocrit 41.5 % (42.0-52.0) L Mean Corpuscular Volume 93 FL (80-99) Mean Corpuscular Hemoglobin 34.2 PG (27.0-31.0) H Mean Corpuscular Hemoglobin Concent 36.7 G/DL (32.0-36.0) H Red Cell Distribution Width 10.6 % (11.6-14.8) L Platelet Count 244 K/UL (150-450) Mean Platelet Volume 7.1 FL (6.5-10.1) Neutrophils (%) (Auto) 84.0 % (45.0-75.0) H Lymphocytes (%) (Auto) 10.8 % (20.0-45.0) L Monocytes (%) (Auto) 4.3 % (1.0-10.0) Eosinophils (%) (Auto) 0.0 % (0.0-3.0) Basophils (%) (Auto) 0.8 % (0.0-2.0) Sodium Level 134 MMOL/L (136-145) L Potassium Level 4.8 MMOL/L (3.5-5.1) Chloride Level 98 MMOL/L (98-107) Carbon Dioxide Level 27 MMOL/L (21-32) Anion Gap 9 mmol/L (5-15) Blood Urea Nitrogen 15 mg/dL (7-18) Creatinine 0.5 MG/DL (0.55-1.30) L Estimat Glomerular Filtration Rate > 60 mL/min (>60) Glucose Level 131 MG/DL (74-106) H Lactic Acid Level 1.40 mmol/L (0.66-2.22) Calcium Level 9.9 MG/DL (8.5-10.1) Total Bilirubin 0.9 MG/DL (0.2-1.0) Aspartate Amino Transf (AST/SGOT) 90 U/L (15-37) H Alanine Aminotransferase (ALT/SGPT) 84 U/L (12-78) H Alkaline Phosphatase 130 U/L (46-116) H Total Creatine Kinase 178 U/L (26-308) Creatine Kinase MB 2.6 NG/ML (0.0-3.6) Creatine Kinase MB Relative Index 1.4 Troponin I 0.035 ng/mL (0.000-0.056) Pro-B-Type Natriuretic Peptide 1410 pg/mL (0-125) H Total Protein 9.8 G/DL (6.4-8.2) H Albumin 3.5 G/DL (3.4-5.0) Globulin 6.3 g/dL Albumin/Globulin Ratio 0.6 (1.0-2.7) L Urine Color Red Urine Appearance Cloudy Urine pH 8 (4.5-8.0) Urine Specific [place] 1.010 (1.005-1.035) Urine Protein 4+ (NEGATIVE) H Urine Glucose (UA) Negative (NEGATIVE) Urine Ketones 1+ (NEGATIVE) H Urine Occult Blood 5+ (NEGATIVE) H Urine Nitrite Negative (NEGATIVE) Urine Bilirubin Negative (NEGATIVE) Urine Urobilinogen Normal MG/DL (0.0-1.0) Urine Leukocyte Esterase 2+ (NEGATIVE) H Urine RBC Tntc /HPF (0 - 0) H Urine WBC 20-30 /HPF (0 - 0) H Urine Squamous Epithelial Cells None /LPF (NONE/OCC) Urine Triple Phosphate Crystals Few /LPF (NONE) H Urine Bacteria Few /HPF (NONE) IMPRESSION hematuria possible UTI possible Pneumonia trach GT seizure history CAD history PLAN IV hydration IV antibiotics irrigate clark vent feeds stabilize and dc once improved PETERSON CALL Sep 06, 2017 08:59
[2017-09-06] MEDS: Acetaminophen 650mg/20.3ml ORAL SCH ×4 (09:18→22:32)
[2017-09-06] MEDS: Calcium Carbonate 500mg w/Vit D 200iu tab GT SCH (09:18)
[2017-09-06] MEDS: Pantoprazole Inj IV SCH (09:18)
[2017-09-06] MEDS: Metoprolol 25mg tab GT SCH (09:23)
[2017-09-06 09:37] LABS: BASOPHILS % (AUTO) 0.7 % (0.0-2.0); HEMATOCRIT 39.7 % (42.0-52.0); HEMOGLOBIN 14.1 G/DL (14.2-18.0); LYMPHOCYTES % (AUTO) 8.4 % (20.0-45.0); MEAN CORPUSCULAR VOLUME 95 FL (80-99); MONOCYTES % (AUTO) 8.6 % (1.0-10.0); NEUTROPHILS % (AUTO) 82.4 % (45.0-75.0); PLATELET COUNT 203 K/UL (150-450); RED BLOOD COUNT 4.19 M/UL (4.70-6.10); RED CELL DISTRIBUTION WIDTH 10.9 % (11.6-14.8); WHITE BLOOD COUNT 12.3 K/UL (4.8-10.8)
[2017-09-06] MEDS: Vancomycin 1gm in D5W 275ml IVPB SCH ×2 (09:47→22:23)
[2017-09-06 10:10] LABS: ANION GAP 10 mmol/L (5-15); BLOOD UREA NITROGEN 9 mg/dL (7-18); CALCIUM 9.3 MG/DL (8.5-10.1); CARBON DIOXIDE 26 MMOL/L (21-32); CHLORIDE 102 MMOL/L (98-107); CREATININE 0.6 MG/DL (0.55-1.30); POTASSIUM 3.7 MMOL/L (3.5-5.1); SODIUM 137 MMOL/L (136-145)
--- NOTE | 2017-09-06 12:17 | Diagnostic Imaging Report ---
Indication: Shortness of breath Technique: One view of the chest Comparison: 03/14/2017 Findings: There is tracheostomy. Previously demonstrated PICC is no longer evident. There are perihilar atelectatic changes versus scarring again demonstrated. Normal heart size. No acute infiltrates Impression: No acute process. Findings as noted This agrees with the preliminary interpretation provided by the emergency room physician
[2017-09-06] MEDS: Piperacillin/Tazobactam 3.375 GM in NS 110 ML IVPB SCH ×2 (12:49→21:03)
--- NOTE | 2017-09-06 12:53 | Diagnostic Imaging Report ---
Indication: Shortness of breath Technique: One view of the chest Comparison: 7 hours earlier Findings: Bilateral interstitial prominence and bronchial wall thickening are probably unchanged, allowing for technical differences. There is some atelectasis or scarring in the perihilar regions bilaterally. The pleural spaces are clear. The heart size is normal. Tracheostomy again demonstrated Impression: Unchanged over 7 hours, as described
--- NOTE | 2017-09-06 17:09 | Cardiology Report ---
APPROVED REPORT EKG Measurement Heart [id number] DC [id number] Sinus tachycardia Biatrial enlargement Left anterior fascicular block Cannot rule out Anterior infarct, age undetermined Abnormal ECG
[2017-09-07] VITALS: BP 104/63
[2017-09-07] MEDS: Acetaminophen 650mg/20.3ml ORAL SCH (01:00)
[2017-09-07] MEDS: Albuterol ud Inhalation HHN SCH ×4 (01:00→20:00)
[2017-09-07 04:00] VITALS: BP 128/71
[2017-09-07] MEDS: Piperacillin/Tazobactam 3.375 GM in NS 110 ML IVPB SCH ×3 (04:03→20:23)
[2017-09-07] MEDS ORDERED: Acetaminophen 650mg/20.3ml GT PRN (05:30)
[2017-09-07 08:00] VITALS: BP 126/66
--- NOTE | 2017-09-07 08:22 | General Progress Note ---
Assessment/Plan Assessment/Plan IMPRESSION hematuria possible UTI possible Pneumonia trach GT seizure history CAD history PLAN IV hydration IV antibiotics irrigate clark as needed vent feeds stabilize and dc once improved Subjective ROS Limited/Unobtainable: Yes Allergies: Coded Allergies: No Known Allergies (Unverified , 11/23/14) UNABLE TO ASSESS (Unverified , 03/12/17) Subjective still with pink urine Objective Last 24 Hour Vital Signs Date Time Temp Pulse Resp B/P (MAP) Pulse Ox O2 Delivery O2 Flow Rate FiO2 09/07/17 07:25 125 26 30 09/07/17 05:45 110 21 30 09/07/17 04:07 60.0 30 09/07/17 04:00 110 09/07/17 04:00 99.3 105 21 128/71 100 Mechanical Ventilator 30 09/07/17 03:26 105 16 100 Mechanical Ventilator 60.0 30 09/07/17 03:09 105 16 30 09/07/17 03:07 30 09/07/17 03:06 105 19 100 Mechanical Ventilator 60.0 30 09/07/17 02:05 107 21 30 09/07/17 00:00 99.0 105 23 104/63 99 Mechanical Ventilator 30 09/07/17 00:00 118 09/06/17 23:56 110 22 30 09/06/17 23:02 97.5 09/06/17 21:50 112 26 30 09/06/17 20:00 99.1 126 30 144/79 98 Mechanical Ventilator 30 09/06/17 20:00 109 09/06/17 18:58 30 09/06/17 18:58 117 25 100 Mechanical Ventilator 60.0 30 09/06/17 18:56 117 25 30 09/06/17 17:25 100 19 30 09/06/17 17:00 111 22 30 09/06/17 16:00 98.6 94 18 91/60 100 Mechanical Ventilator 30 09/06/17 16:00 99 09/06/17 16:00 60.0 30 09/06/17 15:15 94 20 30 09/06/17 13:06 94 19 100 Mechanical Ventilator 30 09/06/17 12:54 91 20 30 09/06/17 12:53 91 16 100 Mechanical Ventilator 30 09/06/17 12:00 60.0 40 09/06/17 12:00 99.1 100 22 109/64 90 Mechanical Ventilator 40 09/06/17 11:47 91 09/06/17 11:04 90 24 40 09/06/17 09:25 114 24 40 09/06/17 09:23 118 132/78 Intake and Output 09/06/17 09/07/17 19:00 07:00 Intake Total 1947.416 ml 2027.5 ml Output Total 1100 ml 500 ml Balance 847.416 ml 1527.5 ml Free Water 100 ml 60 ml IV Total 1577.416 ml 1517.5 ml Tube Feeding 270 ml 450 ml Output Urine Total 1100 ml 500 ml # Bowel Movements 1 1 Laboratory Tests 09/06/17 09:00: White Blood Count 12.3H, Red Blood Count 4.19L, Hemoglobin 14.1L, Hematocrit 39.7L, Mean Corpuscular Volume 95, Mean Corpuscular Hemoglobin 33.8H, Mean Corpuscular Hemoglobin Concent 35.6, Red Cell Distribution Width 10.9L, Platelet Count 203, Mean Platelet Volume 6.7, Neutrophils (%) (Auto) 82.4H, Lymphocytes (%) (Auto) 8.4L, Monocytes (%) (Auto) 8.6, Eosinophils (%) (Auto) 0.0, Basophils (%) (Auto) 0.7, Sodium Level 137, Potassium Level 3.7, Chloride Level 102, Carbon Dioxide Level 26, Anion Gap 10, Blood Urea Nitrogen 9, Creatinine 0.6, Estimat Glomerular Filtration Rate > 60, Glucose Level 123H, Calcium Level 9.3 Height (Feet): 5 Height (Inches): 10.00 Weight (Pounds): 136 Objective WDWN NAD clear breath sounds bilaterally with some rhonchi [id number] without MRG NABS nontender no HSM no CC edema clark in place nonfocal PETERSON CALL Sep 07, 2017 08:22
[2017-09-07] MEDS: Metoprolol 25mg tab GT SCH (09:01)
[2017-09-07] MEDS: Calcium Carbonate 500mg w/Vit D 200iu tab GT SCH (09:01)
[2017-09-07] MEDS: Pantoprazole Inj IV SCH (09:02)
[2017-09-07] MEDS: Vancomycin 1gm in D5W 275ml IVPB SCH ×2 (09:06→22:00)
[2017-09-07 12:00] VITALS: BP 146/86
[2017-09-07] MEDS: Micafungin 100 MG in NS 110 ML IVPB SCH (13:28)
[2017-09-07 16:00] VITALS: BP 92/56
[2017-09-07] MEDS ORDERED: Tubing IV Secondary IV ONE (19:30)
[2017-09-07] MEDS ORDERED: NS Irrig 1000ml ONE (19:30)
[2017-09-07 20:00] VITALS: BP 126/73
--- NOTE | 2017-09-07 22:15 | Consultation ---
DATE OF CONSULTATION: 09/07/2017 INFECTIOUS DISEASE CONSULTATION This consult is for coverage of Dr. Valdez. CONSULTING PHYSICIAN: Victor Hugo Mena M.D. PRIMARY ATTENDING PHYSICIAN: Abrahan Umana M.D. REASON FOR CONSULT: Bacteremia, fungemia and urinary tract infection. HISTORY OF PRESENT ILLNESS: The patient is a 67-year-old male who is a [facility] resident, admitted on 09/05/2017 because of gross hematuria. The patient is a ventilator dependent and is not the source of the history. PAST MEDICAL HISTORY: Significant for ventilatory dependent respiratory failure, history of CVA, encephalopathy, epilepsy, hypertension, diabetes mellitus. He is status post G-tube and status post tracheostomy. He has a history of previous admission to [facility], the last one was for urinary retention. ALLERGIES: No known drug allergies. MEDICATIONS: Fluconazole, Tylenol, Zosyn, calcium carbonate, multivitamins, Keppra, metoprolol, Protonix, vancomycin, albuterol, sodium chloride, bisacodyl, and sodium phosphate enema. SOCIAL HISTORY: long-term resident. Single. No other history is obtainable. PHYSICAL EXAMINATION: GENERAL APPEARANCE: Just only opens eyes. VITAL SIGNS: Pulse is 107, , and temperature 98.1 degrees. HEAD AND NECK: Status post tracheostomy. HEART: Regular. Tachycardic. LUNGS: Clear, on mechanical ventilator. ABDOMEN: Soft. G-tube feeding is going on. GENITOURINARY: He has Robles catheter with gross hematuria. EXTREMITIES: He has no edema. He has chronic onychomycosis in the nails. LABORATORY AND DIAGNOSTIC DATA: Sodium 137, potassium 3.7, chloride 102, bicarbonate 26, BUN 9, creatinine 0.6 and glucose 123. WBC 12.2, hemoglobin 14.1, hematocrit 39.7, and platelets 203. Urine culture growing gram-negative rods. Blood culture growing yeast and gram-positive cocci in chains. Another set of blood culture is negative. Chest x-ray, some atelectasis and scarring. IMPRESSION: Bacteremia and fungemia. The patient does not have any central line. Source may be intra-abdominal from urinary tract. The patient has gram-negative urinary tract infection with hematuria, has ventilator-dependent respiratory failure, has encephalopathy, hypertension, and diabetes. RECOMMENDATION: Continue with Zosyn and vancomycin. We will change fluconazole to micafungin. We will obtain abdominal ultrasound to rule out intraabdominal source of infection. At the end of my exam, I thank Dr. Umana, for involving me in the care of this patient. Victor Hugo Mena M.D. DR: GABI JOB#: [id number] CC:
[2017-09-08] VITALS: BP 139/74
[2017-09-08] MEDS: Albuterol ud Inhalation HHN SCH ×4 (01:10→19:20)
[2017-09-08 04:00] VITALS: BP 103/63
[2017-09-08] MEDS: Piperacillin/Tazobactam 3.375 GM in NS 110 ML IVPB SCH ×3 (04:00→19:33)
--- NOTE | 2017-09-08 08:21 | General Progress Note ---
Assessment/Plan Assessment/Plan IMPRESSION hematuria possible UTI possible Pneumonia trach GT seizure history CAD history PLAN IV hydration IV antibiotics antifungals irrigate clark as needed vent ID appreciated feeds stabilize and dc once improved Subjective ROS Limited/Unobtainable: Yes Allergies: Coded Allergies: No Known Allergies (Unverified , 11/23/14) UNABLE TO ASSESS (Unverified , 03/12/17) Subjective still with pink urine bacteremia and fungemia Objective Last 24 Hour Vital Signs Date Time Temp Pulse Resp B/P (MAP) Pulse Ox O2 Delivery O2 Flow Rate FiO2 09/08/17 07:09 78 16 100 Mechanical Ventilator 30 09/08/17 07:09 30 09/08/17 06:58 78 16 100 Mechanical Ventilator 30 09/08/17 06:54 79 16 30 09/08/17 05:04 95 29 30 09/08/17 04:00 98.3 80 21 103/63 100 Mechanical Ventilator 30 09/08/17 04:00 60.0 30 09/08/17 03:54 78 09/08/17 03:20 85 20 30 09/08/17 01:16 81 16 100 Mechanical Ventilator 30 09/08/17 01:09 30 09/08/17 01:09 82 18 100 Mechanical Ventilator 30 09/08/17 01:08 82 18 30 09/08/17 00:00 60.0 30 09/08/17 00:00 98.2 86 19 139/74 100 Mechanical Ventilator 30 09/07/17 23:49 88 09/07/17 23:29 84 19 30 09/07/17 21:29 91 23 30 09/07/17 20:01 30 09/07/17 20:01 89 20 99 Mechanical Ventilator 30 09/07/17 20:00 60.0 30 09/07/17 20:00 98.6 85 18 126/73 100 Mechanical Ventilator 30 09/07/17 19:25 89 20 30 09/07/17 19:15 83 09/07/17 16:50 86 17 30 09/07/17 16:00 99.3 92 27 92/56 99 Mechanical Ventilator 30 09/07/17 16:00 60.0 30 09/07/17 15:46 89 09/07/17 15:18 108 23 30 09/07/17 14:06 98 19 99 Mechanical Ventilator 30 09/07/17 13:55 98 17 100 Mechanical Ventilator 30 09/07/17 13:55 30 09/07/17 13:17 101 28 30 09/07/17 13:01 101.0 09/07/17 12:00 60.0 30 09/07/17 12:00 101.1 102 35 146/86 100 Mechanical Ventilator 30 09/07/17 11:45 107 34 30 09/07/17 11:42 101 09/07/17 09:07 106 22 30 09/07/17 09:01 108 155/77 09/07/17 09:00 60.0 30 09/07/17 08:59 112 Intake and Output 09/07/17 09/08/17 19:00 07:00 Intake Total 1032.5000 ml 790.000 ml Output Total 600 ml 600 ml Balance 432.5000 ml 190.000 ml Free Water 110 ml IV Total 622.5000 ml 790.000 ml Tube Feeding 270 ml Other 30 ml Output Urine Total 600 ml 600 ml # Bowel Movements 2 1 Height (Feet): 5 Height (Inches): 10.00 Weight (Pounds): 136 Objective WDWN NAD clear breath sounds bilaterally with some rhonchi [id number] without MRG NABS nontender no HSM no CC edema clark in place nonfocal PETERSON CALL Sep 08, 2017 08:20
[2017-09-08 08:46] VITALS: BP 116/70
[2017-09-08] MEDS ORDERED: Multivitamins W/Minerals 15 ML UDC NG SCH (09:00)
--- NOTE | 2017-09-08 09:17 | Diagnostic Imaging Report ---
Indication: Abnormal liver function tests Technique: Pat-scale and duplex images of the upper abdomen were obtained Comparison: Findings: Gallbladder is unremarkable, without stones, wall thickening, nor pericholecystic fluid. Sonographic Avery's sign is negative. Common bile duct measures 3 mm in diameter. No intrahepatic biliary ductal dilatation. Liver demonstrates diffusely increased echogenicity, consistent with diffuse hepatocellular disease, most likely fatty change. Portal vein and hepatic veins are patent. Pancreas is unremarkable. Spleen is unremarkable. Left kidney measures 12 cm in length. Right kidney measures 10.3 cm length. Both kidneys demonstrate normal echogenicity. There is no hydronephrosis. Left kidney demonstrates a cyst . Abdominal aorta is partially obscured by bowel gas, visualized portions are non-aneurysmal . Impression: Liver demonstrates diffusely increased echogenicity, consistent with diffuse hepatocellular disease, most likely fatty change. It is somewhat enlarged Negative for gallstones or dilated ducts Note inability to visualize portions of the abdominal aorta Incidental finding left renal cyst
--- NOTE | 2017-09-08 09:18 | Diagnostic Imaging Report ---
Indication: Post gastrostomy replacement Technique: Supine view of the abdomen after injection of water-soluble contrast into gastrostomy Comparison: none Findings: Contrast opacifies the stomach. No contrast extravasation is demonstrated. The bowel gas pattern is unremarkable. Impression: Satisfactory position of gastrostomy tube
[2017-09-08] MEDS: Calcium Carbonate 500mg w/Vit D 200iu tab GT SCH (09:34)
[2017-09-08] MEDS: Multivitamins W/Minerals 15 ML UDC GT SCH (09:34)
[2017-09-08] MEDS: Metoprolol 25mg tab GT SCH (09:35)
[2017-09-08] MEDS: levETIRAcetam 500mg/5ml Liquid NG SCH ×2 (09:35→21:25)
[2017-09-08] MEDS: Pantoprazole Inj IV SCH (09:35)
[2017-09-08] MEDS: Vancomycin 1gm in D5W 275ml IVPB SCH (11:45)
[2017-09-08 12:24] VITALS: BP 124/74
[2017-09-08] MEDS: Micafungin 100 MG in NS 110 ML IVPB SCH (13:37)
--- NOTE | 2017-09-08 13:46 | Infectious Diseases Prog Note ---
Assessment/Plan Assessment/Plan A: Sepsis Bacteremia & Fungemia Complicated UTI Hematuria VDRF DM Encephalopathy P; Continue Micafungin, Zosyn & Vancomycin Add IV Amikacin Urologic evaluation will f/u cultures Subjective ROS Limited/Unobtainable: Yes Allergies: Coded Allergies: No Known Allergies (Unverified , 11/23/14) UNABLE TO ASSESS (Unverified , 03/12/17) Objective Vital Signs Last 24 Hour Vital Signs Date Time Temp Pulse Resp B/P (MAP) Pulse Ox O2 Delivery O2 Flow Rate FiO2 09/08/17 13:19 87 30 100 Mechanical Ventilator 30 09/08/17 13:13 86 18 100 Mechanical Ventilator 30 09/08/17 13:12 82 18 30 09/08/17 12:38 60.0 30 09/08/17 12:24 98.8 73 16 124/74 100 Mechanical Ventilator 30 09/08/17 11:39 76 09/08/17 10:48 83 28 30 09/08/17 09:35 78 116/70 09/08/17 09:12 78 16 30 09/08/17 08:46 98.3 81 18 116/70 100 Mechanical Ventilator 30 09/08/17 08:00 60.0 30 09/08/17 07:37 78 09/08/17 07:09 78 16 100 Mechanical Ventilator 30 09/08/17 07:09 30 09/08/17 06:58 78 16 100 Mechanical Ventilator 30 09/08/17 06:54 79 16 30 09/08/17 05:04 95 29 30 09/08/17 04:00 98.3 80 21 103/63 100 Mechanical Ventilator 30 09/08/17 04:00 60.0 30 09/08/17 03:54 78 09/08/17 03:20 85 20 30 09/08/17 01:16 81 16 100 Mechanical Ventilator 30 09/08/17 01:09 30 09/08/17 01:09 82 18 100 Mechanical Ventilator 30 09/08/17 01:08 82 18 30 09/08/17 00:00 60.0 30 09/08/17 00:00 98.2 86 19 139/74 100 Mechanical Ventilator 30 09/07/17 23:49 88 09/07/17 23:29 84 19 30 09/07/17 21:29 91 23 30 09/07/17 20:01 30 09/07/17 20:01 89 20 99 Mechanical Ventilator 30 09/07/17 20:00 60.0 30 09/07/17 20:00 98.6 85 18 126/73 100 Mechanical Ventilator 30 09/07/17 19:25 89 20 30 09/07/17 19:15 83 09/07/17 16:50 86 17 30 09/07/17 16:00 99.3 92 27 92/56 99 Mechanical Ventilator 30 09/07/17 16:00 60.0 30 09/07/17 15:46 89 09/07/17 15:18 108 23 30 09/07/17 14:06 98 19 99 Mechanical Ventilator 30 09/07/17 13:55 98 17 100 Mechanical Ventilator 30 09/07/17 13:55 30 Height (Feet): 5 Height (Inches): 10.00 Weight (Pounds): 136 General Appearance: no acute distress HEENT: status post trach Respiratory/Chest: lungs clear, other - on ventilator Cardiovascular: normal rate Abdomen: soft, non tender, other - GT feeding Genitourinary: other - Robles catheter, hematuria Extremities: no edema Neurologic/Psychiatric: other - opens eyes Microbiology Date/Time Source Procedure Growth Status 09/05/17 23:45 Blood Blood Culture - Preliminary Streptococcus Species YEAST Resulted 09/05/17 23:35 Blood Blood Culture - Preliminary Resulted 09/05/17 23:47 Urine,Clean Catch Urine Culture - Preliminary Proteus Mirabilis Resulted Laboratory Tests Test 09/08/17 09:45 Vancomycin Level Trough 7.8 ug/mL (5.0-12.0) Current Medications Medications (Trade) Dose Ordered Sig/Latoya Route PRN Reason Start Time Stop Time Status Last Admin Dose Admin Acetaminophen (Tylenol) 650 mg Q4HR PRN GT Prn mild pain/Temp > 101 09/07/17 05:30 10/07/17 05:29 09/07/17 12:31 Albuterol Sulfate (Proventil) 2.5 mg Q6HRT HHN 09/06/17 07:00 09/11/17 06:59 09/08/17 13:13 Bisacodyl (Dulcolax) 10 mg DAILY PRN ORAL Constipation 09/06/17 06:00 10/06/17 05:59 Calcium Carbonate (OsCal D) 1 tab DAILY GT 09/06/17 09:00 10/06/17 08:59 09/08/17 09:34 Dextrose (Dextrose 50%) STAT PRN IV Hypoglycemia 09/06/17 06:00 10/06/17 05:59 Levetiracetam (Keppra) 750 mg Q12HR NG 09/08/17 09:00 10/08/17 08:59 09/08/17 09:35 Magnesium Hydroxide (Mom) 30 ml DAILY PRN ORAL Constipation 09/06/17 06:00 10/06/17 05:59 Metoprolol Tartrate (Lopressor) 75 mg DAILY GT 09/06/17 09:00 10/06/17 08:59 09/08/17 09:35 Micafungin Sodium 100 mg/Sodium Chloride 110 ml @ 110 mls/hr Q24H IVPB 09/07/17 13:00 09/14/17 23:59 09/08/17 13:37 Multivitamins (Multivitamins W/ Minerals 15ml Liquid) 15 ml DAILY GT 09/08/17 09:00 10/08/17 08:59 09/08/17 09:34 Pantoprazole (Protonix) 40 mg DAILY IV 09/06/17 09:00 10/06/17 08:59 09/08/17 09:35 Piperacillin Sod/ Tazobactam Sod 3.375 gm/Sodium Chloride 110 ml @ 27.5 mls/hr Q8H IVPB 09/06/17 12:00 09/13/17 11:59 09/08/17 11:45 Sodium Chloride 1,000 ml @ 100 mls/hr Q10H IVLG 09/06/17 07:00 10/06/17 06:59 09/08/17 09:36 Sodium Phosphate (Fleet's Sodium Phosl Enema) 133 ml QOD PRN RECTAL Constipation 09/06/17 06:00 10/06/17 05:59 Vancomycin HCl (Vanco rx to dose) 1 ea DAILY PRN MISC Per rx protocol 09/06/17 07:45 10/06/17 07:44 Vancomycin HCl 1 gm/Dextrose 275 ml @ 183.708 mls/hr Q12HR IVPB 09/06/17 09:00 09/11/17 08:59 09/08/17 11:45 DUNG LEIGH Sep 08, 2017 13:45
[2017-09-08] MEDS ORDERED: Amikacin Rx to dose MISC PRN (14:00)
[2017-09-08] MEDS: Amikacin 950 MG in NS 110 ML IV SCH (15:37)
[2017-09-08] MEDS ORDERED: Morphine Sulfate 2mg/ml Inj IVP PRN ×2 (15:45→16:00)
[2017-09-08 16:00] VITALS: BP 146/84
--- NOTE | 2017-09-08 17:10 | General Progress Note ---
Assessment/Plan Assessment/Plan GI CONSULT Assessment - resp failure / trach - dysphagia / PEG - contractures - UTI / PNA - h/o CAD Recommendations - continue TF via temporary catheter - will replace with GT catheter in am - elevate HOB Thank you P Jose Subjective Allergies: Coded Allergies: No Known Allergies (Unverified , 11/23/14) UNABLE TO ASSESS (Unverified , 03/12/17) Objective Last 24 Hour Vital Signs Date Time Temp Pulse Resp B/P (MAP) Pulse Ox O2 Delivery O2 Flow Rate FiO2 09/08/17 16:24 98.8 09/08/17 15:00 90 18 30 09/08/17 13:19 87 30 100 Mechanical Ventilator 30 09/08/17 13:13 86 18 100 Mechanical Ventilator 30 09/08/17 13:12 82 18 30 09/08/17 12:38 60.0 30 09/08/17 12:24 98.8 73 16 124/74 100 Mechanical Ventilator 30 09/08/17 11:39 76 09/08/17 10:48 83 28 30 09/08/17 09:35 78 116/70 09/08/17 09:12 78 16 30 09/08/17 08:46 98.3 81 18 116/70 100 Mechanical Ventilator 30 09/08/17 08:00 60.0 30 09/08/17 07:37 78 09/08/17 07:09 78 16 100 Mechanical Ventilator 30 09/08/17 07:09 30 09/08/17 06:58 78 16 100 Mechanical Ventilator 30 09/08/17 06:54 79 16 30 09/08/17 05:04 95 29 30 09/08/17 04:00 98.3 80 21 103/63 100 Mechanical Ventilator 30 09/08/17 04:00 60.0 30 09/08/17 03:54 78 09/08/17 03:20 85 20 30 09/08/17 01:16 81 16 100 Mechanical Ventilator 30 09/08/17 01:09 30 09/08/17 01:09 82 18 100 Mechanical Ventilator 30 09/08/17 01:08 82 18 30 09/08/17 00:00 60.0 30 09/08/17 00:00 98.2 86 19 139/74 100 Mechanical Ventilator 30 09/07/17 23:49 88 09/07/17 23:29 84 19 30 09/07/17 21:29 91 23 30 09/07/17 20:01 30 09/07/17 20:01 89 20 99 Mechanical Ventilator 30 09/07/17 20:00 60.0 30 09/07/17 20:00 98.6 85 18 126/73 100 Mechanical Ventilator 30 09/07/17 19:25 89 20 30 09/07/17 19:15 83 Intake and Output 09/07/17 09/08/17 19:00 07:00 Intake Total 1032.5000 ml 890.000 ml Output Total 600 ml 600 ml Balance 432.5000 ml 290.000 ml Free Water 110 ml IV Total 622.5000 ml 890.000 ml Tube Feeding 270 ml Other 30 ml Output Urine Total 600 ml 600 ml # Bowel Movements 2 1 Laboratory Tests 09/08/17 09:45: Vancomycin Level Trough 7.8 Height (Feet): 5 Height (Inches): 10.00 Weight (Pounds): 136 MICHELINE PIERRE Sep 08, 2017 17:10
[2017-09-08] MEDS: Vancomycin 1250mg/D5W 250ml IVPB SCH (17:34)
[2017-09-08 20:57] VITALS: BP 147/83
[2017-09-09] VITALS: BP 140/75
[2017-09-09] MEDS: Albuterol ud Inhalation HHN SCH ×4 (00:39→19:26)
--- NOTE | 2017-09-09 02:45 | Consultation ---
DATE OF CONSULTATION: 09/08/2017 GASTROENTEROLOGY CONSULTATION CONSULTING PHYSICIAN: Namrata Garcia M.D. CHIEF COMPLAINT: I was asked to see this patient by Dr. Abrahan Umana for evaluation of gastrostomy tube failure. HISTORY OF PRESENT ILLNESS: The patient is an unfortunate debilitated 67-year-old man, who has multiple medical problems including respiratory failure requiring tracheostomy as well as dysphagia requiring gastrostomy, who [facility]. They consider as a possible urinary tract infection and perhaps a pneumonia. He is being treated appropriately, but overnight the gastrostomy tube fell out, and it has been temporarily replaced with a Robles catheter. The patient himself was unable to provide any history. Most of the information is only available from the chart. PAST MEDICAL HISTORY: History of diabetes, hypertension, COPD, GERD, seizures, trach dependent, gastrostomy tube dependent, prior sepsis, and obstructive uropathy. PAST SURGICAL HISTORY: Status gastrostomy and tracheostomy placement. FAMILY HISTORY: Noncontributory. SOCIAL HISTORY: The patient cannot provide. There is no chart history of smoking or drinking. REVIEW OF SYSTEMS: Otherwise negative and unobtainable. MEDICATIONS: See chart list for details. PHYSICAL EXAMINATION: GENERAL: The patient is a debilitated man, seen in his room. HEENT: Normocephalic and atraumatic. NECK: Tracheostomy is in place. CHEST: Revealed coarse breath sounds. CARDIOVASCULAR: Revealed regular rate. ABDOMEN: Soft with a temporary Robles catheter. EXTREMITIES: Revealed no edema. LABORATORY DATA: Noted. ASSESSMENT: This patient presents with a gastrostomy tube dislodgement which is now being replaced with a temporary Robles catheter. We can use until tomorrow, but it should be replaced with a more proper replacement catheter which is secured internally as well as externally. The patient also has some abnormal liver tests, which will require further evaluation with hepatitis serologies. The patient should also undergo an ultrasound of the abdomen to rule out any abnormal masses or stones. RECOMMENDATIONS: Per above discussion and per orders written in the chart. Thank you for asking me to participate in the care of this patient. Namrata Garcia M.D. DR: GERMAN JOB#: [id number] CC: DANYA
[2017-09-09] MEDS: Piperacillin/Tazobactam 3.375 GM in NS 110 ML IVPB SCH (03:36)
[2017-09-09 04:00] VITALS: BP 137/75
[2017-09-09] MEDS: Vancomycin 1250mg/D5W 250ml IVPB SCH (05:51)
[2017-09-09 08:00] VITALS: BP 122/66
--- NOTE | 2017-09-09 08:26 | General Progress Note ---
Assessment/Plan Assessment/Plan IMPRESSION hematuria possible UTI possible Pneumonia trach GT seizure history CAD history Gt dislodged fungemia bacteremia MDR PLAN IV hydration IV antibiotics - change zosyn to amikacin antifungals per ID irrigate clark as needed vent ID appreciated feeds gi for gt change stabilize and dc once improved Subjective ROS Limited/Unobtainable: Yes Allergies: Coded Allergies: No Known Allergies (Unverified , 11/23/14) UNABLE TO ASSESS (Unverified , 03/12/17) Subjective still with hematuria MDR noted gt dislodged bacteremia and fungemia Objective Last 24 Hour Vital Signs Date Time Temp Pulse Resp B/P (MAP) Pulse Ox O2 Delivery O2 Flow Rate FiO2 09/09/17 07:28 85 25 100 Mechanical Ventilator 30 09/09/17 07:17 79 23 100 Mechanical Ventilator 30 09/09/17 07:16 80 20 30 09/09/17 05:25 86 17 30 09/09/17 04:00 60.0 30 09/09/17 04:00 98.2 86 20 137/75 100 Mechanical Ventilator 30 09/09/17 04:00 83 09/09/17 03:13 82 17 30 09/09/17 00:49 91 30 100 Mechanical Ventilator 30 09/09/17 00:39 89 21 100 Mechanical Ventilator 30 09/09/17 00:39 89 21 30 09/09/17 00:00 83 09/09/17 00:00 60.0 30 09/09/17 00:00 98.8 88 24 140/75 100 Mechanical Ventilator 30 09/08/17 23:05 80 19 30 09/08/17 21:00 92 21 30 09/08/17 20:58 60.0 30 09/08/17 20:57 99.5 24 147/83 100 Mechanical Ventilator 30 09/08/17 20:00 103 09/08/17 19:28 98 28 100 Mechanical Ventilator 30 09/08/17 19:20 94 22 30 09/08/17 19:20 94 22 100 Mechanical Ventilator 30 09/08/17 17:23 105 27 30 09/08/17 16:24 98.8 09/08/17 16:00 106 09/08/17 16:00 99.6 104 20 146/84 100 Mechanical Ventilator 30 09/08/17 16:00 60.0 30 09/08/17 15:00 90 18 30 09/08/17 13:19 87 30 100 Mechanical Ventilator 30 09/08/17 13:13 86 18 100 Mechanical Ventilator 30 09/08/17 13:12 82 18 30 09/08/17 12:38 60.0 30 09/08/17 12:24 98.8 73 16 124/74 100 Mechanical Ventilator 30 09/08/17 11:39 76 09/08/17 10:48 83 28 30 09/08/17 09:35 78 116/70 09/08/17 09:12 78 16 30 09/08/17 08:46 98.3 81 18 116/70 100 Mechanical Ventilator 30 Intake and Output 09/08/17 09/09/17 19:00 07:00 Intake Total 1716.0 ml 2050.86 ml Output Total 1300 ml 1800 ml Balance 416.0 ml 250.86 ml Free Water 200 ml IV Total 976.0 ml 1510.86 ml Tube Feeding 540 ml 540 ml Output Urine Total 1300 ml 1700 ml Stool Total 100 ml # Bowel Movements 4 2 Laboratory Tests 09/08/17 09:45: Vancomycin Level Trough 7.8 09/09/17 02:55: Random Amikacin Level [Pending], Hepatitis A IgM Antibody [Pending], Hepatitis B Surface Antigen [Pending], Hepatitis B Core IgM Antibody [Pending], Hepatitis C Antibody [Pending] Height (Feet): 5 Height (Inches): 10.00 Weight (Pounds): 136 Objective WDWN NAD clear breath sounds bilaterally with some rhonchi [id number] without MRG NABS nontender no HSM no CC edema clark in place nonfocal PETERSON CALL Sep 09, 2017 08:26
[2017-09-09] MEDS: levETIRAcetam 500mg/5ml Liquid NG SCH ×2 (09:29→20:43)
[2017-09-09] MEDS: Multivitamins W/Minerals 15 ML UDC GT SCH (09:29)
[2017-09-09] MEDS: Pantoprazole Inj IV SCH (09:30)
[2017-09-09] MEDS: Calcium Carbonate 500mg w/Vit D 200iu tab GT SCH (09:30)
[2017-09-09] MEDS: Metoprolol 25mg tab GT SCH (09:31)
--- NOTE | 2017-09-09 11:20 | Infectious Diseases Prog Note ---
"Assessment/Plan Assessment/Plan antibiotics : vancomycin iv, amikacin, micafungin A 1. streptococcus | lactobacillus sepsis 2. proteus UTI 3. respiratory failure 4. fungemia 5. DM P 1. continue amikacin, micafungin 2. d/c iv vancomycin 3. start ceftriaxone 4. will follow up cultures Subjective ROS Limited/Unobtainable: Yes Allergies: Coded Allergies: No Known Allergies (Unverified , 11/23/14) Objective Vital Signs Last 24 Hour Vital Signs Date Time Temp Pulse Resp B/P (MAP) Pulse Ox O2 Delivery O2 Flow Rate FiO2 09/09/17 10:52 68 16 30 09/09/17 09:31 79 122/66 09/09/17 08:47 85 19 30 09/09/17 08:00 97.7 79 20 122/66 100 Mechanical Ventilator 30 09/09/17 07:54 80 09/09/17 07:28 85 25 100 Mechanical Ventilator 30 09/09/17 07:17 79 23 100 Mechanical Ventilator 30 09/09/17 07:16 80 20 30 09/09/17 05:25 86 17 30 09/09/17 04:00 60.0 30 09/09/17 04:00 98.2 86 20 137/75 100 Mechanical Ventilator 30 09/09/17 04:00 83 09/09/17 03:13 82 17 30 09/09/17 00:49 91 30 100 Mechanical Ventilator 30 09/09/17 00:39 89 21 100 Mechanical Ventilator 30 09/09/17 00:39 89 21 30 09/09/17 00:00 83 09/09/17 00:00 60.0 30 09/09/17 00:00 98.8 88 24 140/75 100 Mechanical Ventilator 30 09/08/17 23:05 80 19 30 09/08/17 21:00 92 21 30 09/08/17 20:58 60.0 30 09/08/17 20:57 99.5 24 147/83 100 Mechanical Ventilator 30 09/08/17 20:00 103 09/08/17 19:28 98 28 100 Mechanical Ventilator 30 09/08/17 19:20 94 22 30 09/08/17 19:20 94 22 100 Mechanical Ventilator 30 09/08/17 17:23 105 27 30 09/08/17 16:24 98.8 2/9/18 16:00 106 09/08/17 16:00 99.6 104 20 146/84 100 Mechanical Ventilator 30 09/08/17 16:00 60.0 30 09/08/17 15:00 90 18 30 09/08/17 13:19 87 30 100 Mechanical Ventilator 30 09/08/17 13:13 86 18 100 Mechanical Ventilator 30 09/08/17 13:12 82 18 30 09/08/17 12:38 60.0 30 09/08/17 12:24 98.8 73 16 124/74 100 Mechanical Ventilator 30 09/08/17 11:39 76 Height (Feet): 5 Height (Inches): 10.00 Weight (Pounds): 136 HEENT: status post trach Respiratory/Chest: lungs clear Cardiovascular: normal rate, regular rhythm, no gallop/murmur Abdomen: soft, non tender, other - GT Extremities: no edema Laboratory Tests Test 09/09/17 02:55 Random Amikacin Level Pending Hepatitis A IgM Antibody Pending Hepatitis B Surface Antigen Pending Hepatitis B Core IgM Antibody Pending Hepatitis C Antibody Pending [place] JEAN Sep 09, 2017 11:20"
[2017-09-09 12:00] VITALS: BP 138/76
[2017-09-09] MEDS: Micafungin 100 MG in NS 110 ML IVPB SCH (13:26)
[2017-09-09] MEDS ORDERED: cefTRIAXone 1 GM in NS 55 ML IVPB SCH (14:00)
[2017-09-09 14:14] LABS: BASOPHILS % (AUTO) 0.7 % (0.0-2.0); HEMATOCRIT 29.6 % (42.0-52.0); HEMOGLOBIN 10.1 G/DL (14.2-18.0); LYMPHOCYTES % (AUTO) 19.6 % (20.0-45.0); MEAN CORPUSCULAR VOLUME 96 FL (80-99); NEUTROPHILS % (AUTO) 59.6 % (45.0-75.0); PLATELET COUNT 161 K/UL (150-450); RED BLOOD COUNT 3.09 M/UL (4.70-6.10); RED CELL DISTRIBUTION WIDTH 10.7 % (11.6-14.8); WHITE BLOOD COUNT 5.7 K/UL (4.8-10.8)
[2017-09-09 14:52] LABS: ANION GAP 5 mmol/L (5-15); BLOOD UREA NITROGEN 6 mg/dL (7-18); CALCIUM 8.3 MG/DL (8.5-10.1); CARBON DIOXIDE 29 MMOL/L (21-32); CHLORIDE 107 MMOL/L (98-107); CREATININE 0.5 MG/DL (0.55-1.30); POTASSIUM 3.1 MMOL/L (3.5-5.1); SODIUM 141 MMOL/L (136-145)
[2017-09-09] MEDS: Amikacin 950 MG in NS 110 ML IV SCH (15:28)
[2017-09-09 16:00] VITALS: BP 124/72
[2017-09-09] MEDS ORDERED: NS 275ml ONE ×2 (16:41→16:45)
--- NOTE | 2017-09-09 16:41 | General Progress Note ---
Assessment/Plan Assessment/Plan Assessment - resp failure / trach - dysphagia / PEG - contractures - UTI / PNA - h/o CAD - anemia - ? urinary loss Recommendations - continue TF - GT care - monitor labs - elevate HOB Subjective Allergies: Coded Allergies: No Known Allergies (Unverified , 11/23/14) Subjective NAD non communicative H&H lower no melena Objective Last 24 Hour Vital Signs Date Time Temp Pulse Resp B/P (MAP) Pulse Ox O2 Delivery O2 Flow Rate FiO2 09/09/17 15:33 81 16 30 09/09/17 13:45 71 16 100 Mechanical Ventilator 30 09/09/17 13:39 74 16 100 Mechanical Ventilator 30 09/09/17 13:38 74 16 30 09/09/17 12:00 60.0 30 09/09/17 10:52 68 16 30 09/09/17 09:31 79 122/66 09/09/17 08:47 85 19 30 09/09/17 08:00 97.7 79 20 122/66 100 Mechanical Ventilator 30 09/09/17 08:00 60.0 30 09/09/17 07:54 80 09/09/17 07:28 85 25 100 Mechanical Ventilator 30 09/09/17 07:17 79 23 100 Mechanical Ventilator 30 09/09/17 07:16 80 20 30 09/09/17 05:25 86 17 30 09/09/17 04:00 60.0 30 09/09/17 04:00 98.2 86 20 137/75 100 Mechanical Ventilator 30 09/09/17 04:00 83 09/09/17 03:13 82 17 30 09/09/17 00:49 91 30 100 Mechanical Ventilator 30 09/09/17 00:39 89 21 100 Mechanical Ventilator 30 09/09/17 00:39 89 21 30 09/09/17 00:00 83 09/09/17 00:00 60.0 30 09/09/17 00:00 98.8 88 24 140/75 100 Mechanical Ventilator 30 09/08/17 23:05 80 19 30 09/08/17 21:00 92 21 30 09/08/17 20:58 60.0 30 09/08/17 20:57 99.5 24 147/83 100 Mechanical Ventilator 30 09/08/17 20:00 103 09/08/17 19:28 98 28 100 Mechanical Ventilator 30 09/08/17 19:20 94 22 30 09/08/17 19:20 94 22 100 Mechanical Ventilator 30 09/08/17 17:23 105 27 30 Intake and Output 09/08/17 09/09/17 19:00 07:00 Intake Total 1716.0 ml 2050.86 ml Output Total 1300 ml 1800 ml Balance 416.0 ml 250.86 ml Free Water 200 ml IV Total 976.0 ml 1510.86 ml Tube Feeding 540 ml 540 ml Output Urine Total 1300 ml 1700 ml Stool Total 100 ml # Bowel Movements 4 2 Laboratory Tests 09/09/17 02:55: Random Amikacin Level 3.1, Hepatitis A IgM Antibody [Pending], Hepatitis B Surface Antigen [Pending], Hepatitis B Core IgM Antibody [Pending], Hepatitis C Antibody [Pending] 09/09/17 14:00: White Blood Count 5.7, Red Blood Count 3.09L, Hemoglobin 10.1L, Hematocrit 29.6L , Mean Corpuscular Volume 96, Mean Corpuscular Hemoglobin 32.8H, Mean Corpuscular Hemoglobin Concent 34.3, Red Cell Distribution Width 10.7L, Platelet Count 161, Mean Platelet Volume 5.8L, Neutrophils (%) (Auto) 59.6, Lymphocytes (%) (Auto) 19.6L, Monocytes (%) (Auto) 11.0H, Eosinophils (%) (Auto ) 9.0H, Basophils (%) (Auto) 0.7, Sodium Level 141, Potassium Level 3.1L, Chloride Level 107, Carbon Dioxide Level 29, Anion Gap 5, Blood Urea Nitrogen 6L , Creatinine 0.5L, Estimat Glomerular Filtration Rate > 60, Glucose Level 112H, Calcium Level 8.3L Height (Feet): 5 Height (Inches): 10.00 Weight (Pounds): 136 Objective Debilitated NCAT CTA RRR soft flat GT changed at bedside with a 20 Fr catheter no edema MICHELINE PIERRE Sep 09, 2017 16:41
[2017-09-09] MEDS ORDERED: Tubing IV Secondary IV ONE (16:45)
[2017-09-09 20:00] VITALS: BP 154/69
[2017-09-10] VITALS: BP 129/70
[2017-09-10] MEDS: Albuterol ud Inhalation HHN SCH ×4 (01:46→19:41)
[2017-09-10 04:00] VITALS: BP 133/65
[2017-09-10 08:00] VITALS: BP 142/78
--- NOTE | 2017-09-10 08:08 | Infectious Diseases Prog Note ---
Assessment/Plan Assessment/Plan A: Sepsis VRE sepsis & Fungemia Complicated UTI Hematuria VDRF DM Encephalopathy P; Continue Micafungin, IV Amikacin Change Rocephin to Unasyn will f/u cultures Subjective ROS Limited/Unobtainable: Yes Neurologic: Reports: other - more alert Allergies: Coded Allergies: No Known Allergies (Unverified , 11/23/14) Objective Vital Signs Last 24 Hour Vital Signs Date Time Temp Pulse Resp B/P (MAP) Pulse Ox O2 Delivery O2 Flow Rate FiO2 09/10/17 07:51 95 20 100 Mechanical Ventilator 30 09/10/17 07:51 30 09/10/17 07:43 84 21 30 09/10/17 07:43 84 21 100 Mechanical Ventilator 30 09/10/17 05:13 90 14 30 09/10/17 04:00 60.0 30 09/10/17 04:00 82 09/10/17 04:00 97.9 80 14 133/65 100 Mechanical Ventilator 30 09/10/17 03:13 77 17 30 09/10/17 02:00 76 20 99 Mechanical Ventilator 30 09/10/17 01:47 30 09/10/17 01:47 92 31 100 Mechanical Ventilator 30 09/10/17 01:43 91 31 30 09/10/17 00:07 82 19 30 09/10/17 00:00 98.8 80 18 129/70 100 Mechanical Ventilator 30 09/10/17 00:00 72 09/09/17 21:09 89 24 30 09/09/17 20:00 60.0 30 09/09/17 20:00 98.4 83 18 154/69 100 Mechanical Ventilator 30 09/09/17 20:00 77 09/09/17 19:43 81 17 100 Mechanical Ventilator 30 09/09/17 19:26 77 20 30 09/09/17 19:26 77 20 99 Mechanical Ventilator 30 09/09/17 19:26 30 09/09/17 18:00 75 09/09/17 17:19 77 18 30 09/09/17 16:00 98.1 74 20 124/72 100 Mechanical Ventilator 30 09/09/17 16:00 60.0 30 09/09/17 15:33 81 16 30 09/09/17 13:45 71 16 100 Mechanical Ventilator 30 09/09/17 13:39 74 16 100 Mechanical Ventilator 30 09/09/17 13:38 74 16 30 09/09/17 12:00 97.7 71 20 138/76 100 Mechanical Ventilator 30 09/09/17 12:00 60.0 30 09/09/17 12:00 68 09/09/17 10:52 68 16 30 09/09/17 09:31 79 122/66 09/09/17 08:47 85 19 30 Height (Feet): 5 Height (Inches): 10.00 Weight (Pounds): 136 General Appearance: no acute distress HEENT: status post trach Respiratory/Chest: lungs clear, other - on venyilator Cardiovascular: normal rate Abdomen: soft, non tender, other - GT feeding Genitourinary: other - Bladder washing, decreased hematuria Neurologic/Psychiatric: alert Laboratory Tests Test 09/09/17 14:00 White Blood Count 5.7 K/UL (4.8-10.8) Red Blood Count 3.09 M/UL (4.70-6.10) L Hemoglobin 10.1 G/DL (14.2-18.0) L Hematocrit 29.6 % (42.0-52.0) L Mean Corpuscular Volume 96 FL (80-99) Mean Corpuscular Hemoglobin 32.8 PG (27.0-31.0) H Mean Corpuscular Hemoglobin Concent 34.3 G/DL (32.0-36.0) Red Cell Distribution Width 10.7 % (11.6-14.8) L Platelet Count 161 K/UL (150-450) Mean Platelet Volume 5.8 FL (6.5-10.1) L Neutrophils (%) (Auto) 59.6 % (45.0-75.0) Lymphocytes (%) (Auto) 19.6 % (20.0-45.0) L Monocytes (%) (Auto) 11.0 % (1.0-10.0) H Eosinophils (%) (Auto) 9.0 % (0.0-3.0) H Basophils (%) (Auto) 0.7 % (0.0-2.0) Sodium Level 141 MMOL/L (136-145) Potassium Level 3.1 MMOL/L (3.5-5.1) L Chloride Level 107 MMOL/L (98-107) Carbon Dioxide Level 29 MMOL/L (21-32) Anion Gap 5 mmol/L (5-15) Blood Urea Nitrogen 6 mg/dL (7-18) L Creatinine 0.5 MG/DL (0.55-1.30) L Estimat Glomerular Filtration Rate > 60 mL/min (>60) Glucose Level 112 MG/DL (74-106) H Calcium Level 8.3 MG/DL (8.5-10.1) L Current Medications Medications (Trade) Dose Ordered Sig/Latoya Route PRN Reason Start Time Stop Time Status Last Admin Dose Admin Acetaminophen (Tylenol) 650 mg Q4HR PRN GT Prn mild pain/Temp > 101 09/07/17 05:30 10/07/17 05:29 09/07/17 12:31 Albuterol Sulfate (Proventil) 2.5 mg Q6HRT HHN 09/06/17 07:00 09/11/17 06:59 09/10/17 07:43 Amikacin Protocol (Amikacin pharmacy to dose) 1 ea DAILY PRN MISC Per rx protocol 09/08/17 14:00 10/08/17 13:59 Amikacin Sulfate 950 mg/Sodium Chloride 113.8 ml @ 220 mls/hr Q24H IV 09/08/17 15:00 09/15/17 14:59 09/09/17 15:28 Bisacodyl (Dulcolax) 10 mg DAILY PRN ORAL Constipation 09/06/17 06:00 10/06/17 05:59 Calcium Carbonate (OsCal D) 1 tab DAILY GT 09/06/17 09:00 10/06/17 08:59 09/09/17 09:30 Ceftriaxone Sodium 1 gm/ Sodium Chloride 55 ml @ 110 mls/hr Q24H IVPB 09/09/17 14:00 09/16/17 13:59 09/09/17 13:28 Dextrose (Dextrose 50%) STAT PRN IV Hypoglycemia 09/06/17 06:00 10/06/17 05:59 Levetiracetam (Keppra) 750 mg Q12HR NG 09/08/17 09:00 10/08/17 08:59 09/09/17 20:43 Magnesium Hydroxide (Mom) 30 ml DAILY PRN ORAL Constipation 09/06/17 06:00 10/06/17 05:59 Metoprolol Tartrate (Lopressor) 75 mg DAILY GT 09/06/17 09:00 10/06/17 08:59 09/09/17 09:31 Micafungin Sodium 100 mg/Sodium Chloride 110 ml @ 110 mls/hr Q24H IVPB 09/07/17 13:00 09/14/17 23:59 09/09/17 13:26 Morphine Sulfate (Morphine Sulfate) 2 mg Q4H PRN IVP Moderate Pain (Pain Scale 4-6) 09/08/17 16:00 09/15/17 15:59 09/08/17 15:57 Multivitamins (Multivitamins W/ Minerals 15ml Liquid) 15 ml DAILY GT 09/08/17 09:00 10/08/17 08:59 09/09/17 09:29 Pantoprazole (Protonix) 40 mg DAILY IV 09/06/17 09:00 10/06/17 08:59 09/09/17 09:30 Sodium Chloride 1,000 ml @ 100 mls/hr Q10H IVLG 09/06/17 07:00 10/06/17 06:59 09/10/17 01:00 Sodium Phosphate (Fleet's Sodium Phosl Enema) 133 ml QOD PRN RECTAL Constipation 09/06/17 06:00 10/06/17 05:59 DUNG LEIGH Sep 10, 2017 08:08
--- NOTE | 2017-09-10 08:39 | General Progress Note ---
Assessment/Plan Assessment/Plan IMPRESSION hematuria possible UTI possible Pneumonia trach GT seizure history CAD history Gt dislodged fungemia bacteremia VRE MDR PLAN IV hydration IV antibiotics - amikacin and will add Linezolid antifungals per ID irrigate clark as needed vent ID appreciated feeds gi for gt change dc planning Subjective ROS Limited/Unobtainable: Yes Allergies: Coded Allergies: No Known Allergies (Unverified , 11/23/14) Subjective still with some hematuria MDR noted gt dislodged bacteremia and fungemia Objective Last 24 Hour Vital Signs Date Time Temp Pulse Resp B/P (MAP) Pulse Ox O2 Delivery O2 Flow Rate FiO2 09/10/17 07:51 95 20 100 Mechanical Ventilator 30 09/10/17 07:51 30 09/10/17 07:43 84 21 30 09/10/17 07:43 84 21 100 Mechanical Ventilator 30 09/10/17 05:13 90 14 30 09/10/17 04:00 60.0 30 09/10/17 04:00 82 09/10/17 04:00 97.9 80 14 133/65 100 Mechanical Ventilator 30 09/10/17 03:13 77 17 30 09/10/17 02:00 76 20 99 Mechanical Ventilator 30 09/10/17 01:47 30 09/10/17 01:47 92 31 100 Mechanical Ventilator 30 09/10/17 01:43 91 31 30 09/10/17 00:07 82 19 30 09/10/17 00:00 98.8 80 18 129/70 100 Mechanical Ventilator 30 09/10/17 00:00 72 09/09/17 21:09 89 24 30 09/09/17 20:00 60.0 30 09/09/17 20:00 98.4 83 18 154/69 100 Mechanical Ventilator 30 09/09/17 20:00 77 09/09/17 19:43 81 17 100 Mechanical Ventilator 30 09/09/17 19:26 77 20 30 09/09/17 19:26 77 20 99 Mechanical Ventilator 30 09/09/17 19:26 30 09/09/17 18:00 75 09/09/17 17:19 77 18 30 09/09/17 16:00 98.1 74 20 124/72 100 Mechanical Ventilator 30 09/09/17 16:00 60.0 30 09/09/17 15:33 81 16 30 2/10/18 13:45 71 16 100 Mechanical Ventilator 30 09/09/17 13:39 74 16 100 Mechanical Ventilator 30 09/09/17 13:38 74 16 30 09/09/17 12:00 97.7 71 20 138/76 100 Mechanical Ventilator 30 09/09/17 12:00 60.0 30 09/09/17 12:00 68 09/09/17 10:52 68 16 30 09/09/17 09:31 79 122/66 09/09/17 08:47 85 19 30 Intake and Output 09/09/17 09/10/17 19:00 07:00 Intake Total 2062.44 ml 1795 ml Output Total 1600 ml 2000 ml Balance 462.44 ml -205 ml Free Water 30 ml IV Total 1462.44 ml 1300 ml Tube Feeding 540 ml 495 ml Other 30 ml Output Urine Total 1450 ml 2000 ml Stool Total 150 ml 0 ml Laboratory Tests 09/09/17 14:00: White Blood Count 5.7, Red Blood Count 3.09L, Hemoglobin 10.1L, Hematocrit 29.6L , Mean Corpuscular Volume 96, Mean Corpuscular Hemoglobin 32.8H, Mean Corpuscular Hemoglobin Concent 34.3, Red Cell Distribution Width 10.7L, Platelet Count 161, Mean Platelet Volume 5.8L, Neutrophils (%) (Auto) 59.6, Lymphocytes (%) (Auto) 19.6L, Monocytes (%) (Auto) 11.0H, Eosinophils (%) (Auto ) 9.0H, Basophils (%) (Auto) 0.7, Sodium Level 141, Potassium Level 3.1L, Chloride Level 107, Carbon Dioxide Level 29, Anion Gap 5, Blood Urea Nitrogen 6L , Creatinine 0.5L, Estimat Glomerular Filtration Rate > 60, Glucose Level 112H, Calcium Level 8.3L Height (Feet): 5 Height (Inches): 10.00 Weight (Pounds): 136 Objective WDWN NAD clear breath sounds bilaterally with some rhonchi [id number] without MRG NABS nontender no HSM no CC edema clark in place nonfocal PETERSON CALL Sep 10, 2017 08:39
[2017-09-10] MEDS: Pantoprazole Inj IV SCH (09:34)
[2017-09-10] MEDS: Multivitamins W/Minerals 15 ML UDC GT SCH (09:34)
[2017-09-10] MEDS: Metoprolol 25mg tab GT SCH (09:35)
[2017-09-10] MEDS: levETIRAcetam 500mg/5ml Liquid NG SCH ×2 (09:36→20:41)
[2017-09-10] MEDS: Calcium Carbonate 500mg w/Vit D 200iu tab GT SCH (09:38)
[2017-09-10] MEDS: Ampicillin/Sulbactam Sod 3 GM in NS 110 ML IVPB SCH ×3 (11:29→23:56)
[2017-09-10 12:00] VITALS: BP 131/71
[2017-09-10] MEDS: Micafungin 100 MG in NS 110 ML IVPB SCH (12:50)
[2017-09-10] MEDS: Amikacin 1,000 MG in NS 110 ML IV SCH (15:42)
[2017-09-10 16:00] VITALS: BP 149/81
[2017-09-10] MEDS ORDERED: NS 500ML ONE (16:32)
[2017-09-10] MEDS ORDERED: Tubing IV Secondary IV ONE (16:32)
--- NOTE | 2017-09-10 18:55 | General Progress Note ---
Assessment/Plan Assessment/Plan Assessment - resp failure / trach - dysphagia / PEG - contractures - UTI / PNA - h/o CAD - anemia - ? urinary loss Recommendations - continue TF - GT care - monitor labs - elevate HOB Subjective Allergies: Coded Allergies: No Known Allergies (Unverified , 11/23/14) Subjective NAD non communicative tolerating TF Objective Last 24 Hour Vital Signs Date Time Temp Pulse Resp B/P (MAP) Pulse Ox O2 Delivery O2 Flow Rate FiO2 09/10/17 17:22 75 17 30 09/10/17 16:00 80 09/10/17 16:00 60.0 30 09/10/17 16:00 97.9 80 18 149/81 100 Mechanical Ventilator 09/10/17 15:36 79 17 30 09/10/17 13:24 78 20 100 Mechanical Ventilator 30 09/10/17 13:23 30 09/10/17 13:17 72 17 30 09/10/17 13:16 72 17 100 Mechanical Ventilator 30 09/10/17 12:00 97.7 72 18 131/71 100 Mechanical Ventilator 09/10/17 12:00 60.0 30 09/10/17 12:00 70 09/10/17 11:14 74 24 30 09/10/17 09:35 88 132/71 09/10/17 09:17 91 21 30 09/10/17 08:00 60.0 30 09/10/17 08:00 88 09/10/17 08:00 98.1 102 16 142/78 100 Mechanical Ventilator 40 09/10/17 07:51 95 20 100 Mechanical Ventilator 30 09/10/17 07:51 30 09/10/17 07:43 84 21 30 09/10/17 07:43 84 21 100 Mechanical Ventilator 30 09/10/17 05:13 90 14 30 09/10/17 04:00 60.0 30 09/10/17 04:00 82 09/10/17 04:00 97.9 80 14 133/65 100 Mechanical Ventilator 30 09/10/17 03:13 77 17 30 09/10/17 02:00 76 20 99 Mechanical Ventilator 30 09/10/17 01:47 30 09/10/17 01:47 92 31 100 Mechanical Ventilator 30 09/10/17 01:43 91 31 30 09/10/17 00:07 82 19 30 2/11/18 00:00 98.8 80 18 129/70 100 Mechanical Ventilator 30 09/10/17 00:00 72 09/09/17 21:09 89 24 30 09/09/17 20:00 60.0 30 09/09/17 20:00 98.4 83 18 154/69 100 Mechanical Ventilator 30 09/09/17 20:00 77 09/09/17 19:43 81 17 100 Mechanical Ventilator 30 09/09/17 19:26 77 20 30 09/09/17 19:26 77 20 99 Mechanical Ventilator 30 09/09/17 19:26 30 Intake and Output 09/09/17 09/10/17 19:00 07:00 Intake Total 2062.44 ml 1795 ml Output Total 1600 ml 2000 ml Balance 462.44 ml -205 ml Free Water 30 ml IV Total 1462.44 ml 1300 ml Tube Feeding 540 ml 495 ml Other 30 ml Output Urine Total 1450 ml 2000 ml Stool Total 150 ml 0 ml Height (Feet): 5 Height (Inches): 10.00 Weight (Pounds): 136 Objective Debilitated NCAT CTA RRR soft flat GT changed at bedside with a 20 Fr catheter no edema MICHELINE PIERRE Sep 10, 2017 18:55
[2017-09-10 20:00] VITALS: BP 150/88
[2017-09-11] VITALS: BP 145/88
[2017-09-11] MEDS: Albuterol ud Inhalation HHN SCH (02:01)
[2017-09-11 04:00] VITALS: BP 144/86
[2017-09-11 04:02] LABS: EOSINOPHILS % (AUTO) 8.8 % (0.0-3.0); HEMATOCRIT 29.3 % (42.0-52.0); HEMOGLOBIN 10.6 G/DL (14.2-18.0); LYMPHOCYTES % (AUTO) 20.6 % (20.0-45.0); MEAN CORPUSCULAR VOLUME 94 FL (80-99); MONOCYTES % (AUTO) 11.6 % (1.0-10.0); PLATELET COUNT 193 K/UL (150-450); RED BLOOD COUNT 3.11 M/UL (4.70-6.10); RED CELL DISTRIBUTION WIDTH 10.4 % (11.6-14.8); WHITE BLOOD COUNT 4.9 K/UL (4.8-10.8)
[2017-09-11 04:13] LABS: ANION GAP 9 mmol/L (5-15); BLOOD UREA NITROGEN 3 mg/dL (7-18); CALCIUM 8.8 MG/DL (8.5-10.1); CARBON DIOXIDE 29 MMOL/L (21-32); CHLORIDE 103 MMOL/L (98-107); CREATININE 0.5 MG/DL (0.55-1.30); POTASSIUM 2.9 MMOL/L (3.5-5.1); SODIUM 141 MMOL/L (136-145)
[2017-09-11] MEDS: Ampicillin/Sulbactam Sod 3 GM in NS 110 ML IVPB SCH ×3 (05:41→17:58)
--- NOTE | 2017-09-11 07:54 | General Progress Note ---
Assessment/Plan Assessment/Plan IMPRESSION hematuria possible UTI possible Pneumonia trach GT seizure history CAD history Gt dislodged fungemia bacteremia VRE MDR PLAN IV hydration IV antibiotics - amikacin and Unasyn antifungals per ID irrigate clark as needed vent ID appreciated feeds gi for gt change dc planning pending ID recommendations replace K Subjective Allergies: Coded Allergies: No Known Allergies (Unverified , 11/23/14) Subjective MDR noted gt dislodged but working bacteremia and fungemia Objective Last 24 Hour Vital Signs Date Time Temp Pulse Resp B/P (MAP) Pulse Ox O2 Delivery O2 Flow Rate FiO2 09/11/17 07:29 89 21 30 09/11/17 04:57 85 27 30 09/11/17 04:00 81 09/11/17 04:00 97.5 80 18 144/86 100 Mechanical Ventilator 09/11/17 04:00 60.0 30 09/11/17 03:09 77 17 30 09/11/17 02:15 78 17 100 Mechanical Ventilator 30 09/11/17 02:03 90 19 99 Mechanical Ventilator 30 09/11/17 02:03 30 09/11/17 02:01 90 19 30 09/11/17 00:00 98.2 69 18 145/88 100 Mechanical Ventilator 09/11/17 00:00 83 09/11/17 00:00 60.0 30 09/10/17 23:36 86 17 30 09/10/17 20:00 98.6 79 18 150/88 100 Mechanical Ventilator 09/10/17 20:00 60.0 30 09/10/17 20:00 77 09/10/17 19:54 80 20 100 Mechanical Ventilator 30 09/10/17 19:44 78 18 100 Mechanical Ventilator 30 09/10/17 19:44 30 09/10/17 19:41 78 18 30 09/10/17 19:12 81 18 30 09/10/17 17:22 75 17 30 09/10/17 16:00 80 09/10/17 16:00 60.0 30 09/10/17 16:00 97.9 80 18 149/81 100 Mechanical Ventilator 09/10/17 15:36 79 17 30 09/10/17 13:24 78 20 100 Mechanical Ventilator 30 09/10/17 13:23 30 09/10/17 13:17 72 17 30 09/10/17 13:16 72 17 100 Mechanical Ventilator 30 09/10/17 12:00 97.7 72 18 131/71 100 Mechanical Ventilator 09/10/17 12:00 60.0 30 09/10/17 12:00 70 09/10/17 11:14 74 24 30 09/10/17 09:35 88 132/71 09/10/17 09:17 91 21 30 09/10/17 08:00 60.0 30 09/10/17 08:00 88 09/10/17 08:00 98.1 102 16 142/78 100 Mechanical Ventilator 40 Intake and Output 09/10/17 09/11/17 19:00 07:00 Intake Total 490 ml 2070.0 ml Output Total 1500 ml 900 ml Balance -1010 ml 1170.0 ml Free Water 300 ml 100 ml IV Total 100 ml 1430.0 ml Tube Feeding 90 ml 540 ml Output Urine Total 1500 ml 900 ml # Bowel Movements 100 Laboratory Tests 09/11/17 03:00: White Blood Count 4.9, Red Blood Count 3.11L, Hemoglobin 10.6L, Hematocrit 29.3L , Mean Corpuscular Volume 94, Mean Corpuscular Hemoglobin 34.0H, Mean Corpuscular Hemoglobin Concent 36.1H, Red Cell Distribution Width 10.4L, Platelet Count 193, Mean Platelet Volume 5.9L, Neutrophils (%) (Auto) 58.0, Lymphocytes (%) (Auto) 20.6, Monocytes (%) (Auto) 11.6H, Eosinophils (%) (Auto) 8.8H, Basophils (%) (Auto) 1.0, Sodium Level 141, Potassium Level 2.9L, Chloride Level 103, Carbon Dioxide Level 29, Anion Gap 9, Blood Urea Nitrogen 3L , Creatinine 0.5L, Estimat Glomerular Filtration Rate > 60, Glucose Level 112H, Calcium Level 8.8 Height (Feet): 5 Height (Inches): 10.00 Weight (Pounds): 136 Objective WDWN NAD clear breath sounds bilaterally with some rhonchi [id number] without MRG NABS nontender no HSM no CC edema clark in place nonfocal PETERSON CALL Sep 11, 2017 07:54
[2017-09-11 08:00] VITALS: BP 140/86
[2017-09-11] MEDS: levETIRAcetam 500mg/5ml Liquid GT SCH ×2 (08:47→21:18)
[2017-09-11] MEDS: Calcium Carbonate 500mg w/Vit D 200iu tab GT SCH (08:47)
[2017-09-11] MEDS: Metoprolol 25mg tab GT SCH (08:48)
[2017-09-11] MEDS: Multivitamins W/Minerals 15 ML UDC GT SCH (08:48)
[2017-09-11] MEDS ORDERED: NS 500ML ONE (10:07)
[2017-09-11 11:56] VITALS: BP 128/82
[2017-09-11] MEDS: Micafungin 100 MG in NS 110 ML IVPB SCH (12:48)
--- NOTE | 2017-09-11 12:53 | Infectious Diseases Prog Note ---
Assessment/Plan Assessment/Plan A: Sepsis VRE sepsis & Fungemia Complicated UTI Hematuria VDRF DM Encephalopathy P; Change Micafungin to Fluconazole' continue it X 7 days Continue IV Amikacin X 3 days Continue Unasyn X 7 days Case was D/W RN & family preservation caseworker Subjective ROS Limited/Unobtainable: Yes Respiratory: Reports: productive cough Allergies: Coded Allergies: No Known Allergies (Unverified , 11/23/14) Objective Vital Signs Last 24 Hour Vital Signs Date Time Temp Pulse Resp B/P (MAP) Pulse Ox O2 Delivery O2 Flow Rate FiO2 09/11/17 12:00 60.0 30 09/11/17 11:56 97.9 75 21 128/82 99 Mechanical Ventilator 30 09/11/17 11:06 75 24 30 09/11/17 09:01 75 18 30 09/11/17 08:48 88 140/86 09/11/17 08:00 60.0 30 09/11/17 08:00 97.9 88 20 140/86 100 Mechanical Ventilator 30 09/11/17 08:00 85 09/11/17 07:29 89 21 30 09/11/17 04:57 85 27 30 09/11/17 04:00 81 09/11/17 04:00 97.5 80 18 144/86 100 Mechanical Ventilator 09/11/17 04:00 60.0 30 09/11/17 03:09 77 17 30 09/11/17 02:15 78 17 100 Mechanical Ventilator 30 09/11/17 02:03 90 19 99 Mechanical Ventilator 30 09/11/17 02:03 30 09/11/17 02:01 90 19 30 09/11/17 00:00 98.2 69 18 145/88 100 Mechanical Ventilator 09/11/17 00:00 83 09/11/17 00:00 60.0 30 09/10/17 23:36 86 17 30 09/10/17 20:00 98.6 79 18 150/88 100 Mechanical Ventilator 09/10/17 20:00 60.0 30 09/10/17 20:00 77 09/10/17 19:54 80 20 100 Mechanical Ventilator 30 09/10/17 19:44 78 18 100 Mechanical Ventilator 30 09/10/17 19:44 30 09/10/17 19:41 78 18 30 09/10/17 19:12 81 18 30 09/10/17 17:22 75 17 30 09/10/17 16:00 80 09/10/17 16:00 60.0 30 09/10/17 16:00 97.9 80 18 149/81 100 Mechanical Ventilator 09/10/17 15:36 79 17 30 09/10/17 13:24 78 20 100 Mechanical Ventilator 30 09/10/17 13:23 30 09/10/17 13:17 72 17 30 09/10/17 13:16 72 17 100 Mechanical Ventilator 30 Height (Feet): 5 Height (Inches): 10.00 Weight (Pounds): 136 HEENT: status post trach Respiratory/Chest: other - on ventilator Cardiovascular: normal rate Abdomen: soft, non tender, other - GT feed Genitourinary: other - Triple lumen catheter, bladder washing Extremities: no edema Neurologic/Psychiatric: other - opens eyes Laboratory Tests Test 09/11/17 03:00 White Blood Count 4.9 K/UL (4.8-10.8) Red Blood Count 3.11 M/UL (4.70-6.10) L Hemoglobin 10.6 G/DL (14.2-18.0) L Hematocrit 29.3 % (42.0-52.0) L Mean Corpuscular Volume 94 FL (80-99) Mean Corpuscular Hemoglobin 34.0 PG (27.0-31.0) H Mean Corpuscular Hemoglobin Concent 36.1 G/DL (32.0-36.0) H Red Cell Distribution Width 10.4 % (11.6-14.8) L Platelet Count 193 K/UL (150-450) Mean Platelet Volume 5.9 FL (6.5-10.1) L Neutrophils (%) (Auto) 58.0 % (45.0-75.0) Lymphocytes (%) (Auto) 20.6 % (20.0-45.0) Monocytes (%) (Auto) 11.6 % (1.0-10.0) H Eosinophils (%) (Auto) 8.8 % (0.0-3.0) H Basophils (%) (Auto) 1.0 % (0.0-2.0) Sodium Level 141 MMOL/L (136-145) Potassium Level 2.9 MMOL/L (3.5-5.1) L Chloride Level 103 MMOL/L (98-107) Carbon Dioxide Level 29 MMOL/L (21-32) Anion Gap 9 mmol/L (5-15) Blood Urea Nitrogen 3 mg/dL (7-18) L Creatinine 0.5 MG/DL (0.55-1.30) L Estimat Glomerular Filtration Rate > 60 mL/min (>60) Glucose Level 112 MG/DL (74-106) H Calcium Level 8.8 MG/DL (8.5-10.1) Current Medications Medications (Trade) Dose Ordered Sig/Latoya Route PRN Reason Start Time Stop Time Status Last Admin Dose Admin Acetaminophen (Tylenol) 650 mg Q4HR PRN GT Prn mild pain/Temp > 101 09/07/17 05:30 10/07/17 05:29 09/07/17 12:31 Amikacin Protocol (Amikacin pharmacy to dose) 1 ea DAILY PRN MISC Per rx protocol 09/08/17 14:00 10/08/17 13:59 Amikacin Sulfate 1000 mg/Sodium Chloride 114 ml @ 220.408 mls/hr Q24H IV 09/10/17 15:00 09/17/17 14:59 09/10/17 15:42 Ampicillin Sodium/ Sulbactam Sodium 3 gm/Sodium Chloride 110 ml @ 220 mls/hr Q6HR IVPB 09/10/17 10:00 09/17/17 09:59 09/11/17 11:28 Bisacodyl (Dulcolax) 10 mg DAILY PRN ORAL Constipation 09/06/17 06:00 10/06/17 05:59 Calcium Carbonate (OsCal D) 1 tab DAILY GT 09/06/17 09:00 10/06/17 08:59 09/11/17 08:47 Dextrose (Dextrose 50%) STAT PRN IV Hypoglycemia 09/06/17 06:00 10/06/17 05:59 Lansoprazole (Prevacid) 30 mg DAILY GT 09/11/17 09:00 10/11/17 08:59 09/11/17 08:47 Levetiracetam (Keppra) 750 mg Q12HR GT 09/11/17 09:00 10/11/17 08:59 09/11/17 08:47 Magnesium Hydroxide (Mom) 30 ml DAILY PRN ORAL Constipation 09/06/17 06:00 10/06/17 05:59 Metoprolol Tartrate (Lopressor) 75 mg DAILY GT 09/06/17 09:00 10/06/17 08:59 09/11/17 08:48 Micafungin Sodium 100 mg/Sodium Chloride 110 ml @ 110 mls/hr Q24H IVPB 09/07/17 13:00 09/14/17 23:59 09/10/17 12:50 Morphine Sulfate (Morphine Sulfate) 2 mg Q4H PRN IVP Moderate Pain (Pain Scale 4-6) 09/08/17 16:00 09/15/17 15:59 09/08/17 15:57 Multivitamins (Multivitamins W/ Minerals 15ml Liquid) 15 ml DAILY GT 09/08/17 09:00 10/08/17 08:59 09/11/17 08:48 Sodium Chloride 1,000 ml @ 100 mls/hr Q10H IVLG 09/06/17 07:00 10/06/17 06:59 09/11/17 06:59 Sodium Phosphate (Fleet's Sodium Phosl Enema) 133 ml QOD PRN RECTAL Constipation 09/06/17 06:00 10/06/17 05:59 DUNG LEIGH Sep 11, 2017 12:53
[2017-09-11] MEDS: Amikacin 1,000 MG in NS 110 ML IV SCH (15:13)
[2017-09-11 16:00] VITALS: BP 153/93
[2017-09-11 20:00] VITALS: BP 147/81
--- NOTE | 2017-09-11 21:43 | General Progress Note ---
Assessment/Plan Assessment/Plan Assessment - resp failure / trach - dysphagia / PEG - contractures - UTI / PNA - h/o CAD - anemia - ? urinary loss Recommendations - continue TF - GT care - monitor labs - elevate HOB Subjective Allergies: Coded Allergies: No Known Allergies (Unverified , 11/23/14) Subjective NAD non communicative tolerating TF for d/c today Objective Last 24 Hour Vital Signs Date Time Temp Pulse Resp B/P (MAP) Pulse Ox O2 Delivery O2 Flow Rate FiO2 09/11/17 17:22 83 19 30 09/11/17 16:00 97.7 86 26 153/93 100 Mechanical Ventilator 30 09/11/17 16:00 83 09/11/17 16:00 60.0 30 09/11/17 15:25 75 24 30 09/11/17 12:55 82 35 30 09/11/17 12:00 73 09/11/17 12:00 60.0 30 09/11/17 11:56 97.9 75 21 128/82 99 Mechanical Ventilator 30 09/11/17 11:06 75 24 30 09/11/17 09:01 75 18 30 09/11/17 08:48 88 140/86 09/11/17 08:00 60.0 30 09/11/17 08:00 97.9 88 20 140/86 100 Mechanical Ventilator 30 09/11/17 08:00 85 09/11/17 07:29 89 21 30 09/11/17 04:57 85 27 30 09/11/17 04:00 81 09/11/17 04:00 97.5 80 18 144/86 100 Mechanical Ventilator 09/11/17 04:00 60.0 30 09/11/17 03:09 77 17 30 09/11/17 02:15 78 17 100 Mechanical Ventilator 30 09/11/17 02:03 90 19 99 Mechanical Ventilator 30 09/11/17 02:03 30 09/11/17 02:01 90 19 30 09/11/17 00:00 98.2 69 18 145/88 100 Mechanical Ventilator 09/11/17 00:00 83 09/11/17 00:00 60.0 30 09/10/17 23:36 86 17 30 Intake and Output 09/10/17 09/11/17 19:00 07:00 Intake Total 490 ml 2070.0 ml Output Total 1500 ml 900 ml Balance -1010 ml 1170.0 ml Free Water 300 ml 100 ml IV Total 100 ml 1430.0 ml Tube Feeding 90 ml 540 ml Output Urine Total 1500 ml 900 ml # Bowel Movements 100 Laboratory Tests 09/11/17 03:00: White Blood Count 4.9, Red Blood Count 3.11L, Hemoglobin 10.6L, Hematocrit 29.3L , Mean Corpuscular Volume 94, Mean Corpuscular Hemoglobin 34.0H, Mean Corpuscular Hemoglobin Concent 36.1H, Red Cell Distribution Width 10.4L, Platelet Count 193, Mean Platelet Volume 5.9L, Neutrophils (%) (Auto) 58.0, Lymphocytes (%) (Auto) 20.6, Monocytes (%) (Auto) 11.6H, Eosinophils (%) (Auto) 8.8H, Basophils (%) (Auto) 1.0, Sodium Level 141, Potassium Level 2.9L, Chloride Level 103, Carbon Dioxide Level 29, Anion Gap 9, Blood Urea Nitrogen 3L , Creatinine 0.5L, Estimat Glomerular Filtration Rate > 60, Glucose Level 112H, Calcium Level 8.8 Height (Feet): 5 Height (Inches): 10.00 Weight (Pounds): 136 Objective Debilitated NCAT CTA RRR soft flat GT changed at bedside with a 20 Fr catheter no edema MICHELINE PIERRE Sep 11, 2017 21:43
[2017-09-12] VITALS: BP 141/89
[2017-09-12] MEDS ORDERED: Tubing IV Secondary IV ONE (00:44)
[2017-09-12] MEDS ORDERED: Fluconazole 100mg tab GT SCH (09:00)
--- NOTE | 2017-09-12 13:16 | Diagnostic Imaging Report ---
APPROVED REPORT CPT Code: 93835 Present Symptoms Shortness of breath Past History DVT :Left RIGHT LEG: Venous imaging reveals a patent deep venous system. There is no evidence of thrombus within the femoral, popliteal or tibial segments. The greater saphenous vein is also within normal limits. Doppler indicates normal spontaneous flow within these segments. 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 Imaging also reveals patency of the common femoral, popliteal and calf veins ( anterior tibial and peroneal). The greater saphenous vein is within normal limits. There is no evidence of acute deep vein thrombosis.
--- NOTE | 2017-09-14 14:32 | Discharge Summary ---
Discharge Summary Hospital Course Date of Admission Sep 05, 2017 at 23:59 Date of Discharge Sep 12, 2017 at 00:45 Admitting Diagnosis hematuria HPI Sergei Felipe is a 67 year old male who was admitted on Sep 05, 2017 at 23:59 for Hematuria Hospital Course [id number] Discharge Discharge Disposition Patient was discharged to SNF/Subacute Facility(03) Discharge Diagnoses: Mary Kay Dowling NP Sep 14, 2017 14:32
--- NOTE | 2017-09-15 00:30 | Discharge Summary 2 SIG ---
DATE OF ADMISSION: 09/05/2017 DATE OF DISCHARGE: 09/12/2017 CONSULTANTS: 1. Rod Valdez M.D. 2. Namrata Garcia M.D. BRIEF HOSPITAL COURSE: The patient is a 67-year-old male, who presented to ED for evaluation of hematuria, which was persistent at the retirement. He has history of chronic respiratory failure and is on trach and ventilator dependent. He has a G-tube. He has history significant for diabetes mellitus, hypertension, chronic obstructive pulmonary disease, gastroesophageal reflux disease, seizures, obstructive uropathy, and renal failure. On evaluation at ED, there was minimal leukocytosis, WBC was 11. Troponin was negative. UA was grossly positive for urinary tract infection. He had a chest x-ray done that showed possible right lower lung infiltrate. EKG was in sinus tachycardia. He was admitted to [facility] for evaluation of hematuria and urinary tract infection. He was empirically started on Zosyn and vancomycin. Fluconazole was changed to micafungin pending culture results. Dr. Garcia was consulted for evaluation of malfunctioning G-tube. Apparently, gastrostomy tube fell out and it was temporarily replaced by Robles catheter. On 09/09/2017, G-tube was changed at bedside with a 20-Uz[place] catheter [address] Dr. Garcia. Blood cultures showed growth of Enterococcus and Destiny. Urine culture showed growth of Proteus ESBL. IV vancomycin was discontinued and was given amikacin and micafungin. On discharge, micafungin was changed to fluconazole. He was given potassium replacement and was eventually discharged back to [facility] to continue fluconazole for seven days, IV amikacin for three days, and Unasyn for seven days. FINAL DIAGNOSES: 1. Sepsis. 2. Vancomycin-resistant Enterococcus sepsis and fungemia. 3. Complicated urinary tract infection. 4. Hematuria. 5. Possible pneumonia. 6. Chronic respiratory failure and on trach. 7. Dysphagia with gastrostomy tube. 8. Seizure disorder. 9. Malfunctioning gastrostomy tube, status post bedside replacement. 10. Fungemia. 11. Multidrug resistant. 12. Anemia. 13. Hypokalemia. DISPOSITION: The patient was discharged back to [facility]. DISCHARGE MEDICATIONS: As stated above. Abrahan Umana M.D. I have been assigned to dictate discharge summary on this account and I was not involved in the patient's management. Mary Kay Dowling N.P. DR: TIAN JOB#: [id number] CC: DANYA
== END 2017-09-12 00:45 | DRG 720 ==
LOC: EDBD 23:12 → EMR 23:34 → 2W 23:59 → EDBEDREQ 09-06 00:12
PROC: 5A1955Z Respiratory Ventilation, Greater than 96 Consecutive Hours (ICD-10-PCS; principal; 2017-09-05)
DX: A41.81 Sepsis due to Enterococcus (principal); Z99.11 Dependence on respirator [ventilator] status; J18.9 Pneumonia, unspecified organism; G93.40 Encephalopathy, unspecified; Z93.0 Tracheostomy status; J96.10 Chronic respiratory failure, unspecified whether with hypoxia or hypercapnia; B49 Unspecified mycosis; N39.0 Urinary tract infection, site not specified; Z93.1 Gastrostomy status; R31.0 Gross hematuria; G40.909 Epilepsy, unspecified, not intractable, without status epilepticus; I25.10 Atherosclerotic heart disease of native coronary artery without angina pectoris; Z86.73 Personal history of transient ischemic attack (TIA), and cerebral infarction without residual deficits; I10 Essential (primary) hypertension; E11.9 Type 2 diabetes mellitus without complications; Z43.1 Encounter for attention to gastrostomy; E87.6 Hypokalemia
CPT/HCPCS: 36415; 71045; 74018; 76700; 80048; 80053; 80150; 80202; 80299; 81003; 82550; 82553; 82962; 83605; 83880; 84484; 85025; 86705; 86709; 86803; 87040; 87086; 87181; 87340; 93005; 93970; 94002; 94003; 94640; 94664; 99285; J8499

== ENCOUNTER 2017-09-20 10:20 | Inpatient (IN) | payer OTHER ==
[~2017-09-20] VITALS: Ht 172.7 cm; Wt 56.9 kg
[~2017-09-20 10:20] MED LIST changes: +METOPROLOL TART25 MG ORAL; +MULTIVITAMINS1 EAC2 ORAL; +XARELTO10 MG ORAL
[2017-09-20 10:30] VITALS: BP 188/107
[2017-09-20] MEDS ORDERED: Albuterol/Ipratropium 3ml neb HHN ONE (10:30)
[2017-09-20 12:00] VITALS: BP 177/106
--- NOTE | 2017-09-20 12:14 | Diagnostic Imaging Report ---
Indication: Shortness of breath Technique: XRAY Chest 1v Comparison: 09/06/2017 Findings: Tracheostomy tube in place. Heart size and mediastinal contours are stable. There is mild perihilar atelectasis or scarring. Since unchanged from the prior exam. There is no new focal airspace consolidation, no pleural effusion or pneumothorax. No acute osseous abnormality. Impression: No acute process. Mild perihilar atelectasis or scarring, unchanged. No new focal consolidation.
[2017-09-20 12:15] LABS: HEMATOCRIT 41.3 % (42.0-52.0); HEMOGLOBIN 14.2 G/DL (14.2-18.0); MEAN CORPUSCULAR VOLUME 95 FL (80-99); PLATELET COUNT 486 K/UL (150-450); RED BLOOD COUNT 4.35 M/UL (4.70-6.10); RED CELL DISTRIBUTION WIDTH 11.4 % (11.6-14.8); WHITE BLOOD COUNT 13.6 K/UL (4.8-10.8)
[2017-09-20 12:22] LABS: INR 1.1 (0.9-1.1)
[2017-09-20 12:25] LABS: ANION GAP 13 mmol/L (5-15); BLOOD UREA NITROGEN 19 mg/dL (7-18); CALCIUM 9.8 MG/DL (8.5-10.1); CARBON DIOXIDE 26 MMOL/L (21-32); CHLORIDE 96 MMOL/L (98-107); CREATININE 0.8 MG/DL (0.55-1.30); POTASSIUM 3.9 MMOL/L (3.5-5.1); SODIUM 135 MMOL/L (136-145)
[2017-09-20 12:40] LABS: ALANINE AMINOTRANSFERASE 81 U/L (12-78); ALBUMIN 3.7 G/DL (3.4-5.0); ALBUMIN/GLOBULIN RATIO 0.6 (1.0-2.7); ALKALINE PHOSPHATASE 131 U/L (46-116); ASPARTATE AMINO TRANSFERASE 81 U/L (15-37); BILIRUBIN,TOTAL 0.7 MG/DL (0.2-1.0); CKMB 1.9 NG/ML (0.0-3.6); CREATINE KINASE 130 U/L (26-308)
[2017-09-20 14:00] VITALS: BP 171/107
--- NOTE | 2017-09-20 14:27 | Emergency Room Report ---
History of Present Illness General Chief Complaint: Male Urogenital Problems Source: Patient, Medical Record Present Illness HPI Patient is a 67-year-old male brought in by EMS after increased bleeding from Robles catheter. Patient bleeding for several days reportedly. Patient was noted to have prior history of chronic ventilator dependence. The patient had baseline cognitive impairments. History is markedly limited by patient's mental status. The patient is followed by Dr. 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 Hx Cancer: No Hx Gastrointestinal Problems: Yes - hematuria, obstructive and reflux uropahty Hx Neurological Problems: Yes Hx Cerebrovascular Accident: Yes Hx Seizures: Yes - epilepsy Hx Paralysis: Yes Hx Concentration Difficulty: Yes Hx Speech Problem: Yes Hx Dysphasia: Yes Hx Weakness: Yes Review of Systems All Other Systems: negative except mentioned in HPI Physical Exam Vital Signs Date Time Temp Pulse Resp B/P (MAP) Pulse Ox O2 Delivery O2 Flow Rate FiO2 09/20/17 10:14 85 16 180/80 95 Mechanical Ventilator 40 09/20/17 12:00 98.1 98.1 Sp02 EP Interpretation: reviewed, normal General Appearance: normal inspection, well appearing, no apparent distress, alert, GCS 15 Head: atraumatic ENT: normal ENT inspection, hearing grossly normal, normal voice Neck: normal inspection, supple, no bony tend, limited range of motion Respiratory: normal inspection, no respiratory distress, no retraction, no wheezing, other - ventilator dependent Cardiovascular #1: regular rate, rhythm, no edema Gastrointestinal: normal inspection, normal bowel sounds, no guarding, no hernia, other - distended bladder, suprapubic tenderness Genitourinary: no CVA tenderness Musculoskeletal: normal inspection, back normal, normal range of motion Neurologic: normal inspection, responsive, other - aphasic, moves upper extremities bilaterally Psychiatric: mood/affect normal Skin: normal inspection, normal color, no rash Medical Decision Making Diagnostic Impression: Primary Impression: Gross hematuria Additional Impressions: Robles catheter in place Ventilator dependence Obstructive uropathy ER Course Patient presented for gross hematuria. Differential diagnosis included wasn't limited to Robles catheter trauma, coagulopathy, anemia, bladder cancer, aortic aneurysm among others. Because of complexity of patient's case laboratory testing and imaging studies were ordered. Patient was noted to have gross hematuria. A Robles catheter was attempted without success. The patient noted have a markedly distended bladder. The patient was given IV antibiotics. Dr. Vipul Ruiz was contacted for urology consult. Dr. Peterson Call was contacted for inpatient management. Labs Test 09/20/17 12:00 White Blood Count 13.6 K/UL (4.8-10.8) Red Blood Count 4.35 M/UL (4.70-6.10) Hemoglobin 14.2 G/DL (14.2-18.0) Hematocrit 41.3 % (42.0-52.0) Mean Corpuscular Volume 95 FL (80-99) Mean Corpuscular Hemoglobin 32.6 PG (27.0-31.0) Mean Corpuscular Hemoglobin Concent 34.4 G/DL (32.0-36.0) Red Cell Distribution Width 11.4 % (11.6-14.8) Platelet Count 486 K/UL (150-450) Mean Platelet Volume 6.3 FL (6.5-10.1) Neutrophils (%) (Auto) % (45.0-75.0) Lymphocytes (%) (Auto) % (20.0-45.0) Monocytes (%) (Auto) % (1.0-10.0) Eosinophils (%) (Auto) % (0.0-3.0) Basophils (%) (Auto) % (0.0-2.0) Differential Total Cells Counted 100 Neutrophils % (Manual) 90 % (45-75) Lymphocytes % (Manual) 9 % (20-45) Monocytes % (Manual) 1 % (1-10) Eosinophils % (Manual) 0 % (0-3) Basophils % (Manual) 0 % (0-2) Band Neutrophils 0 % (0-8) Platelet Estimate Adequate Platelet Morphology Normal Red Blood Cell Morphology Normal Prothrombin Time 11.0 SEC (9.30-11.50) Prothromb Time International Ratio 1.1 (0.9-1.1) Activated Partial Thromboplast Time 33 SEC (23-33) Sodium Level 135 MMOL/L (136-145) Potassium Level 3.9 MMOL/L (3.5-5.1) Chloride Level 96 MMOL/L (98-107) Carbon Dioxide Level 26 MMOL/L (21-32) Anion Gap 13 mmol/L (5-15) Blood Urea Nitrogen 19 mg/dL (7-18) Creatinine 0.8 MG/DL (0.55-1.30) Estimat Glomerular Filtration Rate > 60 mL/min (>60) Glucose Level 165 MG/DL (74-106) Lactic Acid Level 4.60 mmol/L (0.66-2.22) Calcium Level 9.8 MG/DL (8.5-10.1) Total Bilirubin 0.7 MG/DL (0.2-1.0) Aspartate Amino Transf (AST/SGOT) 81 U/L (15-37) Alanine Aminotransferase (ALT/SGPT) 81 U/L (12-78) Alkaline Phosphatase 131 U/L (46-116) Total Creatine Kinase 130 U/L (26-308) Creatine Kinase MB 1.9 NG/ML (0.0-3.6) Creatine Kinase MB Relative Index 1.4 Troponin I 0.034 ng/mL (0.000-0.056) Total Protein 9.9 G/DL (6.4-8.2) Albumin 3.7 G/DL (3.4-5.0) Globulin 6.2 g/dL Albumin/Globulin Ratio 0.6 (1.0-2.7) Last Vital Signs Date Time Temp Pulse Resp B/P (MAP) Pulse Ox O2 Delivery O2 Flow Rate FiO2 09/20/17 14:00 98.0 105 24 171/107 100 Mechanical Ventilator 40 98.0 Status: unchanged Disposition: ADMITTED INPATIENT Condition: Serious Referrals: PETERSON CALL (PCP) Casey Vann Sep 20, 2017 14:27
[2017-09-20] MEDS ORDERED: ceFAZolin 1gm/50ml Premix 50 ML IV ONE (14:45)
[2017-09-20] MEDS ORDERED: ceFAZolin sod 1 GM in NS 55 ML IVP ONE (14:45)
[2017-09-20 16:00] VITALS: BP 162/112
[2017-09-20] MEDS ORDERED: FLUCONAZOLE100 MG GT (16:44)
[2017-09-20] MEDS ORDERED: METOPROLOL TART25 MG GT ×2 (16:44→20:32)
[2017-09-20] MEDS ORDERED: XARELTO10 MG GT (16:44)
[2017-09-20] MEDS ORDERED: OYSTER SHELL C500 MG GT (16:44)
[2017-09-20] MEDS ORDERED: Acetaminophen 650 MG SUPP RECTAL ONE (17:12)
[2017-09-20] MEDS ORDERED: Acetaminophen 650 MG SUPP RECTAL PRN (17:15)
[2017-09-20 17:30] VITALS: BP 156/106
[2017-09-20 19:30] VITALS: BP 127/88
[2017-09-20 20:17] LABS: APPEARANCE,URINE CLOUDY; BILIRUBIN, URINE NEGATIVE (NEGATIVE); COLOR,URINE RED; GLUCOSE, URINE (UA) NEGATIVE (NEGATIVE); KETONES,URINE NEGATIVE (NEGATIVE); LEUKOCYTE ESTERASE ,URINE 3+ (NEGATIVE); NITRITE,URINE NEGATIVE (NEGATIVE); PH,URINE 6.5 (4.5-8.0); PROTEIN,URINE 4+ (NEGATIVE); UROBILINOGEN,URINE NORMAL MG/DL (0.0-1.0)
--- NOTE | 2017-09-20 20:22 | Consultation ---
History of Present Illness General Date patient seen: Sep 20, 2017 Chief Complaint: Male Urogenital Problems Referring physician: pepito Reason for Consultation: retention Present Illness HPI 67 yo male SN[facility] patient, with hematuria for a few days. Transferred for further workup. Unable to get catheter in. Patient non communicative Allergies: Coded Allergies: No Known Allergies (Unverified , 11/23/14) Medication History Scheduled Acetaminophen (Acetaminophen), 650 MG ORAL Q4HR, (Reported) Albuterol Sulfate* (Albuterol Sulfate Hhn*), 3 ML INH EVERY 6 HOURS, (Reported) Arginine/Glutamine/Calcium Hmb (Andrei Packet), 1 EACH GT BID, (Reported) Calcium Carbonate (Oyster Shell Calcium), 500 MG GT DAILY, (Reported) Calcium Carbonate/Vitamin D3 (Oyster Shell 500 Mg + Vit D Tb), 1 TAB GT DAILY, ( Reported) Fluconazole (Fluconazole), 400 MG GT DAILY, (Reported) Levetiracetam (Keppra), 500 MG GT EVERY 12 HOURS, (Reported) Metoprolol Tartrate* (Metoprolol Tartrate*), 25 MG GT TID, (Reported) Multivitamin (Multi Vitamin Daily), 1 TAB GT DAILY, (Reported) Multivitamins* (Multivitamins*), 1 TAB ORAL DAILY, (Reported) Rivaroxaban (Xarelto*), 20 MG GT DAILY, (Reported) Scheduled PRN Bisacodyl* (Dulcolax*), 10 MG RECTAL DAILY PRN for Constipation, (Reported) Lorazepam* (Ativan*), 0.5 MG GT EVERY 8 HOURS PRN for For Anxiety, (Reported) Magnesium Hydroxide* (Milk Of Magnesia*), 30 ML ORAL DAILY PRN for Constipation, (Reported) Na Phos,M-B/Na Phos,Di-Ba* (Fleet Enema*), 133 ML RECTAL QOD PRN for Constipation, (Reported) [dulcolax supp], 10 MG RC DAILY PRN for Constipation, (Reported) Miscellaneous Medications [regular insulin], (Reported) Patient History Limited by: age History Provided By: Patient, Medical Record Healthcare decision maker Resuscitation status Advanced Directive on File Past Medical/Surgical History Past Medical/Surgical History: (1) GI (gastrointestinal bleed) (2) Pneumonia Review of Systems Constitutional: Denies: no symptoms, see HPI, chills, sweats, fever, malaise, weakness, other Eye: Denies: no symptoms, see HPI, eye pain, blurred vision, tearing, double vision, nose pain, nose congestion, acuity changes, discharge, other All Other Systems: negative except mentioned in HPI Physical Exam General Appearance: no apparent distress HEENT: atraumatic Neck: supple Cardiovascular/Chest: normal rate Abdomen: soft, distended Genitourinary/Rectal: other - foreskin with paraphimosis Extremities: non-tender Neurologic: alert, oriented x 3 Last 24 Hour Vital Signs Date Time Temp Pulse Resp B/P (MAP) Pulse Ox O2 Delivery O2 Flow Rate FiO2 09/20/17 19:50 97.0 123 17 127/88 100 Mechanical Ventilator 40 101.1 09/20/17 19:30 97.0 125 17 127/88 100 Mechanical Ventilator 40 97.0 09/20/17 19:30 124 17 40 09/20/17 18:33 101.1 09/20/17 17:30 101.0 115 22 156/106 100 Mechanical Ventilator 40 101.0 09/20/17 17:13 101.9 09/20/17 17:00 113 23 40 09/20/17 16:00 98.1 107 24 162/112 100 Mechanical Ventilator 40 98.1 09/20/17 15:43 78 24 40 09/20/17 14:00 98.0 105 24 171/107 100 Mechanical Ventilator 40 98.0 09/20/17 13:13 88 22 40 09/20/17 12:34 100 22 100 Mechanical Ventilator 40 09/20/17 12:00 98.1 103 21 177/106 100 Mechanical Ventilator 40 98.1 09/20/17 11:30 40 09/20/17 11:20 86 19 100 Mechanical Ventilator 40 09/20/17 10:30 96 20 Mechanical Ventilator 09/20/17 10:30 40 09/20/17 10:30 96 20 188/107 100 Mechanical Ventilator 09/20/17 10:17 87 24 40 09/20/17 10:14 85 16 180/80 95 Mechanical Ventilator 40 Laboratory Tests Test 09/20/17 12:00 09/20/17 15:45 09/20/17 19:25 White Blood Count 13.6 K/UL (4.8-10.8) H Red Blood Count 4.35 M/UL (4.70-6.10) L Hemoglobin 14.2 G/DL (14.2-18.0) Hematocrit 41.3 % (42.0-52.0) L Mean Corpuscular Volume 95 FL (80-99) Mean Corpuscular Hemoglobin 32.6 PG (27.0-31.0) H Mean Corpuscular Hemoglobin Concent 34.4 G/DL (32.0-36.0) Red Cell Distribution Width 11.4 % (11.6-14.8) L Platelet Count 486 K/UL (150-450) H Mean Platelet Volume 6.3 FL (6.5-10.1) L Neutrophils (%) (Auto) % (45.0-75.0) Lymphocytes (%) (Auto) % (20.0-45.0) Monocytes (%) (Auto) % (1.0-10.0) Eosinophils (%) (Auto) % (0.0-3.0) Basophils (%) (Auto) % (0.0-2.0) Differential Total Cells Counted 100 Neutrophils % (Manual) 90 % (45-75) H Lymphocytes % (Manual) 9 % (20-45) L Monocytes % (Manual) 1 % (1-10) Eosinophils % (Manual) 0 % (0-3) Basophils % (Manual) 0 % (0-2) Band Neutrophils 0 % (0-8) Platelet Estimate Adequate Platelet Morphology Normal Red Blood Cell Morphology Normal Prothrombin Time 11.0 SEC (9.30-11.50) Prothromb Time International Ratio 1.1 (0.9-1.1) Activated Partial Thromboplast Time 33 SEC (23-33) Sodium Level 135 MMOL/L (136-145) L Potassium Level 3.9 MMOL/L (3.5-5.1) Chloride Level 96 MMOL/L (98-107) L Carbon Dioxide Level 26 MMOL/L (21-32) Anion Gap 13 mmol/L (5-15) Blood Urea Nitrogen 19 mg/dL (7-18) H Creatinine 0.8 MG/DL (0.55-1.30) Estimat Glomerular Filtration Rate > 60 mL/min (>60) Glucose Level 165 MG/DL (74-106) H Lactic Acid Level 4.60 mmol/L (0.66-2.22) H 2.40 mmol/L (0.66-2.22) H Calcium Level 9.8 MG/DL (8.5-10.1) Total Bilirubin 0.7 MG/DL (0.2-1.0) Aspartate Amino Transf (AST/SGOT) 81 U/L (15-37) H Alanine Aminotransferase (ALT/SGPT) 81 U/L (12-78) H Alkaline Phosphatase 131 U/L (46-116) H Total Creatine Kinase 130 U/L (26-308) Creatine Kinase MB 1.9 NG/ML (0.0-3.6) Creatine Kinase MB Relative Index 1.4 Troponin I 0.034 ng/mL (0.000-0.056) Total Protein 9.9 G/DL (6.4-8.2) H Albumin 3.7 G/DL (3.4-5.0) Globulin 6.2 g/dL Albumin/Globulin Ratio 0.6 (1.0-2.7) L Urine Color Pending Urine Appearance Pending Urine pH Pending Urine Specific [place] Pending Urine Protein Pending Urine Glucose (UA) Pending Urine Ketones Pending Urine Occult Blood Pending Urine Nitrite Pending Urine Bilirubin Pending Urine Urobilinogen Pending Urine Leukocyte Esterase Pending Height (Feet): 5 Height (Inches): 8.00 Weight (Pounds): 170 Medications Current Medications Medications (Trade) Dose Ordered Sig/Latoya Route PRN Reason Start Time Stop Time Status Last Admin Dose Admin Acetaminophen (Tylenol) 650 mg Q4H PRN RECTAL Mild Pain (Pain Scale 1-3) 09/20/17 17:15 10/20/17 17:14 09/20/17 17:13 Objective Narrative Procedure: under sterile conditions, paraphimosis reduced with manual compression Procedure: under sterile conditions, attempt at passing [address] failed, unable to irrigate catheter. 20 bengali coude then passed with immediate return of urine. about 1800 mL brown/dark red urine. Clark irrigated and no clots seen. Distention resolved. Assessment/Plan Status: stable Assessment/Plan 67 yo male with hematuria, possibly from UTI. Retention due to poor clark placement. proper catheter placed, bladder drained, no clots seen. Treat per culture. Leave clark in till hematuria resolved. 1. urine culture, empiric treatment of UTI 2. catheter and penile care for paraphimosis. Davi Ruiz M.D. Sep 20, 2017 20:22
[2017-09-20] MEDS ORDERED: LEVETIRACE100 MG/1 M GT (20:31)
[2017-09-20] MEDS ORDERED: XARELTO20 MG GT (20:33)
[2017-09-20] MEDS ORDERED: COLACE100 MG GT (20:40)
[2017-09-20] MEDS ORDERED: DULCOLAX10 MG RC (20:40)
[2017-09-20] MEDS ORDERED: ACETAMINOP160 MG/51 GT (20:43)
[2017-09-20] MEDS ORDERED: Zolpidem 5mg tab GT PRN (22:15)
[2017-09-20] MEDS ORDERED: Milk of Magnesia 30ml Ud GT PRN (22:15)
[2017-09-20] MEDS ORDERED: Zosyn 3.375gm inj ONE (23:37)
[2017-09-21] VITALS: BP 120/72
[2017-09-21] MEDS ORDERED: Vancomycin 750mg/NS 250ml IVPB SCH
[2017-09-21] MEDS ORDERED: Vancomycin 500mg/D5W 110ml IVPB SCH ×2
[2017-09-21] MEDS ORDERED: Piperacillin/Tazobactam 3.375 GM in D5W 110 ML IVPB SCH ×2
[2017-09-21] MEDS: Albuterol/Ipratropium 3ml neb HHN SCH ×4 (01:09→19:06)
[2017-09-21 04:00] VITALS: BP 109/68
[2017-09-21 06:05] LABS: HEMOGLOBIN 12.2 G/DL (14.2-18.0); MEAN CORPUSCULAR VOLUME 95 FL (80-99); PLATELET COUNT 389 K/UL (150-450); RED BLOOD COUNT 3.58 M/UL (4.70-6.10); RED CELL DISTRIBUTION WIDTH 11.7 % (11.6-14.8); WHITE BLOOD COUNT 20.3 K/UL (4.8-10.8)
[2017-09-21 06:07] LABS: ANION GAP 10 mmol/L (5-15); BLOOD UREA NITROGEN 39 mg/dL (7-18); CALCIUM 9.7 MG/DL (8.5-10.1); CARBON DIOXIDE 28 MMOL/L (21-32); CHLORIDE 98 MMOL/L (98-107); CREATININE 1.2 MG/DL (0.55-1.30); POTASSIUM 4.6 MMOL/L (3.5-5.1); SODIUM 136 MMOL/L (136-145)
[2017-09-21 08:00] VITALS: BP 122/76
[2017-09-21] MEDS: Pantoprazole Inj IVP SCH (09:17)
[2017-09-21] MEDS: Metoprolol Tartrate 50mg tab GT SCH (09:17)
[2017-09-21] MEDS: levETIRAcetam 500mg/5ml Liquid NG SCH ×2 (09:18→20:50)
[2017-09-21] MEDS: Piperacillin/Tazobactam 3.375 GM in D5W 110 ML IVPB SCH ×2 (09:25→17:11)
[2017-09-21 12:00] VITALS: BP 104/68
[2017-09-21] MEDS: Vancomycin 750mg/NS 250ml IVPB SCH (13:40)
[2017-09-21 16:00] VITALS: BP 121/70
--- NOTE | 2017-09-21 19:02 | History and Physical Report ---
DATE OF ADMISSION: 09/20/2017 REASON FOR ADMISSION: Hematuria, leukocytosis, possible sepsis. HISTORY OF PRESENT ILLNESS: The patient is a 67-year-old male, brought in with recurrent hematuria. The patient was seen by emergency room Urology. The patient had a Robles catheter placed. The patient had been admitted for empiric antibiotics. PAST MEDICAL HISTORY: Notable for respiratory failure, prior sepsis, hematuria in the past, obstructive or reflux uropathy, CVA, and seizures. MEDICATIONS: Reviewed. ALLERGIES: Reviewed. PHYSICAL EXAMINATION: GENERAL: An ill-appearing male, reduced mental status. VITAL SIGNS: Temperature 98.0 degrees, pulse 118, respirations 28, and blood pressure 122/76. HEENT: Negative. Trach in place. LUNGS: With coarse breath sounds. Moderate air entry. CARDIAC: Tachycardic. ABDOMEN: Soft. G-tube. EXTREMITIES: No cyanosis or clubbing. Robles catheter in place. LABORATORY AND DIAGNOSTIC DATA: Lab data reviewed in detail. IMPRESSION: 1. Sepsis. 2. Hematuria. 3. Possible urinary tract infection. 4. Leukocytosis. 5. Tachycardia. 6. Seizure disorder. RECOMMENDATION: 1. Resume medications. 2. ID evaluation. 3. Urology evaluation. 4. Continuous irrigation. 5. Monitor renal function. 6. Tube feeds support, and we will follow clinically for stabilization and discharge planning. Abrahan Umana M.D. DR: TAD JOB#: [id number] CC:
[2017-09-21 20:00] VITALS: BP 119/64
[2017-09-22] VITALS: BP 109/53
[2017-09-22] MEDS: Piperacillin/Tazobactam 3.375 GM in D5W 110 ML IVPB SCH ×3 (00:16→17:01)
[2017-09-22] MEDS: Albuterol/Ipratropium 3ml neb HHN SCH ×4 (01:19→19:35)
[2017-09-22] MEDS: Vancomycin 750mg/NS 250ml IVPB SCH ×2 (02:47→14:00)
[2017-09-22 04:00] VITALS: BP 120/75
[2017-09-22 08:00] VITALS: BP 104/57
[2017-09-22] MEDS: Pantoprazole Inj IVP SCH (08:58)
[2017-09-22] MEDS: levETIRAcetam 500mg/5ml Liquid NG SCH ×2 (08:58→21:33)
[2017-09-22] MEDS: Metoprolol Tartrate 50mg tab GT SCH (09:00)
--- NOTE | 2017-09-22 09:18 | General Progress Note ---
Assessment/Plan Assessment/Plan IMPRESSION: 1. Sepsis. 2. Hematuria. 3. Possible urinary tract infection. 4. Leukocytosis. 5. Tachycardia. 6. Seizure disorder PLAN IV antibiotics irrigate check cultures feeds vent Subjective Allergies: Coded Allergies: No Known Allergies (Unverified , 11/23/14) Subjective hematuria better Objective Last 24 Hour Vital Signs Date Time Temp Pulse Resp B/P (MAP) Pulse Ox O2 Delivery O2 Flow Rate FiO2 09/22/17 08:00 93 28 100 Mechanical Ventilator 40 09/22/17 08:00 98.6 97 16 104/57 99 Mechanical Ventilator 40 98.6 09/22/17 08:00 40 09/22/17 07:51 40 09/22/17 07:50 91 28 98 Mechanical Ventilator 40 09/22/17 07:45 102 09/22/17 07:27 91 28 40 09/22/17 05:18 89 23 40 09/22/17 04:00 97.7 98 22 120/75 100 Mechanical Ventilator 40 97.7 09/22/17 04:00 40 09/22/17 03:59 102 09/22/17 03:13 88 23 40 09/22/17 01:27 88 23 99 Mechanical Ventilator 40 09/22/17 01:18 40 09/22/17 01:18 91 23 40 09/22/17 01:18 91 23 99 Mechanical Ventilator 40 09/22/17 00:00 99 09/22/17 00:00 98.4 98 24 109/53 100 Mechanical Ventilator 40 98.4 09/22/17 00:00 40 09/21/17 23:03 89 26 40 09/21/17 21:13 92 25 40 09/21/17 20:08 104 09/21/17 20:00 40 09/21/17 20:00 98.2 100 28 119/64 100 Mechanical Ventilator 40 98.2 09/21/17 19:15 105 25 99 Mechanical Ventilator 40 09/21/17 19:06 102 22 40 09/21/17 19:06 102 22 99 Mechanical Ventilator 40 09/21/17 19:06 40 09/21/17 16:36 106 22 40 09/21/17 16:00 98.4 102 22 121/70 100 Mechanical Ventilator 40 98.4 09/21/17 16:00 96 09/21/17 16:00 40 09/21/17 15:15 106 25 40 09/21/17 13:00 40 09/21/17 13:00 40 09/21/17 12:45 106 21 40 09/21/17 12:00 40 09/21/17 12:00 97.8 98 25 104/68 100 Mechanical Ventilator 40 97.8 09/21/17 12:00 93 09/21/17 11:36 107 20 100 Mechanical Ventilator 40 09/21/17 11:26 107 21 100 Mechanical Ventilator 40 09/21/17 11:26 104 21 40 09/21/17 11:26 40 09/21/17 09:17 107 122/76 Intake and Output 09/21/17 09/22/17 19:00 07:00 Intake Total 2150.833 ml 2215.626 ml Output Total 650 ml 550 ml Balance 1500.833 ml 1665.626 ml Intake Free Water 100 ml IV Total 1410.833 ml 1705.626 ml Tube Feeding 540 ml 360 ml Other 100 ml 150 ml Output Urine Total 650 ml 550 ml # Bowel Movements 3 Laboratory Tests 09/22/17 01:00: Vancomycin Level Trough 6.5 Height (Feet): 5 Height (Inches): 8.00 Weight (Pounds): 235 Objective GENERAL: An ill-appearing male, reduced mental status. HEENT: Negative. Trach in place. LUNGS: With coarse breath sounds. Moderate air entry. CARDIAC: RRR ABDOMEN: Soft. G-tube. EXTREMITIES: No cyanosis or clubbing. Robles catheter in place. . PETERSON CALL Sep 22, 2017 09:17
[2017-09-22 09:59] LABS: BASOPHILS % (AUTO) 1.2 % (0.0-2.0); EOSINOPHILS % (AUTO) 1.8 % (0.0-3.0); HEMATOCRIT 24.5 % (42.0-52.0); HEMOGLOBIN 8.3 G/DL (14.2-18.0); LYMPHOCYTES % (AUTO) 25.9 % (20.0-45.0); MEAN CORPUSCULAR VOLUME 97 FL (80-99); MONOCYTES % (AUTO) 11.1 % (1.0-10.0); PLATELET COUNT 241 K/UL (150-450); RED BLOOD COUNT 2.53 M/UL (4.70-6.10); RED CELL DISTRIBUTION WIDTH 11.7 % (11.6-14.8); WHITE BLOOD COUNT 8.4 K/UL (4.8-10.8)
[2017-09-22 10:41] LABS: ANION GAP 9 mmol/L (5-15); BLOOD UREA NITROGEN 24 mg/dL (7-18); CALCIUM 8.6 MG/DL (8.5-10.1); CARBON DIOXIDE 25 MMOL/L (21-32); CHLORIDE 107 MMOL/L (98-107); CREATININE 0.8 MG/DL (0.55-1.30); SODIUM 141 MMOL/L (136-145)
[2017-09-22 12:00] VITALS: BP 107/68
[2017-09-22] MEDS ORDERED: Zolpidem 5mg tab GT PRN (14:00)
[2017-09-22 16:00] VITALS: BP 133/78
[2017-09-22] MEDS: Vancomycin oral 125mg/2.5ml ORAL SCH ×2 (17:58→21:32)
[2017-09-22 20:00] VITALS: BP 124/66
--- NOTE | 2017-09-22 23:15 | Wound Care Consultation ---
Wound Assessment Wound Assessment : Wound Number: 1 Wound Present on Admission: Yes New Wound: No Status Change of Wound: No Wound Location Body Site Modif: mid Wound Location Body Site: other - Sacrococcygeal Wound Type: scar Zuleika Test: Does not Zuleika Wound Thickness: Full Thickness Percent of Wound [place]/Red: 100 Wound Drainage Amount: None Wound Drainage Odor: None/Absent Tissue Surrounding Wound: Intact Wound General Appearance: Reddened Wound Comment #1 Sacrococcygeal full thickness scar tissue Recommendation -Local wound care per protocol -Keep clean and dry -Optimize nutrition -Offload both heels -Heel protector on both heels -Low air loss mattress -Turn and reposition -Assess and f/u accordingly for any changes STEPHANIE WASHBURN RN Sep 22, 2017 23:15
[2017-09-23] VITALS: BP 128/73
[2017-09-23] MEDS: Albuterol/Ipratropium 3ml neb HHN SCH ×5 (01:17→23:55)
[2017-09-23] MEDS: Vancomycin 750mg/NS 250ml IVPB SCH ×2 (01:31→14:16)
[2017-09-23 04:00] VITALS: BP 132/75
[2017-09-23 05:36] LABS: HEMOGLOBIN 7.5 G/DL (14.2-18.0); MEAN CORPUSCULAR VOLUME 98 FL (80-99); PLATELET COUNT 182 K/UL (150-450); RED BLOOD COUNT 2.25 M/UL (4.70-6.10); RED CELL DISTRIBUTION WIDTH 11.7 % (11.6-14.8); WHITE BLOOD COUNT 6.2 K/UL (4.8-10.8)
[2017-09-23 05:45] LABS: ANION GAP 4 mmol/L (5-15); BLOOD UREA NITROGEN 14 mg/dL (7-18); CALCIUM 8.3 MG/DL (8.5-10.1); CARBON DIOXIDE 29 MMOL/L (21-32); CHLORIDE 110 MMOL/L (98-107); CREATININE 0.7 MG/DL (0.55-1.30); POTASSIUM 3.6 MMOL/L (3.5-5.1); SODIUM 143 MMOL/L (136-145)
[2017-09-23 08:00] VITALS: BP 129/70
--- NOTE | 2017-09-23 08:36 | General Progress Note ---
Assessment/Plan Assessment/Plan IMPRESSION: 1. Sepsis. 2. Hematuria. 3. Possible urinary tract infection. 4. Leukocytosis. 5. Tachycardia. 6. Seizure disorder PLAN IV antibiotics- add amikacin and consider dc others cbc improved irrigate check final cultures feeds vent Subjective Allergies: Coded Allergies: No Known Allergies (Unverified , 11/23/14) Subjective hematuria better cultures noted MDR Objective Last 24 Hour Vital Signs Date Time Temp Pulse Resp B/P (MAP) Pulse Ox O2 Delivery O2 Flow Rate FiO2 09/23/17 08:00 97.9 114 30 129/70 100 Mechanical Ventilator 40 97.9 09/23/17 06:51 103 19 100 Mechanical Ventilator 40 09/23/17 06:49 91 21 40 09/23/17 05:30 91 16 40 09/23/17 04:00 98 09/23/17 04:00 97.8 94 16 132/75 100 Mechanical Ventilator 40 97.8 09/23/17 04:00 40 09/23/17 03:26 100 25 40 09/23/17 01:33 112 21 100 Mechanical Ventilator 40 09/23/17 01:14 100 28 40 09/23/17 01:14 100 30 100 Mechanical Ventilator 40 09/23/17 01:14 40 09/23/17 00:00 98.9 106 26 128/73 100 Mechanical Ventilator 40 98.9 09/23/17 00:00 116 09/23/17 00:00 40 09/22/17 23:34 103 26 40 09/22/17 21:13 121 34 40 09/22/17 20:00 127 09/22/17 20:00 98.6 127 27 124/66 100 Mechanical Ventilator 40 98.6 09/22/17 20:00 40 09/22/17 19:49 118 21 100 Mechanical Ventilator 40 09/22/17 19:40 40 09/22/17 19:39 117 22 98 Mechanical Ventilator 40 09/22/17 19:38 117 21 40 09/22/17 17:07 122 19 40 09/22/17 16:02 120 09/22/17 16:00 99.0 120 19 133/78 99 Mechanical Ventilator 40 99.0 09/22/17 16:00 40 09/22/17 15:09 102 18 40 09/22/17 13:46 112 21 100 Mechanical Ventilator 40 09/22/17 13:37 40 09/22/17 13:36 110 21 98 Mechanical Ventilator 40 09/22/17 13:10 110 21 40 09/22/17 12:00 40 09/22/17 12:00 98.7 109 18 107/68 100 Mechanical Ventilator 40 98.7 09/22/17 11:46 104 09/22/17 11:09 110 24 40 09/22/17 09:09 109 26 40 09/22/17 09:00 86 99/56 Intake and Output 09/22/17 09/23/17 19:00 07:00 Intake Total 2140.833 ml 2075.000 ml Output Total 650 ml 650 ml Balance 1490.833 ml 1425.000 ml Intake Free Water 50 ml 50 ml IV Total 1450.833 ml 1615.000 ml Tube Feeding 540 ml 360 ml Other 100 ml 50 ml Output Urine Total 650 ml 650 ml # Bowel Movements 2 Laboratory Tests 09/22/17 09:45: White Blood Count 8.4#, Red Blood Count 2.53L, Hemoglobin 8.3#L, Hematocrit 24.5L, Mean Corpuscular Volume 97, Mean Corpuscular Hemoglobin 32.8H, Mean Corpuscular Hemoglobin Concent 33.8, Red Cell Distribution Width 11.7, Platelet Count 241, Mean Platelet Volume 6.2L, Neutrophils (%) (Auto) 60.0, Lymphocytes ( %) (Auto) 25.9, Monocytes (%) (Auto) 11.1H, Eosinophils (%) (Auto) 1.8, Basophils (%) (Auto) 1.2, Sodium Level 141, Potassium Level 4.0, Chloride Level 107, Carbon Dioxide Level 25, Anion Gap 9, Blood Urea Nitrogen 24H, Creatinine 0.8, Estimat Glomerular Filtration Rate > 60, Glucose Level 114H, Calcium Level 8.6 09/23/17 04:30: White Blood Count 6.2, Red Blood Count 2.25L, Hemoglobin 7.5L, Hematocrit 22.0L , Mean Corpuscular Volume 98, Mean Corpuscular Hemoglobin 33.1H, Mean Corpuscular Hemoglobin Concent 33.9, Red Cell Distribution Width 11.7, Platelet Count 182, Mean Platelet Volume 6.3L, Neutrophils (%) (Auto) , Lymphocytes (%) ( Auto) , Monocytes (%) (Auto) , Eosinophils (%) (Auto) , Basophils (%) (Auto) , Sodium Level 143, Potassium Level 3.6, Chloride Level 110H, Carbon Dioxide Level 29, Anion Gap 4L, Blood Urea Nitrogen 14, Creatinine 0.7, Estimat Glomerular Filtration Rate > 60, Glucose Level 96, Calcium Level 8.3L, Differential Total Cells Counted 100, Neutrophils % (Manual) 63, Lymphocytes % ( Manual) 27, Monocytes % (Manual) 8, Eosinophils % (Manual) 2, Basophils % ( Manual) 0, Band Neutrophils 0, Platelet Estimate Adequate, Platelet Morphology Normal, Hypochromasia 1+ Height (Feet): 5 Height (Inches): 8.00 Weight (Pounds): 235 Objective GENERAL: An ill-appearing male, reduced mental status. HEENT: Negative. Trach in place. LUNGS: With coarse breath sounds. Moderate air entry. CARDIAC: RRR ABDOMEN: Soft. G-tube. EXTREMITIES: No cyanosis or clubbing. Robles catheter in place. . PETERSON CALL Sep 23, 2017 08:36
[2017-09-23] MEDS ORDERED: Amikacin Rx to dose MISC PRN (08:45)
[2017-09-23] MEDS: Pantoprazole Inj IVP SCH (09:07)
[2017-09-23] MEDS: Piperacillin/Tazobactam 3.375 GM in D5W 110 ML IVPB SCH ×4 (09:07→16:49)
[2017-09-23] MEDS: Metoprolol Tartrate 50mg tab GT SCH (09:08)
[2017-09-23] MEDS: levETIRAcetam 500mg/5ml Liquid NG SCH ×2 (09:08→21:00)
[2017-09-23] MEDS: Vancomycin oral 125mg/2.5ml ORAL SCH ×4 (09:08→21:00)
[2017-09-23] MEDS ORDERED: Amikacin 1,250 MG in NS 110 ML IV SCH ×5 (11:00→12:30)
[2017-09-23 12:00] VITALS: BP 117/65
[2017-09-23] MEDS ORDERED: NS Irrig 1000ml ONE (15:41)
[2017-09-23] MEDS ORDERED: Tubing IV Blood Pump IV ONE (15:41)
[2017-09-23] MEDS ORDERED: NS 275ml ONE (15:41)
[2017-09-23] MEDS ORDERED: Tubing IV Secondary IV ONE ×2 (15:41)
[2017-09-23 16:00] VITALS: BP 124/71
[2017-09-23 20:00] VITALS: BP 124/63
[2017-09-23] MEDS ORDERED: Meropenem 2 GM in NS 110 ML IVPB ONE (23:00)
[2017-09-24] VITALS: BP 126/75
[2017-09-24] MEDS: Vancomycin 750mg/NS 250ml IVPB SCH (03:02)
[2017-09-24 04:00] VITALS: BP 148/81
[2017-09-24 05:11] LABS: BASOPHILS % (AUTO) 1.1 % (0.0-2.0); HEMATOCRIT 27.4 % (42.0-52.0); HEMOGLOBIN 9.5 G/DL (14.2-18.0); LYMPHOCYTES % (AUTO) 17.5 % (20.0-45.0); MEAN CORPUSCULAR VOLUME 94 FL (80-99); MONOCYTES % (AUTO) 7.4 % (1.0-10.0); NEUTROPHILS % (AUTO) 68.1 % (45.0-75.0); PLATELET COUNT 175 K/UL (150-450); RED BLOOD COUNT 2.92 M/UL (4.70-6.10); RED CELL DISTRIBUTION WIDTH 12.1 % (11.6-14.8); WHITE BLOOD COUNT 5.7 K/UL (4.8-10.8)
[2017-09-24 05:33] LABS: ANION GAP 7 mmol/L (5-15); BLOOD UREA NITROGEN 6 mg/dL (7-18); CALCIUM 8.5 MG/DL (8.5-10.1); CARBON DIOXIDE 27 MMOL/L (21-32); CHLORIDE 108 MMOL/L (98-107); CREATININE 0.6 MG/DL (0.55-1.30); POTASSIUM 3.8 MMOL/L (3.5-5.1); SODIUM 142 MMOL/L (136-145)
[2017-09-24] MEDS: Albuterol/Ipratropium 3ml neb HHN SCH ×3 (07:31→20:04)
--- NOTE | 2017-09-24 07:40 | General Progress Note ---
Assessment/Plan Assessment/Plan IMPRESSION: 1. Sepsis. 2. Hematuria. 3. Possible urinary tract infection. 4. Leukocytosis. 5. Tachycardia. 6. Seizure disorder PLAN IV antibiotics- add amikacin and consider tygacil cbc improved irrigate check final cultures feeds vent ID evaluation for dc planning Subjective Allergies: Coded Allergies: No Known Allergies (Unverified , 11/23/14) Subjective hematuria somewhat improved cultures noted MDR Objective Last 24 Hour Vital Signs Date Time Temp Pulse Resp B/P (MAP) Pulse Ox O2 Delivery O2 Flow Rate FiO2 09/24/17 07:29 86 17 100 Mechanical Ventilator 30 09/24/17 07:29 86 17 30 09/24/17 07:29 82 19 100 Mechanical Ventilator 30 09/24/17 07:29 30 09/24/17 05:17 82 20 30 09/24/17 04:00 84 09/24/17 04:00 97.0 94 18 148/81 100 30 97.0 09/24/17 04:00 30 09/24/17 03:30 78 18 30 09/24/17 01:30 82 18 30 09/24/17 00:00 30 09/24/17 00:00 98.1 86 14 126/75 100 30 98.1 09/24/17 00:00 84 09/23/17 23:58 86 22 100 Mechanical Ventilator 30 09/23/17 23:50 84 24 100 Mechanical Ventilator 30 09/23/17 23:50 30 09/23/17 22:50 85 30 30 09/23/17 22:37 98.5 09/23/17 21:38 100.5 09/23/17 20:41 84 22 30 09/23/17 20:00 95 09/23/17 20:00 30 09/23/17 20:00 100.5 91 18 124/63 100 30 100.5 09/23/17 19:20 90 18 100 Mechanical Ventilator 30 09/23/17 19:10 30 09/23/17 19:09 88 21 99 Mechanical Ventilator 30 09/23/17 19:07 86 21 30 09/23/17 16:47 100.5 09/23/17 16:41 93 27 40 09/23/17 16:00 40 09/23/17 16:00 100.0 95 25 124/71 100 40 100.0 09/23/17 16:00 95 09/23/17 15:24 97 24 40 09/23/17 13:22 40 09/23/17 13:22 92 26 100 Mechanical Ventilator 40 09/23/17 13:13 88 26 40 09/23/17 13:10 91 23 100 Mechanical Ventilator 40 09/23/17 12:11 40 09/23/17 12:00 85 09/23/17 12:00 98.0 90 18 117/65 100 Mechanical Ventilator 40 98.0 09/23/17 11:17 82 22 40 09/23/17 09:08 98 129/70 09/23/17 08:53 98 21 40 09/23/17 08:00 97.9 114 30 129/70 100 Mechanical Ventilator 40 97.9 09/23/17 08:00 95 09/23/17 08:00 40 Intake and Output 09/23/17 09/24/17 19:00 07:00 Intake Total 2435.0 ml 3180 ml Output Total 1000 ml 1800 ml Balance 1435.0 ml 1380 ml Intake Free Water 50 ml 200 ml IV Total 1355.0 ml 2370 ml Tube Feeding 540 ml 360 ml Blood Product 250 ml 250 ml Other 240 ml Output Urine Total 1000 ml 1800 ml # Bowel Movements 2 Laboratory Tests 09/24/17 03:25: White Blood Count 5.7, Red Blood Count 2.92L, Hemoglobin 9.5L, Hematocrit 27.4L , Mean Corpuscular Volume 94, Mean Corpuscular Hemoglobin 32.5H, Mean Corpuscular Hemoglobin Concent 34.6, Red Cell Distribution Width 12.1, Platelet Count 175, Mean Platelet Volume 6.4L, Neutrophils (%) (Auto) 68.1, Lymphocytes ( %) (Auto) 17.5L, Monocytes (%) (Auto) 7.4, Eosinophils (%) (Auto) 6.0H, Basophils (%) (Auto) 1.1, Sodium Level 142, Potassium Level 3.8, Chloride Level 108H, Carbon Dioxide Level 27, Anion Gap 7, Blood Urea Nitrogen 6L, Creatinine 0.6, Estimat Glomerular Filtration Rate > 60, Glucose Level 90, Calcium Level 8.5, Random Amikacin Level [Pending] Height (Feet): 5 Height (Inches): 8.00 Weight (Pounds): 230 Objective GENERAL: An ill-appearing male, reduced mental status. HEENT: Negative. Trach in place. LUNGS: With coarse breath sounds. Moderate air entry. CARDIAC: RRR ABDOMEN: Soft. G-tube. EXTREMITIES: No cyanosis or clubbing. Robles catheter in place. . PETERSON CALL Sep 24, 2017 07:40
[2017-09-24 08:00] VITALS: BP 127/70
[2017-09-24] MEDS ORDERED: Tigecycline 100 MG in NS 110 ML IVPB ONE (09:00)
[2017-09-24] MEDS: Vancomycin oral 125mg/2.5ml ORAL SCH (09:33)
[2017-09-24] MEDS: Metoprolol Tartrate 50mg tab GT SCH (09:33)
[2017-09-24] MEDS: Pantoprazole Inj IVP SCH (09:34)
[2017-09-24] MEDS: levETIRAcetam 500mg/5ml Liquid NG SCH ×2 (09:34→20:27)
--- NOTE | 2017-09-24 09:45 | Consultation ---
DATE OF CONSULTATION: 09/24/2017 INFECTIOUS DISEASE CONSULTATION This consult is for coverage of Rod Valdez M.D. CONSULTING PHYSICIAN: Victor Hugo Mena M.D. PRIMARY ATTENDING PHYSICIAN: Abrahan Umana M.D. REASON FOR CONSULTATION: Complicated UTI with multidrug-resistant organism. HISTORY OF PRESENT ILLNESS: This is a 67-year-old male, who is a [facility] resident, admitted on 20 September because of hematuria. The patient was seen by Urology and was found to have paraphimosis, also has malfunctioning of the Robles catheter that was changed. The patient had low-grade fever yesterday. A urine culture grew multidrug-resistant Klebsiella pneumoniae. PAST MEDICAL HISTORY: Significant for ventilator-dependent respiratory failure, hypertension, COPD, status post CVA, seizure disorder, anemia, diabetes mellitus. He had recent admission to [facility] with hematuria and had sepsis with vancomycin-resistant Enterococcus and Destiny tropicalis. SOCIAL HISTORY: intermediate resident. Single. No other history obtainable. PHYSICAL EXAMINATION: VITAL SIGNS: Temperature 97, pulse 82, blood pressure 148/81. GENERAL APPEARANCE: No acute distress. Opens eyes. HEAD AND NECK: Status post tracheostomy. HEART: Normal rate. LUNGS: Clear on mechanical ventilator. ABDOMEN: Soft, nontender. EXTREMITIES: He has no edema. GENITOURINARY: He has Robles catheter. No hematuria at the present time. LABORATORY AND DIAGNOSTIC DATA: WBC 5.7, he had WBC of 20,000 on , has hemoglobin 9.5, hematocrit 27.4, platelet 175,000. Sodium 142, potassium 3.8, chloride 108, bicarbonate 27, BUN 6, creatinine 0.6, glucose 90. MRSA screen negative. Blood culture x2 negative. Urine culture grew multidrug-resistant Klebsiella pneumoniae with intermediate sensitivity to amikacin and gentamicin, sensitive to Tigecycline. Chest x-ray, no acute process. Venous duplex showed no DVT. IMPRESSION: Complicated UTI with multidrug-resistant Klebsiella. The patient has hematuria, paraphimosis, ventilator-dependent respiratory failure, anemia, status post CVA, and has seizure disorder. RECOMMENDATION: Discontinue vancomycin and amikacin. We will start on Tygacil. We will follow up the clinical course. At the end of my exam, I thank Dr. Umana for involving me in the care of this patient. Victor Hugo Mena M.D. DR: Kayli JOB#: [id number] CC: DANYA
[2017-09-24 11:10] LABS: APPEARANCE,URINE CLEAR; BILIRUBIN, URINE NEGATIVE (NEGATIVE); COLOR,URINE PALE YELLOW; GLUCOSE, URINE (UA) NEGATIVE (NEGATIVE); KETONES,URINE NEGATIVE (NEGATIVE); LEUKOCYTE ESTERASE ,URINE 2+ (NEGATIVE); NITRITE,URINE NEGATIVE (NEGATIVE); PH,URINE 7 (4.5-8.0); PROTEIN,URINE NEGATIVE (NEGATIVE); UROBILINOGEN,URINE 1 MG/DL (0.0-1.0)
[2017-09-24 12:00] VITALS: BP 140/81
[2017-09-24] MEDS: Vancomycin oral 125mg/2.5ml GT SCH ×3 (13:29→20:25)
--- NOTE | 2017-09-24 15:45 | Cardiology Report ---
APPROVED REPORT EKG Measurement Heart [id number] Sinus tachycardia Possible Left atrial enlargement Left anterior fascicular block Nonspecific ST abnormality Abnormal ECG
[2017-09-24 16:00] VITALS: BP 145/81
[2017-09-24] MEDS ORDERED: NS 275ml ONE (16:27)
[2017-09-24] MEDS ORDERED: Tubing IV Secondary IV ONE (16:27)
[2017-09-24] MEDS ORDERED: Tubing Blood Filter IV ONE (16:27)
[2017-09-24 20:00] VITALS: BP 143/84
[2017-09-24] MEDS: Tigecycline 50 MG in NS 110 ML IVPB SCH (20:24)
[2017-09-25] VITALS: BP 151/84
[2017-09-25] MEDS: Albuterol/Ipratropium 3ml neb HHN SCH ×3 (01:11→13:05)
[2017-09-25 04:00] VITALS: BP 138/81
[2017-09-25 08:00] VITALS: BP 141/75
--- NOTE | 2017-09-25 08:07 | General Progress Note ---
Assessment/Plan Assessment/Plan IMPRESSION: 1. Sepsis. 2. Hematuria. 3. Possible urinary tract infection. 4. Leukocytosis. 5. Tachycardia. 6. Seizure disorder PLAN IV antibiotics- on tygacil cbc improved and normal catheter in place check final cultures feeds vent ID evaluation for dc planning Subjective ROS Limited/Unobtainable: Yes Allergies: Coded Allergies: No Known Allergies (Unverified , 11/23/14) Subjective hematuria improved cultures noted MDR Objective Last 24 Hour Vital Signs Date Time Temp Pulse Resp B/P (MAP) Pulse Ox O2 Delivery O2 Flow Rate FiO2 09/25/17 07:36 78 19 100 Mechanical Ventilator 09/25/17 07:26 84 16 100 Mechanical Ventilator 30 09/25/17 07:26 79 16 30 09/25/17 07:26 30 09/25/17 04:49 78 24 30 09/25/17 04:00 79 09/25/17 04:00 30 09/25/17 04:00 98.0 77 20 138/81 100 Mechanical Ventilator 30 98.0 09/25/17 03:30 77 24 30 09/25/17 01:14 89 21 100 Mechanical Ventilator 09/25/17 01:13 83 26 100 Mechanical Ventilator 09/25/17 01:11 86 33 30 09/25/17 00:00 74 09/25/17 00:00 30 09/25/17 00:00 98.1 85 25 151/84 100 Mechanical Ventilator 30 98.1 09/24/17 23:30 74 18 30 09/24/17 21:30 80 18 30 09/24/17 20:00 30 09/24/17 20:00 87 09/24/17 20:00 98.2 85 19 143/84 100 Mechanical Ventilator 30 98.2 09/24/17 19:40 86 20 100 Mechanical Ventilator 09/24/17 19:30 81 15 30 09/24/17 19:30 81 16 100 Mechanical Ventilator 30 09/24/17 17:21 86 24 30 09/24/17 16:00 99.3 85 18 145/81 100 Mechanical Ventilator 30 99.3 09/24/17 16:00 85 09/24/17 16:00 30 09/24/17 15:25 92 24 30 09/24/17 13:04 84 22 100 Mechanical Ventilator 30 09/24/17 12:57 30 09/24/17 12:57 83 30 100 Mechanical Ventilator 30 09/24/17 12:57 83 29 30 09/24/17 12:00 30 09/24/17 12:00 98.2 71 22 140/81 100 Mechanical Ventilator 30 98.2 09/24/17 11:45 72 09/24/17 10:34 79 19 30 09/24/17 09:33 77 127/70 09/24/17 09:10 77 24 30 Intake and Output 09/24/17 09/25/17 19:00 07:00 Intake Total 1880 ml 1740 ml Output Total 1150 ml 2300 ml Balance 730 ml -560 ml Intake Free Water 150 ml IV Total 1190 ml 1230 ml Tube Feeding 540 ml 360 ml Other 150 ml Output Urine Total 1150 ml 2300 ml # Bowel Movements 2 2 Laboratory Tests 09/24/17 11:00: Urine Color Pale yellow, Urine Appearance Clear, Urine pH 7, Urine Specific [place] 1.005, Urine Protein Negative, Urine Glucose (UA) Negative, Urine Ketones Negative, Urine Occult Blood 5+H, Urine Nitrite Negative, Urine Bilirubin Negative, Urine Urobilinogen 1H, Urine Leukocyte Esterase 2+H, Urine RBC 10-15H, Urine WBC 2-4, Urine Squamous Epithelial Cells Occasional, Urine Bacteria Occasional Height (Feet): 5 Height (Inches): 8.00 Weight (Pounds): 125 Objective GENERAL: An ill-appearing male, reduced mental status. HEENT: Negative. Trach in place. LUNGS: With coarse breath sounds. Moderate air entry. CARDIAC: RRR ABDOMEN: Soft. G-tube. EXTREMITIES: No cyanosis or clubbing. Robles catheter in place. . PETERSON CALL Sep 25, 2017 08:07
[2017-09-25] MEDS: levETIRAcetam 500mg/5ml Liquid NG SCH (09:26)
[2017-09-25] MEDS: Tigecycline 50 MG in NS 110 ML IVPB SCH (09:26)
[2017-09-25] MEDS: Pantoprazole Inj IVP SCH (09:26)
[2017-09-25] MEDS: Vancomycin oral 125mg/2.5ml GT SCH (09:26)
[2017-09-25] MEDS: Metoprolol Tartrate 50mg tab GT SCH (09:27)
--- NOTE | 2017-09-25 10:30 | Infectious Diseases Prog Note ---
Assessment/Plan Assessment/Plan A; Complicated UTI with MDR Klebsiella VDRF Hematuria resolving Paraphimosis Anemia P; Continue Tygacil Discontinue PO Vancomycin Subjective ROS Limited/Unobtainable: Yes Constitutional: Reports: other - afebrile Allergies: Coded Allergies: No Known Allergies (Unverified , 11/23/14) Objective Vital Signs Last 24 Hour Vital Signs Date Time Temp Pulse Resp B/P (MAP) Pulse Ox O2 Delivery O2 Flow Rate FiO2 09/25/17 09:27 89 141/75 09/25/17 09:01 84 22 30 09/25/17 08:00 30 09/25/17 08:00 76 09/25/17 08:00 97.5 89 24 141/75 100 Mechanical Ventilator 30 97.5 09/25/17 07:36 78 19 100 Mechanical Ventilator 09/25/17 07:26 84 16 100 Mechanical Ventilator 30 09/25/17 07:26 79 16 30 09/25/17 07:26 30 09/25/17 04:49 78 24 30 09/25/17 04:00 79 09/25/17 04:00 30 09/25/17 04:00 98.0 77 20 138/81 100 Mechanical Ventilator 30 98.0 09/25/17 03:30 77 24 30 09/25/17 01:14 89 21 100 Mechanical Ventilator 09/25/17 01:13 83 26 100 Mechanical Ventilator 09/25/17 01:11 86 33 30 09/25/17 00:00 74 09/25/17 00:00 30 09/25/17 00:00 98.1 85 25 151/84 100 Mechanical Ventilator 30 98.1 09/24/17 23:30 74 18 30 09/24/17 21:30 80 18 30 09/24/17 20:00 30 09/24/17 20:00 87 09/24/17 20:00 98.2 85 19 143/84 100 Mechanical Ventilator 30 98.2 09/24/17 19:40 86 20 100 Mechanical Ventilator 09/24/17 19:30 81 15 30 09/24/17 19:30 81 16 100 Mechanical Ventilator 30 09/24/17 17:21 86 24 30 09/24/17 16:00 99.3 85 18 145/81 100 Mechanical Ventilator 30 99.3 09/24/17 16:00 85 2/25/18 16:00 30 09/24/17 15:25 92 24 30 09/24/17 13:04 84 22 100 Mechanical Ventilator 30 09/24/17 12:57 30 09/24/17 12:57 83 30 100 Mechanical Ventilator 30 09/24/17 12:57 83 29 30 09/24/17 12:00 30 09/24/17 12:00 98.2 71 22 140/81 100 Mechanical Ventilator 30 98.2 09/24/17 11:45 72 09/24/17 10:34 79 19 30 Height (Feet): 5 Height (Inches): 8.00 Weight (Pounds): 125 General Appearance: no acute distress HEENT: status post trach Respiratory/Chest: lungs clear, other - on ventilator Cardiovascular: normal rate Abdomen: soft, non tender, other - GT feeding Genitourinary: other - Robles catheter Extremities: no edema Neurologic/Psychiatric: unresponsiveness Musculoskeletal: atrophy Microbiology Date/Time Source Procedure Growth Status 09/24/17 03:30 Stool Clostridium difficile Toxin Assay - Final Complete Laboratory Tests Test 09/24/17 11:00 Urine Color Pale yellow Urine Appearance Clear Urine pH 7 (4.5-8.0) Urine Specific [place] 1.005 (1.005-1.035) Urine Protein Negative (NEGATIVE) Urine Glucose (UA) Negative (NEGATIVE) Urine Ketones Negative (NEGATIVE) Urine Occult Blood 5+ (NEGATIVE) H Urine Nitrite Negative (NEGATIVE) Urine Bilirubin Negative (NEGATIVE) Urine Urobilinogen 1 MG/DL (0.0-1.0) H Urine Leukocyte Esterase 2+ (NEGATIVE) H Urine RBC 10-15 /HPF (0 - 0) H Urine WBC 2-4 /HPF (0 - 0) Urine Squamous Epithelial Cells Occasional /LPF Urine Bacteria Occasional /HPF (NONE) Current Medications Medications (Trade) Dose Ordered Sig/Latoya Route PRN Reason Start Time Stop Time Status Last Admin Dose Admin Acetaminophen (Tylenol) 650 mg Q4H PRN ORAL Mild Pain/Temp > 100.5 09/20/17 22:15 10/20/17 22:14 09/23/17 21:38 Al Hydroxide/Mg Hydroxide (Mylanta) 30 ml Q4HR PRN GT HEARTBURN 09/20/17 22:15 10/20/17 22:14 Albuterol/ Ipratropium (Albuterol/ Ipratropium) 3 ml Q6HRT HHN 09/21/17 01:00 09/26/17 00:59 09/25/17 07:26 Levetiracetam (Keppra) 750 mg Q12HR NG 09/21/17 09:00 10/21/17 08:59 09/25/17 09:26 Magnesium Hydroxide (Mom) 30 ml DAILYPRN PRN GT Constipation 09/20/17 22:15 10/20/17 22:14 Metoprolol Tartrate (Lopressor) 75 mg DAILY GT 09/21/17 09:00 10/21/17 08:59 09/25/17 09:27 Pantoprazole (Protonix) 40 mg DAILY IVP 09/21/17 09:00 10/21/17 08:59 09/25/17 09:26 Sodium Chloride 1,000 ml @ 100 mls/hr Q10H IV 09/20/17 23:00 10/20/17 22:59 09/25/17 03:00 Tigecycline 50 mg/ Sodium Chloride 110 ml @ 220 mls/hr EVERY 12 HOURS IVPB 09/24/17 21:00 10/01/17 20:59 09/25/17 09:26 Vancomycin HCl (Vancomycin) 125 mg FOUR TIMES A DAY GT 09/24/17 13:30 09/29/17 13:29 09/25/17 09:26 Zolpidem Tartrate (Ambien) 5 mg HSPRN PRN GT Insomnia 09/22/17 14:00 09/29/17 13:59 09/24/17 20:26 DUNG LEIGH Sep 25, 2017 10:30
[2017-09-25 12:00] VITALS: BP 132/74
[2017-09-25 16:00] VITALS: BP 150/87
[2017-09-25] MEDS ORDERED: NS 275ml ONE (16:34)
[2017-09-25] MEDS ORDERED: Tubing IV Secondary IV ONE (16:34)
[2017-09-25] MEDS ORDERED: NS Irrig 1000ml ONE (16:34)
[2017-09-25] MEDS ORDERED: Sterile Water Irrig 1000ml IRRIG ONE (16:34)
--- NOTE | 2017-09-27 13:06 | Diagnostic Imaging Report ---
APPROVED REPORT CPT Code: 02228 Present Symptoms Shortness of breath Comments: R/O DVT BILATERAL: Imaging reveals a patent deep venous system bilaterally. There is no evidence of thrombus within the femoral, popliteal or tibial segments. The greater saphenous veins are also within normal limits. Doppler indicates normal spontaneous flow within these segments.
--- NOTE | 2017-09-28 09:58 | Discharge Summary ---
Discharge Summary Hospital Course Date of Admission Sep 20, 2017 at 11:58 Date of Discharge Sep 25, 2017 at 16:35 Admitting Diagnosis gross hematuria, urethral obstuction HPI Sergei Felipe is a 67 year old male who was admitted on Sep 20, 2017 at 11:58 for Grods Hematuria/Urethral Obstruction Hospital Course dc summary #[id number] Discharge Discharge Disposition Patient was discharged to SNF/Subacute Facility(03) Discharge Diagnoses: Discharge Instructions Discharge Instructions Special Instructions I have been assigned to complete a D/C Summary on this account. I was not involved in the patient management Maisha Raines NP ([place]te[place]) Sep 28, 2017 09:58
--- NOTE | 2017-09-29 01:00 | Discharge Summary 2 SIG ---
DATE OF ADMISSION: 09/20/2017 DATE OF DISCHARGE: 09/25/2017 REASON FOR ADMISSION: 67-year-old male with history of ventilator-dependent respiratory failure, tracheostomy, obstructive uropathy, hematuria, seizure disorder, hypertension, CVA, history of sepsis presented to emergency room with hematuria for one day. The patient was seen by urologist and Robles catheter was placed. Noted leukocytosis, WBC- 13.6. Lactic acid -4.6 . Hemoglobin and hematocrit at that time were stable. Hemoglobin -14.2, hematocrit -41.3. Chest x-ray revealed no acute cardiopulmonary pathology. Urinalysis was grossly positive for urinary tract infection. The patient was admitted with diagnoses of sepsis, hematuria, UTI, seizure disorder, ventilator-dependent respiratory failure. HOSPITAL COURSE: The patient admitted to [facility]. Ventilator support and pulmonary toilet provided. No signs of respiratory distress on current settings. The patient started on empiric antibiotics. ID consulted. Urine culture revealed Klebsiella pneumonia carbapenem resistant. Stool for C. difficile was negative. Blood cultures were negative. Antibiotic regimen optimized as per ID recommendation. The patient was discharged on Tygacil. WBC up to 20.3 the next day and the patient had intermittent low-grade fevers. No fevers for 24 hours prior to discharge. leukocytosis resolved. As mentioned above, urologist seen the patient in the emergency department. Initially the patient noted to have paraphimosis. Paraphimosis was reduced with manual compression. Initially urologist tried to pass a 22-Greenlandic three-way Robles catheter however attempt failed. He was unable to irrigate catheter. Subsequently 20-gauge Green[place]ic Coude was passed with immediate return of brown dark red urine. Robles was irrigated. No clots were seen. The patient was on continuous bladder irrigation until urine was clear. Urologist recommended to leave Robles catheter until hematuria resolved and continue catheter and penile care for paraphimosis. SNF medications were resumed. Blood pressure was managed with beta-nery. Seizure precaution were maintained. No seizure activity while in the hospital. Keppra was continued. Venous duplex bilateral lower extremities was negative. Chest x-ray revealed no acute cardiopulmonary pathology. The patient noted to be anemic on 09/23/2017 with hemoglobin -7.5 and hematocrit -22. The patient subsequently undergone two units of packed red blood cell transfusion and prior to discharge hemoglobin -9.5, hematocrit -27.4. Urine clear. No signs of respiratory distress. No leukocytosis. No fever. Stable laboratory work. The patient was stable to return back to subacute nursing facility. FINAL DIAGNOSES: 1. Sepsis. 2. Hematuria. 3. Complicated urinary tract infection with Klebsiella pneumonia, carbapenem resistant. 4 . Ventilator-dependent respiratory failure with tracheostomy status. 5. Seizure disorder. 6. Anemia, status post blood transfusion. 7. Paraphimosis, reduced. DISCHARGE MEDICATION: List of medication was sent to accepting facility. DISCHARGE INSTRUCTIONS: The patient discharged to subacute long term facility. FOLLOWUP: Followup with the primary care provider and bus person at the facility. Abrahan Umana M.D. I have been assigned to dictate discharge summary on this account and I was not involved in the patient's management. Maisha SánchezNortheast Health SystemAlma Rosa N.P. DR: Roshni JOB#: [id number] CC: DANYA
== END 2017-09-25 16:35 | DRG 720 ==
LOC: EDBD 10:20 → EMR 10:30 → EDBEDREQ 11:34 → 2W 11:58 → EDBEDREQ 12:51 → 2W 09-23 01:50
PROC: 5A1955Z Respiratory Ventilation, Greater than 96 Consecutive Hours (ICD-10-PCS; principal; 2017-09-20)
DX: A41.9 Sepsis, unspecified organism (principal); Z99.11 Dependence on respirator [ventilator] status; J96.10 Chronic respiratory failure, unspecified whether with hypoxia or hypercapnia; J44.9 Chronic obstructive pulmonary disease, unspecified; N39.0 Urinary tract infection, site not specified; D64.9 Anemia, unspecified; I10 Essential (primary) hypertension; E11.9 Type 2 diabetes mellitus without complications; N13.9 Obstructive and reflux uropathy, unspecified; R31.0 Gross hematuria; N47.2 Paraphimosis; G40.909 Epilepsy, unspecified, not intractable, without status epilepticus; B96.1 Klebsiella pneumoniae [K. pneumoniae] as the cause of diseases classified elsewhere; Z16.24 Resistance to multiple antibiotics; Z86.73 Personal history of transient ischemic attack (TIA), and cerebral infarction without residual deficits; G31.84 Mild cognitive impairment of uncertain or unknown etiology; Z93.0 Tracheostomy status
CPT/HCPCS: 36415; 51702; 71045; 80048; 80053; 80150; 80202; 81001; 81003; 82550; 82553; 82962; 83605; 84484; 85007; 85025; 85610; 85730; 86850; 86900; 86901; 86920; 87040; 87070; 87081; 87086; 87181; 87205; 87324; 93005; 93970; 94002; 94003; 94640; 99285; J7620

== ENCOUNTER 2017-12-30 03:19 | Emergency (ER) | payer OTHER ==
[~2017-12-30] VITALS: Ht 177.8 cm; Wt 68.0 kg
[~2017-12-30 03:19] MED LIST changes: +ACETAMINOP160 MG/51 GT; +COLACE100 MG GT; +DULCOLAX10 MG RC; +FLUCONAZOLE100 MG GT; +LEVETIRACE100 MG/1 M GT; +OYSTER SHELL C500 MG GT; +XARELTO10 MG GT; +XARELTO20 MG GT
--- NOTE | 2017-12-30 04:01 | Emergency Room Report ---
History of Present Illness General Chief Complaint: Male Urogenital Problems Source: Medical Record, EMS Present Illness HPI This is a 67-year-old unfortunate Afro-[place]er male with multiple medical problem. He has tracheostomy on ventilator and also has a feeding tube and chronic Robles. He was sent in by skilled nursing for final functioning Robles. There is no urine output for the last day. Bladder and abdomine is distended. No fever chills but no vomiting. Unable to get any history from the patient because of his condition. Allergies: Coded Allergies: No Known Allergies (Unverified , 11/23/14) Patient History Past Medical History: see triage record, old chart reviewed Past Surgical History: other Pertinent Family History: none Social History: Denies: smoking Immunizations: other Reviewed Nursing Documentation: PMH: Agreed; PSxH: Agreed Nursing Documentation-PMH Hx Cardiac Problems: Yes Hx Hypertension: Yes Hx Pacemaker: No Hx Asthma: No Hx COPD: Yes Hx Diabetes: Yes Hx Cancer: No Hx Gastrointestinal Problems: Yes Hx Neurological Problems: Yes Hx Cerebrovascular Accident: Yes Hx Seizures: Yes Hx Epilepsy: Yes Hx Paralysis: Yes Hx Concentration Difficulty: Yes Hx Speech Problem: Yes Hx Dysphasia: Yes Hx Weakness: Yes Review of Systems Genitourinary: Reports: retention All Other Systems: limited - secondary to condition Physical Exam Vital Signs Date Time Temp Pulse Resp B/P (MAP) Pulse Ox O2 Delivery O2 Flow Rate FiO2 12/30/17 03:21 96.5 122 25 176/110 95 Mechanical Ventilator 35 96.4 vitals with high blood pressure and tachycardia Sp02 EP Interpretation: reviewed, normal General Appearance: well appearing, no apparent distress, alert Head: normocephalic, atraumatic Eyes: bilateral eye PERRL, bilateral eye EOMI ENT: hearing grossly normal, dry mucus membranes Neck: full range of motion, supple, no meningismus, tracheotomy Respiratory: chest non-tender, lungs clear, normal breath sounds Cardiovascular #1: regular rate, rhythm, no murmur, tachycardia Gastrointestinal: normal bowel sounds, non tender, no mass, no organomegaly, no bruit, non-distended, other - distended bladder Musculoskeletal: back normal Neurologic: alert, other - patient grimaced to pain with palpation of bladder Psychiatric: mood/affect normal Skin: warm/dry Procedures Additional Procedure Procedure Narrative Procedure: Robles placement Indication: Malfunction Robles and urinary retention Description: I removed the old Robles. Three-quarter of it was clogged with debris and calcium deposit. Under sterile condition I place a 24 Salvadorean Robles and inflated it. He has a clot that was dislodged and good urine output. Heart rate and blood pressure improved. He appear to be better because of it. No complication. Patient tolerated procedure with Medical Decision Making Diagnostic Impression: Primary Impression: Acute urinary retention Additional Impression: Malfunction of Robles catheter Qualified Codes: T83.011A - Breakdown (mechanical) of indwelling urethral catheter, initial encounter ER Course Patient with acute urinary retention. I place a larger Robles and had good urine output. Distention resolved. Blood pressure improved. Heart rate improved. We'll discharge back to skilled nursing. He chronic Robles and had grown out drugs resistant.. He showed no evidence of sepsis. He has no fever. Last Vital Signs Date Time Temp Pulse Resp B/P (MAP) Pulse Ox O2 Delivery O2 Flow Rate FiO2 12/30/17 03:27 120 24 Mechanical Ventilator 35 12/30/17 03:21 96.5 176/110 95 96.4 Status: improved Disposition: XFER SNF Condition: Stable Additional Instructions: Follow-up with your doctor in 7 days. Return if symptom worsen. JERE ARAIZA M.D. Dec 30, 2017 04:01
[2017-12-30 04:40] VITALS: BP 109/65
[2017-12-30] MEDS ORDERED: Morphine Sulfate 4mg/ml Inj IM ONE (04:45)
[2017-12-30 04:56] VITALS: BP 109/65
== END 2017-12-30 05:30 ==
LOC: EDBD 03:19 → EMR 04:00
DX: T83.091A Other mechanical complication of indwelling urethral catheter, initial encounter (principal); Y84.6 Urinary catheterization as the cause of abnormal reaction of the patient, or of later complication, without mention of misadventure at the time of the procedure; R33.9 Retention of urine, unspecified; Y92.129 Unspecified place in nursing home as the place of occurrence of the external cause; I10 Essential (primary) hypertension; J44.9 Chronic obstructive pulmonary disease, unspecified; E11.9 Type 2 diabetes mellitus without complications; Z86.73 Personal history of transient ischemic attack (TIA), and cerebral infarction without residual deficits; Z93.0 Tracheostomy status; Z99.11 Dependence on respirator [ventilator] status
CPT/HCPCS: 94002; 94664; 96372; 99283; J2270